=== PATIENT | male | born 1950 | race Caucasian/White ===

== ENCOUNTER 2023-06-14 19:53 | Inpatient (IN) | payer MEDICARE, OTHER, SELFPAY ==
[2023-06-14] VITALS (14 sets, daily range): BP systolic 62–119; BP diastolic 35–72; BMI 46.0; BMI 44.9
[2023-06-14 18:20] LABS: % Basophils 0.3 % (0-2); % Eosinophils 0.4 % (0-6); % Immature Granulocytes 0.7 % (0-0.5); % Lymphocytes 2.2 % (20.5-51.1); % Monocytes 5.5 % (1.7-9.3); % Neutrophils 90.9 % (42.2-75.2); Absolute Basophils 0.1 10^3/uL (0-0.2); Absolute Eosinophils 0.1 10^3/uL (0-0.7); Absolute Immature Granulocytes 0.1 10^3/uL (0-0.05); Absolute Lymphocytes 0.4 10^3/uL (1.2-3.4); Absolute Monocytes 0.9 10^3/uL (0.1-0.6); Absolute Neutrophils 14.6 10^3/uL (1.4-6.5); Hematocrit 31.9 % (39.0-52.0); Hemoglobin 10.3 g/dL (13.0-18.0); Mean Corp Hgb Conc. 32.3 g/dL (33.0-37.0); Mean Corpuscular Hgb 27.3 pg (27.0-31.0); Mean Corpuscular Volume 84.6 fL (80.0-94.0); Mean Platelet Volume 9.4 fL (7.4-10.4); Nucleated Red Blood Cells % 0 % (-); Platelet Count 265 10^3/uL (130-400); Red Blood Cell Count 3.77 10^6/uL (4.70-6.10); Red Cell Dist. Width 13.7 % (11.5-14.5); White Blood Cell Count 16.1 10^3/uL (4.8-10.8)
[2023-06-14 18:22] LABS: Urine Albumin Negative (Neg - Trace); Urine Bilirubin Negative (Negative); Urine Character Clear (Clear); Urine Color Yellow; Urine Glucose Negative (Negative); Urine Ketone Negative (Negative); Urine Leukocyte Negative (Negative); Urine Nitrite Negative (Negative); Urine Occult Blood Negative (Negative); Urine Specific Gravity 1.015 (<1.030); Urine Urobilinogen Negative (Neg - 1+)
[2023-06-14] MEDS: TYLENOL 1000 MG PO (18:26)
[2023-06-14 18:27] LABS: Lactic Acid 1.2 mmol/L (0.7-2.0)
[2023-06-14 18:29] LABS: ALT (SGPT) 19 U/L (0-50); AST (SGOT) 22 U/L (17-59); Albumin 3.8 g/dl (3.5-5.0); Alkaline Phosphatase 65 U/L (38-126); Blood Urea Nitrogen 46 mg/dl (9-20); Carbon Dioxide 22 mmol/L (22-30); Chloride 105 mmol/L (98-107); Estimated Creatinine Clearance > 125 ml/min; Glucose 117 mg/dl (70-99); Potassium 5.2 mmol/L (3.5-5.1); Sodium 134 mmol/L (135-145); Total Bilirubin 0.4 mg/dl (0.2-1.3); Total Protein 6.9 g/dl (6.3-8.2); eGFR > 60.00
--- NOTE | 2023-06-14 18:37 | ED.GENMED ---
History of Present Illness
General
Chief Complaint: Skin Problem
Time Seen by Provider: 06/14/23 18:02
Travel History
Have you had any contact with someone who has COVID-19?: No
Do you have any symptoms of coronavirus? Fever > 100 degrees, chills, cough, shortness of breath, sore throat, loss of taste or smell, muscle aches, or headache?: No
History of Present Illness
History of Present Illness:
72-year-old male with history of venous stasis and chronic right lower extremity wounds presents to the emergency department for evaluation of fever and chills developing this morning. Per his son and his right lower extremity wounds have gotten
worse and the redness and swelling of the leg has demonstrably worsened in the past 24 hours. He follows with outpatient wound care and had a wound culture that resulted today, polymicrobial growth however notable for Pseudomonas, Klebsiella,
Serratia, and beta-hemolytic strep. These results are not available in this medical record system however the son has availability of the test results on his patient portal, there is no significant resistance pattern within the microbes it appears
that ceftazidime, levofloxacin, meropenem, tobramycin all have a sensitivity to the three chief species.
Past History
Past History
ED Past Medical History: GERD, HTN, Other (Obesity, PNA, Cellulitis, Sleep Apea) and Other (Peripheral vascular disease, venous stasis ulcer)
ED Past Surgical History: Appendectomy and Tonsilectomy
Social History
Tobacco: Non-smoker
Alcohol: None
Drug: None
Personal:
Living: with family
Employment: Employed
Family History
Family History: Other (Noncontributory)
Review of Systems
Review of Systems
Allergies reviewed?: Yes
All Other Systems: ROS reviewed and negative except as documented in HPI and ROS
Phy Exam
Physical Exam
Physical Exam:
GEN: Well appearing, NAD, WDWN
Eyes: PERRLA, EOMs intact, no scleral icterus
HENT: NCAT, oral mucosa moist, no JVD, no cervical adenopathy.
Lungs: CTAB, no wheezes, rales, rhonchi, normal chest wall excursion
Cardiac: Tachycardic, regular
Abdomen: S, NT, ND, NABS, no masses or hepatosplenomegaly
Neuro: AO x 3
MSK: No gross deformity or ecchymosis. No edema. No digital clubbing
Skin: Severe edema in the right lower extremity right lower extremity lateral venous stasis ulcer, copious serosanguineous discharge. Small wounds to the medial aspect of the right lower extremity with mild bleeding
Psych: Calm, cooperative, proper hygiene
Course
Orders/Labs/Results
Orders:
Orders
06/14/23 18:01
Electrocardiogram (*1) Urgent
Reason for Study: Other
Other Reason for Exam: Possible Sepsis
EKG- Treatment ONCE
IV Insert/Care/Rem.- Treatment PRN
Straight cath- Treatment ONCE
O2 Therapy [RESP] Urgent
Titrate/Wean O2 to maintain O2 sat greater than (%): 93
Special Instructions: TO MAINTAIN CONTINUOUS O2 SATS > OR = 93%
Pulse Ox/cont/shift [RESP] Urgent
Quantity: 1
Special Instructions: CONTINUOUS
06/14/23 18:06
Complete Blood Count/With Diff Urgent
Comprehensive Metabolic Panel Urgent
Lactic Acid Q4H
Comment: ON ICE, CANCEL 2ND ORDER IF FIRST LACTIC ACID LEVEL <2
Urinalysis Reflex To Culture Urgent
Date Specimen was Collected: 06/14/23
Time Specimen was Collected: 18:01
Blood Culture Q30M
JOSUÉ Source: Blood/Venous
Specimen Description:
Comment: FROM 2 SEPARATE SITES
Blood Culture Q30M
JOSUÉ Source: Blood/Venous
Specimen Description:
Comment: FROM 2 SEPARATE SITES
06/14/23 18:23
Acetaminophen [Tylenol] 1,000 mg .ROUTE .STK-MED ONE
06/14/23 18:25
Acetaminophen [Tylenol] 1,000 mg PO NOW STA
06/14/23 18:37
LevoFLOXacin 750 MG/150 ML [Levaquin] 750 mg in 150 ml IV NOW
06/14/23 19:05
0.9% Sodium Chloride 1000 ml [Nss] 1,000 ml IV BOLUS
06/14/23 19:42
Admit/Transfer Patient As Directed
Co-Sign Provider:
Level of Care: Inpatient admission
Assign to:: IMU- Intermediate Care
Physician / Group: barbra
Diagnosis: infected venous stasis ulcer
Reason for Hospitalization: infected venous stasis ulcer
Expected length of stay greater than two midnights?: Yes
ELOS- Estimated Length of Stay in days: 2
I certify the patient meets the requirements for IP care: Yes
Code Status As Directed
Resuscitation Status: Full Code
06/14/23 19:43
Venous Doppler Lwr Ext Rt [US Periph Venous LOWER Ext RT] Urgent
Comment:
Reason For Exam: swelling, redness and pain
Abnormal Lab Results
06/14/23
18:06
WBC 16.1 H 10^3/uL
(4.8-10.8)
RBC 3.77 L 10^6/uL
(4.70-6.10)
Hgb 10.3 L g/dL
(13.0-18.0)
Hct 31.9 L %
(39.0-52.0)
MCHC 32.3 L g/dL
(33.0-37.0)
Abs Immat Gran (auto) 0.1 H 10^3/uL
(0-0.05)
Absolute Neuts (auto) 14.6 H 10^3/uL
(1.4-6.5)
Absolute Lymphs (auto) 0.4 L 10^3/uL
(1.2-3.4)
Absolute Monos (auto) 0.9 H 10^3/uL
(0.1-0.6)
Immature Gran % 0.7 H %
(0-0.5)
Neutrophils % 90.9 H %
(42.2-75.2)
Lymphocytes % 2.2 L %
(20.5-51.1)
Sodium 134 L mmol/L
(135-145)
Potassium 5.2 H mmol/L
(3.5-5.1)
BUN 46 H mg/dl
(9-20)
Glucose 117 H mg/dl
(70-99)
06/14/23 18:06
06/14/23 18:06
Vital Signs
Initial and Last Documented VS:
Initial Vital Signs
Temp Pulse Resp Pulse Ox
102.9 F H 110 28 96
06/14/23 18:01 06/14/23 18:01 06/14/23 18:01 06/14/23 18:01
Last Documented Vital Signs
Temp Pulse Resp BP Pulse Ox
100.7 F H 83 26 94/49 98
06/14/23 20:16 06/14/23 21:00 06/14/23 21:00 06/14/23 21:00 06/14/23 20:35
MDM/Problems Addressed
MDM/Problems Addressed:
Patient is septic with leukocytosis and fever most likely due to cellulitis of acute on chronic right lower extremity wound. IV Levaquin administered based on outpatient culture results. Will admit to the hospitalist service for IV antibiotics and
further management
*Critical Care Note
Total Time (30-74mins, 75-104mins- exclusive of procedures): Not Applicable
ED Attending Note
-
Portions of this chart may have been created with voice recognition software.� Occasional wrong word or��sound alike� substitutions may have occurred due to the inherent limitations of voice recognition software.
Discharge Plan
Departure
Patient Disposition: Admit
Date of Disposition: 06/14/23
Time of Disposition: 19:14
Admit to: IMU
Presentation/result/management discussed w/ accepting MD/DO: Hospitalist
Discharge Problem:
Sepsis, Cellulitis of leg, right
Interventions
Interventions:
*Risk Screen - Suicide Last Done: 06/14/23 18:01
*General Assessment Last Done: 06/14/23 18:01
*Neglect/Abuse Screening Last Done: 06/14/23 18:01
*ED COVID-19 Vaccine History Last Done: 06/14/23 18:01
[2023-06-14] MEDS: LEVAQUIN 150 IV (18:47)
[2023-06-14] MEDS: NSS 1000 IV ×3 (19:08→21:44)
--- NOTE | 2023-06-14 19:45 | HPS.HSE ---
Addendum entered and electronically signed by Bran Rice MD 06/14/23 19:50:
Patient recently had right knee surgery in January after which he subsequently developed new right lower extremity venous ulcer wound.
Original Note:
Family Physician
-
Family Physician: * NONE
Chief Complaint
-
infected wound
History of Present Illness
72-year-old male past medical history of venous stasis, chronic right lower extremity wounds, HFpEF, hypertension, GERD, obesity, sleep apnea, presenting to the emergency room for evaluation of fever and chills since this morning. As per son his
right lower extremity was gotten worse with redness and swelling of the leg in the past 2 to 3 days. He follows with outpatient wound care and had a wound culture today which showed polymicrobial growth notable for Pseudomonas, Klebsiella, Serratia
and beta-hemolytic strep. Results are available on patient portal and do not show any significant resistance pattern with 3 organisms sensitive to ceftazidime, levofloxacin, meropenem and tobramycin.
Patient originally had a right lower extremity venous stasis ulcer wound for which she was hospitalized at [facility] last year.
Patient denies smoking or alcohol.
Medical History
Past Medical History
Past Medical History: Reports Other (venous stasis, chronic right lower extremity wounds, HFpEF, hypertension, GERD, obesity, sleep apnea, )
Past Surgical History: Reports None
Social History
Tobacco: Non-smoker
Alcohol: None
Drug: None
Family History
Family History: Not pertinent
Allergies / Home Medications
Allergies reflects when Allergies were last updated in [employer].
Home Medications with original date entered in [employer]
Allergy/Medication List:
Allergies
Allergy/AdvReac Type Severity Reaction Status Date / Time
No Known Allergies Allergy Verified 02/27/18 17:28
Home Medications
ascorbic acid (vitamin C) 500 mg tablet (Vitamin C) 500 mg PO BID Supplement 02/21/18
ferrous sulfate 325 mg (65 mg iron) tablet (FeroSul) 325 mg PO BID Supplement 02/21/18
furosemide 20 mg tablet 20 mg PO BID Fluid retention/Swelling 02/21/18
tamsulosin 0.4 mg capsule 0.4 mg PO QPM Urinary issue 02/21/18
aspirin 81 mg chewable tablet 81 mg PO DAILY Blood clot prevention/tx 12/07/21
cholecalciferol (vitamin D3) 25 mcg (1,000 unit) tablet 25 mcg PO DAILY Supplement 12/07/21
glucosamine sulfate 500 mg tablet (Glucosamine) 500 mg PO HS Supplement 12/07/21
lisinopril 40 mg tablet 40 mg PO DAILY Blood pressure 12/07/21
tadalafil 5 mg tablet 5 mg PO DAILY PRN ED 06/14/23
Review of Systems
-
History Source: Patient
A 12 point ROS was completed and negative except as noted: Yes
Constitutional: Reports No Symptoms
EENT: Reports No Symptoms
Respiratory: Reports No Symptoms
Cardiac: Reports No Symptoms
Abdomen/GI: Reports No Symptoms
: Reports No Symptoms
Musculoskeletal: Reports No Symptoms
Skin: Reports See HPI
Neurological: Reports No Symptoms
Endocrine: Reports No Symptoms
Hematologic/Lymphatic: Reports No Symptoms
Psych: Reports No Symptoms
Physical Exam
Vital Signs
Vital Signs
Temp Pulse Resp BP Pulse Ox
102.9 F H 99 28 103/35 93
06/14/23 18:01 06/14/23 19:15 06/14/23 19:15 06/14/23 19:05 06/14/23 19:15
Physical Exam
General: Well Developed, Well Nourished and No Apparent Distress
HEENT: NormoCephalic, Moist mucous membranes and Atraumatic
Respiratory: Clear
Cardiac: S1/S2 and Regular Rhythm; No Murmur or Rub
GI: Soft, Non Tender, Non Distended and Normal Bowel Sounds; No Organomegaly
Rectal: Deferred by Provider
Musculoskeletal: No Clubbing, No Cyanosis and No Edema
Skin: Other (right lower extremity wounds, erythema and swelling ); No Rash
Neuro: Nonfocal/grossly intact
Laboratory Results
-
06/14/23 18:06
06/14/23 18:06
Laboratory Results
Lactic Acid Cancelled 06/14/23 22:15
Total Bilirubin 0.4 mg/dl (0.2-1.3) 06/14/23 18:06
AST 22 U/L (17-59) 06/14/23 18:06
ALT 19 U/L (0-50) 06/14/23 18:06
Alkaline Phosphatase 65 U/L (38-126) 06/14/23 18:06
Data Reviewed
-
Lab Data: Labs Reviewed by me
Old Records: Reviewed
Impression/Plan
-
IMPRESSION:
PLAN:
# Sepsis (fever, leukocytosis, tachycardia, hypotension) secondary to infected right lower extremity venous stasis ulcer/wound
-Wound culture today showed polymicrobial growth notable for Pseudomonas, Klebsiella, Serratia and beta-hemolytic strep
-Check blood cultures
-IV fluids
-Hold Lasix
-Cefepime
-Check venous ultrasound to rule out DVT
-Wound care consulted
#Chronic venous stasis dermatitis
#History of varicose veins status post vein stripping of right lower extremity
-Hold Lasix
-Patient had venous and arterial imaging in June 2022
-Continue aspirin
-Outpatient follow-up with vascular
Chronic HFpEF
-Hold Lasix
Essential hypertension
-Hold lisinopril due to hypotension
GERD
Obesity
Obstructive sleep apnea
BPH
-Continue tamsulosin
Chronic anemia
-Hemoglobin stable
-Continue ferrous sulfate
Full code
DVT prophylaxis�heparin
cardiac diet
[2023-06-14] MEDS: MAXIPIME 2000 MG IV (21:43)
[2023-06-14] MEDS: VITAMIN C 500 MG PO (21:44)
[2023-06-14] MEDS: FEOSOL 325 MG PO (21:44)
[2023-06-14] MEDS: STERILE WATER FOR INJECTION 10 ML IV (21:44)
[2023-06-14] MEDS: HEPARIN 5000 UNITS SC (21:44)
--- NOTE | 2023-06-14 22:24 | PTCARENOTE ---
Received pt from ED via stretcher. Pt AAOx3 but forgetful at times. Pt offers no complaints at this time. RLE wound is wrapped; C/D/I. (+) PP. Some moisture damage under abdominal folds; desenex ordered and applied. Pt using own urinal from
home to help minimize spilling per his son, Layton, who is at bedside. Layton - Pt's POA - also discussed that he has in the past used a CPAP but does not use it regularly. Pt has been getting increasingly more forgetful the last few months; Son has
discussed this with pt's PCP. Pt resting in bed with call perez in reach.
[2023-06-14] MEDS: TYLENOL 650 MG PO (23:30)
[2023-06-15] VITALS (24 sets, daily range): BP systolic 83–169; BP diastolic 56–110; BMI 45.2
[2023-06-15 04:42] LABS: % Basophils 0.2 % (0-2); % Immature Granulocytes 0.8 % (0-0.5); % Lymphocytes 2.2 % (20.5-51.1); % Monocytes 3.7 % (1.7-9.3); % Neutrophils 93.1 % (42.2-75.2); Absolute Immature Granulocytes 0.2 10^3/uL (0-0.05); Absolute Lymphocytes 0.4 10^3/uL (1.2-3.4); Absolute Monocytes 0.8 10^3/uL (0.1-0.6); Absolute Neutrophils 18.9 10^3/uL (1.4-6.5); Hematocrit 30.7 % (39.0-52.0); Hemoglobin 9.7 g/dL (13.0-18.0); Mean Corp Hgb Conc. 31.6 g/dL (33.0-37.0); Mean Corpuscular Hgb 27.6 pg (27.0-31.0); Mean Corpuscular Volume 87.2 fL (80.0-94.0); Mean Platelet Volume 9.9 fL (7.4-10.4); Nucleated Red Blood Cells % 0 % (-); Platelet Count 228 10^3/uL (130-400); Red Blood Cell Count 3.52 10^6/uL (4.70-6.10); Red Cell Dist. Width 14.1 % (11.5-14.5); White Blood Cell Count 20.3 10^3/uL (4.8-10.8)
[2023-06-15 05:10] LABS: ALT (SGPT) 18 U/L (0-50); AST (SGOT) 22 U/L (17-59); Albumin 3.3 g/dl (3.5-5.0); Alkaline Phosphatase 69 U/L (38-126); Blood Urea Nitrogen 43 mg/dl (9-20); Calcium 8.6 mg/dl (8.4-10.2); Carbon Dioxide 22 mmol/L (22-30); Chloride 106 mmol/L (98-107); Estimated Creatinine Clearance 119 ml/min; Glucose 105 mg/dl (70-99); Potassium 5.1 mmol/L (3.5-5.1); Sodium 136 mmol/L (135-145); Total Bilirubin 0.5 mg/dl (0.2-1.3); Total Protein 6.2 g/dl (6.3-8.2); eGFR > 60.00
[2023-06-15] MEDS: MAXIPIME 2000 MG IV ×3 (05:36→21:37)
[2023-06-15] MEDS: STERILE WATER FOR INJECTION 10 ML IV ×3 (05:36→21:38)
--- NOTE | 2023-06-15 06:01 | PTCARENOTE ---
Pt having difficulty voiding. Bladder scanned for 493; straight cath for 475. Pt has sensation to void but is unable. Notified BOOTMAKER.
--- NOTE | 2023-06-15 07:10 | W.PN.HOSP.TC ---
Today's Communication/Plan
-
Will continue on cautious IV fluids for now
Continue to hold furosemide think we can restart lisinopril at this point
Would insert Reeder catheter as suspect obstructive uropathy from prostate
Try for a void trial in 2 or 3 days
Wound care still to see
Continue cefepime based on outpatient culture results/await blood cultures
Assessment / Plan
Assessment / Plan
72-year-old male past medical history of venous stasis, chronic right lower extremity wounds, HFpEF, hypertension, GERD, obesity, sleep apnea, presenting to the emergency room for evaluation of fever and chills since this morning. As per son his
right lower extremity was gotten worse with redness and swelling of the leg in the past 2 to 3 days. He follows with outpatient wound care and had a wound culture today which showed polymicrobial growth notable for Pseudomonas, Klebsiella, Serratia
and beta-hemolytic strep. Results are available on patient portal and do not show any significant resistance pattern with 3 organisms sensitive to ceftazidime, levofloxacin, meropenem and tobramycin.
Patient originally had a right lower extremity venous stasis ulcer wound for which she was hospitalized at [facility] last year. He also had recent right total knee replacement in January
Patient denies smoking or alcohol. He denies a history of prostatic hypertrophy but is on tamsulosin and was having urinary retention of postvoid residuals of over 450 on multiple more than 1 occasion overnight.
# Sepsis (fever, leukocytosis, tachycardia, hypotension) secondary to infected right lower extremity venous stasis ulcer/wound
-No longer tachycardic and BP is stabilized
-Wound culture today showed polymicrobial growth notable for Pseudomonas, Klebsiella, Serratia and beta-hemolytic strep
-Check blood cultures
-IV fluids
-Hold Lasix
-Cefepime
-Check of on admission venous ultrasound ruled out DVT
-Wound care consulted
#Chronic venous stasis dermatitis
#History of varicose veins status post vein stripping of right lower extremity
-Hold Lasix
-Patient had venous and arterial imaging in June 2022
-Continue aspirin
-Outpatient follow-up with vascular
Chronic HFpEF
-Hold Lasix
Essential hypertension
-Hold lisinopril due to hypotension
GERD
Obesity
Obstructive sleep apnea
BPH
-Continue tamsulosin
Chronic anemia
-Hemoglobin stable
-Continue ferrous sulfate
Full code
DVT prophylaxis�heparin
cardiac diet
Anticipated Discharge: Within 24 hours
Subjective/Interval History
-
Date of Service: June 15, 2023
Issues overnight included recurrent urinary retention that required straight catheterization with some difficulty due to his body habitus and possible resistance from prostate although he denies prostate history. Patient has been on Flomax
Objective Data
-
Labs:
Laboratory Results
06/15/23
04:06
WBC 20.3 H
Hgb 9.7 L
Hct 30.7 L
Plt Count 228
Sodium 136
Potassium 5.1
Chloride 106
Carbon Dioxide 22
BUN 43 H
Creatinine 0.9
Glucose 105 H
Calcium 8.6
Total Bilirubin 0.5
AST 22
ALT 18
Alkaline Phosphatase 69
Vital Signs:
Vital Signs
Temp Pulse Resp BP Pulse Ox
99.4 F 84 24 120/62 96
06/15/23 04:11 06/15/23 06:00 06/15/23 06:00 06/15/23 06:00 06/15/23 06:00
I&O
06/14/23 06/15/23 06/16/23
06:59 06:59 06:59
Intake Total 1380 / 1380
Output Total 475 / 475
Balance 905 / 905
Physical Exam
-
General: Morbidly Obese
HEENT: Normocephalic
Respiratory: Clear to Auscultation
Cardiac: Regular Rhythm
GI: Soft
Musculoskeletal: Edema, Right Lower Extrem, Edema, Left Lower Extrem and Other (Stasis dermatitis noted throughout both lower extremities/ulcerations of right pretibial and posterior calf of right lower extremity with drainage)
Skin: Ulcers and Lesions
Neuro: Awake, Alert and Oriented
Psych: Calm
Data Reviewed
-
Total Time Spent with Patient (in minutes): 56
Labs: Labs Reviewed by me (Leukocytosis of 20,000 with left shift hemoglobin 9.7/BUN of 43/urinalysis was benign)
--- NOTE | 2023-06-15 07:37 | PTCARENOTE ---
Pt sitting on side of bed urinating in his urinal from home.
--- NOTE | 2023-06-15 07:52 | PTCARENOTE ---
Pt voided 150 louis placed with 600 out
[2023-06-15] MEDS: TYLENOL 650 MG PO ×2 (08:10→17:31)
[2023-06-15] MEDS: LOW STRENGTH ASPIRIN 81 MG PO (08:10)
[2023-06-15] MEDS: HEPARIN 5000 UNITS SC ×2 (08:11→21:37)
[2023-06-15] MEDS: ZESTRIL 40 MG PO (08:11)
[2023-06-15] MEDS: VITAMIN D3 (cholecalciferol) 25 MCG PO (08:12)
[2023-06-15] MEDS: FEOSOL 325 MG PO ×2 (08:12→19:32)
[2023-06-15] MEDS: VITAMIN C 500 MG PO ×2 (08:12→19:33)
[2023-06-15] MEDS: NSS 1000 IV (08:20)
--- NOTE | 2023-06-15 09:42 | PTCARENOTE ---
Pt desat to 82% on RA now on 2 l O2
--- NOTE | 2023-06-15 10:14 | WOUNDNOTE ---
BUTTOCKS AND POSTERIOR THIGHS
--- NOTE | 2023-06-15 10:15 | WOUNDNOTE ---
LEGS WITH RESIDUAL ZINC OXIDE TO PERIWOUND.
--- NOTE | 2023-06-15 10:15 | WOUNDNOTE ---
R POSTERIOR LEG WITH ZINC OXIDE ON PERIWOUND
--- NOTE | 2023-06-15 10:16 | WOUNDNOTE ---
R MEDIAL LOWER LEG
--- NOTE | 2023-06-15 10:17 | WOUNDNOTE ---
WON RN note: Patient admitted with RLE cellulitis and sepsis.
See H&P for complete history.
PMH: R knee surgery, morbid obesity, HTN, chronic R leg venous stasis ulcer for several years, RLE vein stripping, appendectomy, lymphedema.
Wound Location and type/assessment: Patient admitted with R lower leg venous stasis ulcers. Large open cluster posterior lower leg and small weeping area medial lower leg. Vascular ultrasound negative for DVT. Both legs with lymphedema and are dry,
L leg without any ulcers, heels intact. Patient known to service and last seen 12/09/21. This time leg not as red and swollen, patient states he gets daily dressing changes by VN. Patient's son at bedside updated on current dressings and compression
being used. Been to wound center in past but has difficulty travelling to [facility] now. Patient states he was told not to use Lymphedema pumps after knee surgery this past January. With assist of 3 staff members patient ambulated from bedside commode
to bed. Gluteal cleft with slit opening, suspect from MASD. Patient now has a Reeder in for retention, was incontinent of some stool on Ultrasorb pad. Sacrum is intact, posterior thighs with chronic discoloration. Patient confirmed he sits in
recliner chair allot, not able to properly elevate legs.
Appetite: good.
Pressure redistribution devices in place: Centrella Max air. Needs assist with ADL's.
Plan: RLE dressing changed using Xeroform and dry dressing with martha wrap knee high. Miconazole powder already on order for skin folds. Applied silicone foam to gluteal cleft, next change can add fungal powder and soft gauze if foam not working.
Applied A&D ointment to dry skin on legs, ordered mineral oil to start tomorrow.
Will confirm orders with hospitalist and updated JOHN Rand. Care plan to be updated and will follow as needed.
Note to case management requested for discharge: Continue VN if home.
Patient to follow up at wound care center if able upon discharge.
--- NOTE | 2023-06-15 14:32 | CM ---
CM met with pt bedside
Pt recently
His son and family now live in the main house
he moved into an attached inlaw suite, no setps to enter
Pt notes independence with his ADLs with use of a WW
He has a handicap accessible bathroom
He has a cpap provided by [facility] and is not not on oxygen at baseline
Pt notes he is currently working with [facility]
He also currently attends outpatient WOC
PCP- Paty Mills
Rx-[facility] [address] [facility]
Per nursing, pt is a 2-3 person assist
PT eval pending
Anticipate SNF recommendation- PAC provided
Pt will have qualifying stay on 06/16
WOC following with recommendations for VN or outpt WOC follow up
Discharge Disposition- anticipate SNF
[2023-06-15] MEDS: FLOMAX 0.400000000000000022 MG PO (17:31)
--- NOTE | 2023-06-15 22:20 | PTCARENOTE ---
This RN discussed POC with pt and pt's son at bedside. Pt's son remains very involved in pt care and inquires about case management involvement and plan going forward. This RN discussed wound care and maintenance, hygiene care, and ADLs with pt and
son at bedside. Pt was able to use BSC with rolling walker and assist x3. Pt requires a lot of assistance standing up, but is able to take small steps with less assistance using the rolling walker. Son brought in home CPAP and pt is agreeable to
wear HS. Call perez within reach.
[2023-06-16] VITALS (11 sets, daily range): BP systolic 95–167; BP diastolic 50–93; PULSE 88; O2SAT 98–99; BMI 44.3
[2023-06-16] MEDS: MAALOX 30 ML PO ×2 (02:32→08:44)
--- NOTE | 2023-06-16 02:34 | PTCARENOTE ---
Pt c/o cramping stomachache which is causing increasing discomfort with nausea. Pt states he would normally take maalox when he feels this way. Maalox 30ml ordered by SHAYLA and given per APR.
[2023-06-16] MEDS: STERILE WATER FOR INJECTION 10 ML IV ×3 (05:23→21:20)
[2023-06-16] MEDS: MAXIPIME 2000 MG IV ×3 (05:23→21:20)
[2023-06-16 06:22] LABS: Hematocrit 29.6 % (39.0-52.0); Hemoglobin 9.3 g/dL (13.0-18.0); Mean Corp Hgb Conc. 31.4 g/dL (33.0-37.0); Mean Corpuscular Hgb 27.4 pg (27.0-31.0); Mean Corpuscular Volume 87.3 fL (80.0-94.0); Mean Platelet Volume 9.7 fL (7.4-10.4); Platelet Count 184 10^3/uL (130-400); Red Blood Cell Count 3.39 10^6/uL (4.70-6.10); Red Cell Dist. Width 14.2 % (11.5-14.5); White Blood Cell Count 8.4 10^3/uL (4.8-10.8)
[2023-06-16 06:50] LABS: Blood Urea Nitrogen 25 mg/dl (9-20); Calcium 8.7 mg/dl (8.4-10.2); Carbon Dioxide 23 mmol/L (22-30); Chloride 107 mmol/L (98-107); Estimated Creatinine Clearance > 125 ml/min; Glucose 119 mg/dl (70-99); Potassium 4.6 mmol/L (3.5-5.1); Sodium 133 mmol/L (135-145); eGFR > 60.00
--- NOTE | 2023-06-16 07:06 | W.PN.HOSP.TC ---
Today's Communication/Plan
-
Seems to be responding is no longer tachycardic no longer hypotensive and leukocytosis resolved and no longer febrile
Has developed na
usea since here and may be in relation to cefepime will consult ID for possible alternative to treat his polymicrobial infection of his wound
Increase activity
Resuming antihypertensives
Continue to monitor CBC and BMP
Assessment / Plan
Assessment / Plan
72-year-old male past medical history of venous stasis, chronic right lower extremity wounds, HFpEF, hypertension, GERD, obesity, sleep apnea, presenting to the emergency room for evaluation of fever and chills since this morning. As per son his
right lower extremity was gotten worse with redness and swelling of the leg in the past 2 to 3 days. He follows with outpatient wound care and had a wound culture today which showed polymicrobial growth notable for Pseudomonas, Klebsiella, Serratia
and beta-hemolytic strep. Results are available on patient portal and do not show any significant resistance pattern with 3 organisms sensitive to ceftazidime, levofloxacin, meropenem and tobramycin.
Patient originally had a right lower extremity venous stasis ulcer wound for which she was hospitalized at [place] last year. He also had recent right total knee replacement in January
Patient denies smoking or alcohol. He denies a history of prostatic hypertrophy but is on tamsulosin and was having urinary retention of postvoid residuals of over 450 on multiple more than 1 occasion overnight.
# Sepsis (fever, leukocytosis, tachycardia, hypotension) secondary to infected right lower extremity venous stasis ulcer/wound
-No longer tachycardic and BP is stabilized
-Leukocytosis now resolved from 20,000
-Wound culture today showed polymicrobial growth notable for Pseudomonas, Klebsiella, Serratia and beta-hemolytic strep
-Check blood cultures no growth to date
-IV fluids have been discontinued
-Hold Lasix
-Cefepime may be offering some side effects with nausea
-Check of on admission venous ultrasound ruled out DVT
-Wound care consulted
-Consult ID with input on possible alternative to cefepime that is causing nausea I believe
#Chronic venous stasis dermatitis
#History of varicose veins status post vein stripping of right lower extremity
-Hold Lasix
-Patient had venous and arterial imaging in June 2022
-Continue aspirin
-Outpatient follow-up with vascular
Chronic HFpEF
-Hold Lasix
Essential hypertension
-Hold lisinopril due to hypotension
-Lisinopril resumed/SBP improved
GERD
Obesity
Obstructive sleep apnea
BPH
-Continue tamsulosin
Chronic anemia
-Hemoglobin stable
-Continue ferrous sulfate
Full code
DVT prophylaxis�heparin
cardiac diet
Anticipated Discharge: 24 - 48 hours
Subjective/Interval History
-
Date of Service: June 16, 2023
Complaining of nausea anytime he attempts to eat he has only noticed this once he was hospitalized. He had relief with Maalox last night. He did develop some loose stooling but has since developed some more formed to loose stools overnight.
Objective Data
-
Labs:
Laboratory Results
06/16/23
06:00
WBC 8.4
Hgb 9.3 L
Hct 29.6 L
Plt Count 184
Sodium 133 L
Potassium 4.6
Chloride 107
Carbon Dioxide 23
BUN 25 H
Creatinine 0.6 L
Glucose 119 H
Calcium 8.7
Vital Signs:
Vital Signs
Temp Pulse Resp BP Pulse Ox
98.9 F 80 26 113/68 96
06/16/23 03:30 06/16/23 06:00 06/16/23 06:00 06/16/23 06:00 06/16/23 06:00
I&O
06/15/23 06/16/23 06/17/23
06:59 06:59 06:59
Intake Total 1380 / 1380 840 / 840
Output Total 475 / 475 1800 / 1800
Balance 905 / 905 -960 / -960
Review of Systems
-
History Source: Patient and Family
Constitutional: Reports Fever (No fever last 24 hours)
Respiratory: Reports No Symptoms
Cardiac: Reports No Symptoms
Abdomen/GI: Reports No Symptoms and Diarrhea (Some form now)
Physical Exam
-
General: Obese
HEENT: Normocephalic
Respiratory: Clear to Auscultation
Cardiac: Regular Rhythm
GI: Soft, Nontender and Nondistended
Musculoskeletal: Edema, Right Lower Extrem (Med wrap around the area of ulceration and pretibial with surrounding stasis changes to both legs)
Skin: Ulcers and Lesions
Neuro: Awake
Data Reviewed
-
Total Time Spent with Patient (in minutes): 56
Labs: Labs Reviewed by me (Leukocytosis now resolved from 20,000-8.4 this morning./BUN down to 25 from 45 creatinine to 0.6)
[2023-06-16] MEDS: FEOSOL 325 MG PO ×2 (07:25→19:49)
[2023-06-16] MEDS: VITAMIN C 500 MG PO ×2 (07:25→19:49)
[2023-06-16] MEDS: HEPARIN 5000 UNITS SC (07:25)
[2023-06-16] MEDS: LOW STRENGTH ASPIRIN 81 MG PO (07:25)
[2023-06-16] MEDS: VITAMIN D3 (cholecalciferol) 25 MCG PO (07:25)
[2023-06-16] MEDS: ZESTRIL 40 MG PO (07:26)
[2023-06-16] MEDS: HYDROPHOR 1 APPLIC TOPICAL (07:26)
[2023-06-16] MEDS: DESENEX/MITRAZOL/ZEASORB 1 APPLIC TOPICAL (09:24)
--- NOTE | 2023-06-16 11:21 | PN.CDI ---
CDI
- -
CDI:
Physician Documentation Request
Admit Date: 06/14/23 19:53
Dear Doctor Terri,
Please review the following and provide your response in the progress notes.
Clinical Indicators:
Pt admitted with sepsis 2/2 Venous stasis dermatitis infected ulcer
Sodium labs are as below/ Did get IVFs
Laboratory Tests
06/14/23 06/16/23
18:06 06:00
Sodium 134 L 133 L
Based on the above, could you clarify in the progress notes, the appropriate diagnosis, if significant, that supports the above abnormalities and additional evaluation, monitoring and/or treatment rendered:
Hyponatremia
Abnormal lab value only
Other
Use of terms such as suspected, likely, concern for, or probable (associated with a specific diagnosis that is being evaluated, monitored, or treated as if it exists) are acceptable and can be coded in the inpatient setting, when documented at the
time of discharge.
Thank you,
Janet Jensen RN
CDI Specialist
[facility]
Please use your independent medical judgment in providing your response.
--- NOTE | 2023-06-16 12:42 | CON.ID ---
Consultation
-
Date/Time Consultation Requested: 06/16/2023 07:16
Date/Time Consultation Performed: 06/16/2023 1200
Requesting Provider: Dr. Murray
Performing Provider: Dr. Bonilla
Reason for Consultation: Fever, right lower extremity cellulitis
Chief Complaint / Past History
History of Present Illness
Jarret Jack is a 72-year-old man being evaluated at the request of Dr. Murray in regards to right lower extremity cellulitis. History is obtained from chart review, along with patient interview.
The patient has a significant past medical history of lower extremity venous stasis with ulcerations, along with chronic right lower extremity lymphedema. He reports that he has been caring for his right leg with compression wraps, but
approximately 2 days ago, he developed worsening of his chronic right lower extremity edema and developed fevers, chills and rigors. He reports he has been followed by wound care, and recent cultures revealed growth for Pseudomonas, Klebsiella,
Serratia and strep. spp. He reports that the day before presenting to the hospital he was started on outpatient antibiotics, but does not recall which particular antibiotic it was.
Upon presentation to the hospital he was found to be febrile to 102.9 degrees, and he was also found to have a leukocytosis. He was placed on empiric antibiotics, and Infectious Diseases is asked to comment upon further antimicrobial management.
At present, he denies any current fevers. He denies any significant pain in the right lower extremity or the groin. He notes no lymphadenopathy. He has reported some abdominal discomfort.
Past History
Additional Past Medical History:
GERD
Hypertension
Obesity (current BMI = 44)
Sleep apnea
Peripheral vascular disease
Venous stasis bilateral lower extremities
Chronic right lower extremity lymphedema
Additional Past Surgical History:
Appendectomy
Vein surgery
T&A
Allergy History:
No Known Allergies Allergy (Verified 02/27/18 17:28)
Medications Reviewed: Yes
Current Antibiotics:
Cefepime 2 g IV every 8 hours
Social History
Tobacco: Non-Smoker
Alcohol: None
Drug: None
Personal:
Living: With Family
Employment: Not Employed
Family History
Family History: Not Pertinent
Review of Systems
Vital Signs
Temp Pulse Resp BP Pulse Ox
98.5 F 77 26 124/65 99
06/16/23 11:20 06/16/23 07:26 06/16/23 07:25 06/16/23 07:26 06/16/23 11:00
Physical Exam
Physical Exam
Constitutional: No Acute Distress, Comfortable and Non-toxic
Eyes: No Conjunctival Hemorrhage and Sclera Anicteric
Cardiovascular: Regular Rate and S1/S2; Negative S3/S4
Pulmonary: Clear and Non Labored; Negative Wheezes, Rales or Rhonchi
Gastrointestinal: Soft, Non Tender, Non Distended, Normal Bowel Sounds and No Rebound
Extremities: Edema (4+), Erythema and Venous Insufficiency (B/L LE's); Negative Cyanosis
Musculoskeletal: Negative Joint Swelling
Skin: Warm and Dry
Wound: Other (RLE; superficial and related to venous insufficiency)
Neurological: Awake and Alert
Psychological: Calm
Lab / Diagnostic Study Results
06/16/23 06:00
06/16/23 06:00
Abs Immat Gran (auto) 0.2 10^3/uL (0-0.05) H 06/15/23 04:06
Absolute Neuts (auto) 18.9 10^3/uL (1.4-6.5) H 06/15/23 04:06
Absolute Lymphs (auto) 0.4 10^3/uL (1.2-3.4) L 06/15/23 04:06
Absolute Monos (auto) 0.8 10^3/uL (0.1-0.6) H 06/15/23 04:06
Absolute Basos (auto) 0.0 10^3/uL (0-0.2) 06/15/23 04:06
Immature Gran % 0.8 % (0-0.5) H 06/15/23 04:06
Neutrophils % 93.1 % (42.2-75.2) H 06/15/23 04:06
Lymphocytes % 2.2 % (20.5-51.1) L 06/15/23 04:06
Monocytes % 3.7 % (1.7-9.3) 06/15/23 04:06
Eosinophils % 0.0 % (0-6) 06/15/23 04:06
Basophils % 0.2 % (0-2) 06/15/23 04:06
Lactic Acid Cancelled 06/14/23 22:15
Microbiology Results
Micro:
06/14/23 22:08 MRSA Screen - Final
Nose No Methicillin Resistant Staphylococcus aureus isolated.
06/14/23 18:06 Blood Culture - Preliminary
Blood/Venous No Growth in 24 hours- Final report to follow
06/14/23 18:06 Blood Culture - Preliminary
Blood/Venous No Growth in 24 hours- Final report to follow
Imaging:
06/14/2023 lower extremity duplex ultrasound: Overall study is limited by body habitus. No evidence of femoral-popliteal deep venous thrombosis noted.
Assessment / Plan
Right lower extremity cellulitis
Fever
Leukocytosis
Chronic right lower extremity lymphedema
Obesity (current BMI = 44)
GERD
Hypertension
Sleep apnea
Peripheral vascular disease
Venous stasis bilateral lower extremities
Recommendations:
Continue with empiric cefepime for the present. Would continue with higher dose given morbid obesity.
Monitor blood cultures. These may ultimately be negative, though, given that the patient reports antibiotic therapy prior to admission.
Continue with local care to the right lower extremity wound.
Continue with lower extremity compressive modalities. Given overall body habitus, Med wrap's would be most beneficial.
Follow white count temperature curve
--- NOTE | 2023-06-16 14:45 | CM ---
CM following re:discharge planning.
Reviewed pt's chart, met with pt, pt's sister in law at bedside and spoke to pt's son Layton 3 times today.
PT and OT evaluations requested this morning and after their evaluations SNF level of care recommended. CM discussed it with pt, pt's sister in law and pt's son Layton who stated he has POA. A list of SNFs provided. Pt's son stated that pt was at [facility] in January 2023 and went to [facility], had At home rehab. Both pt and his family preferred [facility] as number one pice and [facility] as a back up plan. A referral to above SNFs made. Awaiting for determination.
D/C plan: preferred SNF. Number one choice - [facility]
CM will follow to assist pt with discharge to a preferred SNF.
--- NOTE | 2023-06-16 15:51 | PTCARENOTE ---
Verbal report called to Isha Orellana on .
[2023-06-16] MEDS: FLOMAX 0.400000000000000022 MG PO (17:25)
--- NOTE | 2023-06-16 18:13 | PTCARENOTE ---
Patient transferred from the ICU into room 401-01. Vital signs stable. Patient oriented to room and use of call perez and verbalizes understanding. Denies complaints at this time.
[2023-06-16] MEDS: LOVENOX 40 MG SC (18:41)
[2023-06-16 18:55] LABS: Hepatitis C Antibody Negative (Negative)
[2023-06-17 02:24] VITALS: BP 112/58
[2023-06-17] MEDS: STERILE WATER FOR INJECTION 10 ML IV ×3 (05:28→22:36)
[2023-06-17] MEDS: MAXIPIME 2000 MG IV ×3 (05:28→22:37)
[2023-06-17] MEDS: VITAMIN C 500 MG PO ×2 (07:15→19:50)
[2023-06-17] MEDS: LOW STRENGTH ASPIRIN 81 MG PO (07:15)
[2023-06-17] MEDS: FEOSOL 325 MG PO ×2 (07:15→19:50)
[2023-06-17] MEDS: VITAMIN D3 (cholecalciferol) 25 MCG PO (07:15)
[2023-06-17 07:25] VITALS: BP 107/57
[2023-06-17 07:53] LABS: Mean Corpuscular Hgb 27.3 pg (27.0-31.0); Mean Corpuscular Volume 87.9 fL (80.0-94.0); Mean Platelet Volume 9.5 fL (7.4-10.4); Platelet Count 189 10^3/uL (130-400); Red Cell Dist. Width 14.2 % (11.5-14.5); White Blood Cell Count 7.2 10^3/uL (4.8-10.8)
[2023-06-17 08:35] LABS: Blood Urea Nitrogen 19 mg/dl (9-20); Calcium 8.8 mg/dl (8.4-10.2); Carbon Dioxide 24 mmol/L (22-30); Chloride 102 mmol/L (98-107); Estimated Creatinine Clearance > 125 ml/min; Glucose 123 mg/dl (70-99); Potassium 4.3 mmol/L (3.5-5.1); Sodium 132 mmol/L (135-145); eGFR > 60.00
[2023-06-17] MEDS: ZESTRIL 40 MG PO (08:37)
[2023-06-17] MEDS: HYDROPHOR 1 APPLIC TOPICAL (08:41)
--- NOTE | 2023-06-17 08:58 | W.PN.ID1 ---
Date of Service
Date of Service: June 17, 2023
Today's Communication
Continue antibiotics per
Assessment / Plan
Right lower extremity cellulitis
Fever
- improved
Leukocytosis
- resolved
Chronic right lower extremity lymphedema
Obesity (current BMI = 44)
GERD
Hypertension
Sleep apnea
Peripheral vascular disease
Severe venous stasis bilateral lower extremities
Recommendations:
Continue with empiric cefepime for the present. Would continue with higher dose given morbid obesity.
Monitor blood cultures. These may ultimately be negative, though, given that the patient reports antibiotic therapy prior to admission.
Continue with local care to the right lower extremity wound.
Continue with lower extremity compressive modalities. Given overall body habitus, Med wrap's would be most beneficial. I have offered to MED wrap the LLE but patient had declined at present.
Follow white count temperature curve
If overall stable/improved in the next 24 to 48 hours, can likely transition to oral levofloxacin 750 mg every 24 hours for an additional 5 days.
Patient counseled on lymphedema and venous insufficiency/stasis treatment modalities.
Chief Complaint
-: Cellulitis (RLE)
Subjective / Review of Systems
Review of Systems: No Fever and No Chills
Vital Signs / Physical Exam
Vital Signs
Vital Signs
Temp Pulse Resp BP Pulse Ox
97.7 F 86 18 107/57 96
06/17/23 07:25 06/17/23 08:37 06/17/23 07:25 06/17/23 08:37 06/17/23 07:25
Physical Exam
Constitutional: No Acute Distress, Comfortable, Non-toxic and Obese
Eyes: No Conjunctival Hemorrhage; Negative Sclera Anicteric
Cardiovascular: S1/S2; Negative S3/S4
Pulmonary: Non Labored
Gastrointestinal: Soft, Non Tender and Non Distended
Extremities: Edema (4+ RLE edema) and Venous Insufficiency (severe; LLE)
Skin: Warm and Dry
Neurological: Awake and Alert
Psychological: Calm
Objective Data
Lab Data
Lab Results
06/17/23 07:39
06/17/23 07:39
Estimated Creat Clear > 125 ml/min 06/17/23 07:39
Lactic Acid Cancelled 06/14/23 22:15
Total Bilirubin 0.5 mg/dl (0.2-1.3) 06/15/23 04:06
AST 22 U/L (17-59) 06/15/23 04:06
ALT 18 U/L (0-50) 06/15/23 04:06
Alkaline Phosphatase 69 U/L (38-126) 06/15/23 04:06
Most recent labs reviewed.
Micro Results:
06/14/23 18:06 Blood Culture - Preliminary
Blood/Venous No Growth in 48 hours- Final report to follow
06/14/23 18:06 Blood Culture - Preliminary
Blood/Venous No Growth in 48 hours- Final report to follow
06/14/23 22:08 MRSA Screen - Final
Nose No Methicillin Resistant Staphylococcus aureus isolated.
Imaging:
06/14/2023 lower extremity duplex ultrasound: Overall study is limited by body habitus. No evidence of femoral-popliteal deep venous thrombosis noted.
--- NOTE | 2023-06-17 09:24 | W.PN.HOSP.TC ---
Today's Communication/Plan
-
Continue present course of cefepime/ID following will give us a outpatient treatment course
She obese stable for discharge to a rehab facility in the next 24 hours
Resume Lasix
Assessment / Plan
Assessment / Plan
72-year-old male past medical history of venous stasis, chronic right lower extremity wounds, HFpEF, hypertension, GERD, obesity, sleep apnea, presenting to the emergency room for evaluation of fever and chills since this morning. As per son his
right lower extremity was gotten worse with redness and swelling of the leg in the past 2 to 3 days. He follows with outpatient wound care and had a wound culture today which showed polymicrobial growth notable for Pseudomonas, Klebsiella, Serratia
and beta-hemolytic strep. Results are available on patient portal and do not show any significant resistance pattern with 3 organisms sensitive to ceftazidime, levofloxacin, meropenem and tobramycin.
Patient originally had a right lower extremity venous stasis ulcer wound for which she was hospitalized at [place] last year. He also had recent right total knee replacement in January
Patient denies smoking or alcohol. He denies a history of prostatic hypertrophy but is on tamsulosin and was having urinary retention of postvoid residuals of over 450 on multiple more than 1 occasion overnight.
# Sepsis (fever, leukocytosis, tachycardia, hypotension) secondary to infected right lower extremity venous stasis ulcer/wound
-No longer tachycardic and BP is stabilized
-Leukocytosis now resolved from 20,000
-Wound culture today showed polymicrobial growth notable for Pseudomonas, Klebsiella, Serratia and beta-hemolytic strep
-Check blood cultures no growth to date
-IV fluids have been discontinued
-Hold Lasix
-Cefepime may be offering some side effects with nausea
-Check of on admission venous ultrasound ruled out DVT
-Wound care consulted
-Consult ID with input on possible alternative to cefepime believe should continue on cefepime
#Chronic venous stasis dermatitis
#History of varicose veins status post vein stripping of right lower extremity
-Hold Lasix
-Patient had venous and arterial imaging in June 2022
-Continue aspirin
-Outpatient follow-up with vascular
Chronic HFpEF
-Hold Lasix
-Can be resumed
Essential hypertension
-Hold lisinopril due to hypotension
-Lisinopril resumed/SBP improved
GERD
Obesity
Obstructive sleep apnea
BPH
-Continue tamsulosin
Chronic anemia
-Hemoglobin stable
-Continue ferrous sulfate
Full code
DVT prophylaxis�heparin
cardiac diet
Anticipated Discharge: Within 24 hours
Subjective/Interval History
-
Date of Service: June 17, 2023
Improved for first day he has an appetite and feels that his nausea is also going away
Objective Data
-
Labs:
Laboratory Results
06/17/23
07:39
WBC 7.2
Hgb 9.0 L
Hct 29.0 L
Plt Count 189
Sodium 132 L
Potassium 4.3
Chloride 102
Carbon Dioxide 24
BUN 19
Creatinine 0.6 L
Glucose 123 H
Calcium 8.8
Vital Signs:
Vital Signs
Temp Pulse Resp BP Pulse Ox
97.7 F 86 18 107/57 96
06/17/23 07:25 06/17/23 08:37 06/17/23 07:25 06/17/23 08:37 06/17/23 07:25
I&O
06/16/23 06/17/23 06/18/23
06:59 06:59 06:59
Intake Total 840 / 840 970 / 970
Output Total 1800 / 1800 1924 / 1924
Balance -960 / -960 -955 / -955
Review of Systems
-
Unable to obtain full review of systems at this time due to: Dementia
History Source: Patient
Constitutional: Reports No Symptoms
Respiratory: Reports No Symptoms
Cardiac: Reports No Symptoms
Abdomen/GI: Reports No Symptoms
Skin: Reports Sores (rle)
Physical Exam
-
General: Morbidly Obese
HEENT: Normocephalic
Cardiac: Regular Rhythm
GI: Soft and Nontender
Genito-urinary: No Costovertebral Tender
Skin: Warm and Ulcers (rle pretib ulcerations over stasis changes)
Neuro: Awake
Psych: Calm
Data Reviewed
-
Total Time Spent with Patient (in minutes): 678
Labs: Labs Reviewed by me (No leukocytosis hemoglobin stable 9.0 chemistries sodium 132)
[2023-06-17] MEDS: LASIX 20 MG PO ×2 (09:52→19:49)
--- NOTE | 2023-06-17 13:24 | W.DS.TRANS ---
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
-
Discharge Instructions:
Discharge Diagnosis/Procedures Right lower extremity cellulitis
Leukocytosis resolved
morbid obesity with BMI of 44
Sleep apnea
Severe venous stasis bilateral lower extremity
Diet As tolerated
Activity As tolerated
Driving Restrictions As prior to admission
Instructions:
Stand-Alone Forms:
Changes to Home Medications: Yes
Discharge Medications:
DC Medications w/original date entered in [employer]
ascorbic acid (vitamin C) 500 mg tablet (Vitamin C) 500 mg PO BID Supplement 02/21/18
ferrous sulfate 325 mg (65 mg iron) tablet (FeroSul) 325 mg PO BID Supplement 02/21/18
furosemide 20 mg tablet 20 mg PO BID Fluid retention/Swelling 02/21/18
tamsulosin 0.4 mg capsule 0.4 mg PO QPM Urinary issue 02/21/18
aspirin 81 mg chewable tablet 81 mg PO DAILY Blood clot prevention/tx 12/07/21
cholecalciferol (vitamin D3) 25 mcg (1,000 unit) tablet 25 mcg PO DAILY Supplement 12/07/21
glucosamine sulfate 500 mg tablet (Glucosamine) 500 mg PO HS Supplement 12/07/21
lisinopril 40 mg tablet 40 mg PO DAILY Blood pressure 12/07/21
tadalafil 5 mg tablet 5 mg PO DAILY PRN ED 06/14/23
levofloxacin 750 mg tablet 750 mg PO DAILY #5 tabs 06/17/23
Home Medication Changes
levofloxacin 750 mg tablet 750 mg PO DAILY #5 tabs 06/17/23
Pending Results: No
Total time spent discharging patient (in min): 38
--- NOTE | 2023-06-17 13:26 | W.DCSUMMARY ---
Addendum entered and electronically signed by Tucker Murray MD 06/19/23 09:09:
Patient decided to wait an extra day to be reevaluated to see if he can have home care instead of an acute rehab facility and now is ready for discharge after being seen and evaluated by myself and evaluated by PT will arrange for [facility] for wound care
follow-up I have also advised him to continue compression dressings to his right lower extremity but probably both would be prudent I have advised that lymphedema follow-up but he was reticent to pursue that at this time. Will call in a
prescription for Levaquin 750 mg p.o. daily to his local pharmacy to complete a 5-day course going forward.
New discharge date now will be 19 Jun 2023
Original Note:
Discharge Summary
Discharge Data
Date of Admission: 06/14/23
Date of Discharge: 06/17/23
-
Pending Results: No
Hospital Course
72-year-old male past medical history of venous stasis, chronic right lower extremity wounds, HFpEF, hypertension, GERD, obesity, sleep apnea, presenting to the emergency room for evaluation of fever and chills since morning of admission as per son
his right lower extremity was gotten worse with redness and swelling of the leg in the past 2 to 3 days. Prior to admission. He follows with outpatient wound care and had a wound culture today which showed polymicrobial growth notable for
Pseudomonas, Klebsiella, Serratia and beta-hemolytic strep. Sensitivities reported to ceftazidime, levofloxacin, meropenem and tobramycin.
With his presentation of sepsis including fever leukocytosis tachycardia hypotension patient was admitted to the intermediate care unit. Presumptive diagnosis at time of presentation is right lower extremity cellulitis in the setting of severe
bilateral stasis dermatitis.
Initial leukocytosis of 20,000 improved after course of IV fluids and IV antibiotics with cefepime based on his weight at 2 g daily at time of presentation his furosemide dosing was withheld. An admission venous ultrasound did not show any signs of
DVT.
Wound care consultation sought along with infectious disease consultation after the patient developed some nausea believed to be possibly in relation to his cefepime/this later resolved and ID input recommended continuation of cefepime at present
dosing
He has had complete resolution of leukocytosis and return to baseline renal function. At this point in time his appetite is returning better. Recommendations from the infectious disease service is for continuation of a course of levofloxacin 750
mg for next 5 days blood cultures to date have remained negative and should be kept in mind the patient has been on empiric antibiotic coverage prior to presentation. Recommendation for ongoing wound care are enclosed in the transcribed discharge
[facility]
Discharge Plan
-
Patient Disposition: Group Home/SNF
Discharge Diagnosis/Procedures: Right lower extremity cellulitis
Leukocytosis resolved
morbid obesity with BMI of 44
Sleep apnea
Severe venous stasis bilateral lower extremity
Condition: Fair
Diet: As tolerated
Activity: As tolerated
Driving Restrictions: As prior to admission
Activity Restrictions/Additional Instructions:
Wound Care Instructions
R leg: Clean with saline, Xeroform, abd pads and divya daily and prn drainage. *Can add alginate over Xeroform for increased drainage.
Mineral oil to both legs and feet daily
Med wraps or resume previous compression daily
leg elevation when sitting
Fungal powder to skin folds and gluteal cleft after bathing daily and prn soilage.
Follow up at wound care center if able, call for an appointment.
Referrals:
Paty Mills CRNP [Family Provider] - in one to two weeks
Prescriptions:
New
levofloxacin 750 mg tablet
750 mg PO DAILY Qty: 5 0RF
Continued
ascorbic acid (vitamin C) [Vitamin C] 500 MG tablet
500 mg PO BID
ferrous sulfate [FeroSul] 325 MG tablet
325 mg PO BID
furosemide 20 MG tablet
20 mg PO BID
tamsulosin 0.4 MG capsule
0.4 mg PO QPM
glucosamine sulfate [Glucosamine] 500 mg Tablet
500 mg PO HS
aspirin 81 mg Tablet,Chewable
81 mg PO DAILY
lisinopril 40 mg Tablet
40 mg PO DAILY
cholecalciferol (vitamin D3) 25 mcg (1,000 unit) Tablet
25 mcg PO DAILY
tadalafil 5 mg tablet
5 mg PO DAILY PRN (Reason: ED)
Discharge Orders:
Discharge Patient (As Directed); Ordered 06/17/23
Ordered By: Tucker Murray
Discharge Date and Time
Print Language: SAMMARINESE
--- NOTE | 2023-06-17 14:05 | PTCARENOTE ---
Discharge order in for patient. Awaiting word on rehab placement. Ambulance will be arranged for picker tender helper.
[2023-06-17 15:18] VITALS: BP 114/59
--- NOTE | 2023-06-17 16:15 | CM ---
Jose from [email or web address] [phone] called to say he had a bed for pt.
As per MD patient ready for discharge.
Spoke with patient who said he felt he was not ready for dc and he wanted [facility].
Called Maddi at [facility] she said she had no male beds.
Informed patient he said he did not want to go to [facility] because he heard bad things about care.
Pt asked to call Son Layton [phone].. Called Layton son as requested. Layton said he could not help he was at work. He said he was not aware that dc was today.
Spoke with pt in room. He said he was not ready for dc.
IMM given explained.Signed IMM copy.Pt called Ave.
MD spoke with patient. cancelled discharge
Pt notified dc cancelled. Pt csaid he would call [facility] to Cancell appeal.
PLAN Probable dc to SNF when located
--- NOTE | 2023-06-17 17:21 | CM ---
Return call from Maddi at [facility] , per Maddi she anticipates they will have a male bed on Tuesday. She requests CM touches base with her on Tuesday morning. She also questioning if patient has own C-Pap that he will bring
with him or if one will need to be ordered for him. Update to CM.
[2023-06-17] MEDS: LOVENOX 40 MG SC (17:28)
[2023-06-17] MEDS: FLOMAX 0.400000000000000022 MG PO (17:28)
[2023-06-17 23:19] VITALS: BP 110/75
[2023-06-18 04:18] VITALS: BMI 44.2
[2023-06-18] MEDS: MAXIPIME 2000 MG IV (05:54)
[2023-06-18] MEDS: STERILE WATER FOR INJECTION 10 ML IV (05:55)
[2023-06-18 06:11] LABS: Blood Urea Nitrogen 22 mg/dl (9-20); Calcium 8.8 mg/dl (8.4-10.2); Carbon Dioxide 23 mmol/L (22-30); Chloride 102 mmol/L (98-107); Estimated Creatinine Clearance > 125 ml/min; Glucose 101 mg/dl (70-99); Potassium 4.3 mmol/L (3.5-5.1); Sodium 133 mmol/L (135-145); eGFR > 60.00
[2023-06-18 07:25] VITALS: BP 111/70
--- NOTE | 2023-06-18 09:27 | W.PN.HOSP.TC ---
Addendum entered and electronically signed by Tucker Murray MD 06/18/23 13:48:
Abnormal lab value sodium of clinical insignificant
Original Note:
Today's Communication/Plan
-
Continue wound care
PT/OT
Transition to Levaquin 750 mg p.o. daily x 5 days
Hopeful for discharge to home now since he does not want to go to rehab
Assessment / Plan
Assessment / Plan
72-year-old male past medical history of venous stasis, chronic right lower extremity wounds, HFpEF, hypertension, GERD, obesity, sleep apnea, presenting to the emergency room for evaluation of fever and chills since this morning. As per son his
right lower extremity was gotten worse with redness and swelling of the leg in the past 2 to 3 days. He follows with outpatient wound care and had a wound culture today which showed polymicrobial growth notable for Pseudomonas, Klebsiella, Serratia
and beta-hemolytic strep. Results are available on patient portal and do not show any significant resistance pattern with 3 organisms sensitive to ceftazidime, levofloxacin, meropenem and tobramycin.
Patient originally had a right lower extremity venous stasis ulcer wound for which she was hospitalized at [facility] last year. He also had recent right total knee replacement in January
Patient denies smoking or alcohol. He denies a history of prostatic hypertrophy but is on tamsulosin and was having urinary retention of postvoid residuals of over 450 on multiple more than 1 occasion overnight.
# Sepsis (fever, leukocytosis, tachycardia, hypotension) secondary to infected right lower extremity venous stasis ulcer/wound
-No longer tachycardic and BP is stabilized
-Leukocytosis now resolved from 20,000
-Wound culture today showed polymicrobial growth notable for Pseudomonas, Klebsiella, Serratia and beta-hemolytic strep
-Check blood cultures no growth to date
-IV fluids have been discontinued
-Hold Lasix
-Cefepime may be offering some side effects with nausea
-Check of on admission venous ultrasound ruled out DVT
-Wound care consulted
-Consult ID recommendations for high-dose cefepime to continue through June 17 and then transition to Levaquin for 5 days 750 mg daily
#Chronic venous stasis dermatitis
#History of varicose veins status post vein stripping of right lower extremity
-Hold Lasix
-Patient had venous and arterial imaging in June 2022
-Continue aspirin
-Outpatient follow-up with vascular
Chronic HFpEF
-Hold Lasix
-Can be resumed
Essential hypertension
-Hold lisinopril due to hypotension
-Lisinopril resumed/SBP improved
GERD
Obesity
Obstructive sleep apnea
BPH
-Continue tamsulosin
Chronic anemia
-Hemoglobin stable
-Continue ferrous sulfate
Full code
DVT prophylaxis�heparin
cardiac diet
Anticipated Discharge: 24 - 48 hours
Subjective/Interval History
-
Date of Service: June 18, 2023
Be discharged yesterday as he feels he will not get enough wound healing or wound care at facilities related to stay.
Objective Data
-
Labs:
Laboratory Results
06/18/23
04:34
Sodium 133 L
Potassium 4.3
Chloride 102
Carbon Dioxide 23
BUN 22 H
Creatinine 0.6 L
Glucose 101 H
Calcium 8.8
Vital Signs:
Vital Signs
Temp Pulse Resp BP Pulse Ox
98.0 F 79 20 111/70 97
06/18/23 07:25 06/18/23 07:25 06/18/23 07:25 06/18/23 07:25 06/18/23 07:25
I&O
06/17/23 06/18/23 06/19/23
06:59 06:59 06:59
Intake Total 970 / 970
Output Total 1925 / 1925 1250 / 1250
Balance -955 / -955 -1250 / -1250
Review of Systems
-
All other systems: Not reviewed unless documented
Physical Exam
-
General: Morbidly Obese
HEENT: Normocephalic
Cardiac: Regular Rhythm
GI: Soft
Skin: Rash and Ulcers
Psych: Calm
Data Reviewed
-
Total Time Spent with Patient (in minutes): 45
Labs: Labs Reviewed by me
[2023-06-18] MEDS: LASIX 20 MG PO (09:31)
[2023-06-18] MEDS: FEOSOL 325 MG PO ×2 (09:31→21:15)
[2023-06-18] MEDS: VITAMIN C 500 MG PO ×2 (09:32→21:15)
[2023-06-18] MEDS: LOW STRENGTH ASPIRIN 81 MG PO (09:32)
[2023-06-18] MEDS: VITAMIN D3 (cholecalciferol) 25 MCG PO (09:32)
[2023-06-18] MEDS: ZESTRIL 40 MG PO (09:32)
[2023-06-18] MEDS: HYDROPHOR 1 APPLIC TOPICAL (09:33)
[2023-06-18 15:12] VITALS: BP 106/55
[2023-06-18] MEDS: STERILE WATER FOR INJECTION IV ×3 (15:26→21:35)
[2023-06-18] MEDS: LOVENOX 40 MG SC (17:09)
[2023-06-18] MEDS: FLOMAX 0.400000000000000022 MG PO (17:09)
[2023-06-18] MEDS: LASIX PO (21:12)
[2023-06-18 23:32] VITALS: BP 117/64
[2023-06-19 06:01] VITALS: BMI 44.1
[2023-06-19 07:30] VITALS: BP 116/64
[2023-06-19] MEDS: FEOSOL 325 MG PO (09:04)
[2023-06-19] MEDS: VITAMIN C 500 MG PO (09:04)
[2023-06-19] MEDS: LASIX 20 MG PO (09:04)
[2023-06-19] MEDS: LEVAQUIN 750 MG PO (09:04)
[2023-06-19] MEDS: VITAMIN D3 (cholecalciferol) 25 MCG PO (09:05)
[2023-06-19] MEDS: LOW STRENGTH ASPIRIN 81 MG PO (09:05)
[2023-06-19] MEDS: ZESTRIL 40 MG PO (09:07)
--- NOTE | 2023-06-19 09:07 | W.DS.TRANS ---
DC Summary - Child Protective Services Specialist
-
Discharge Instructions:
Discharge Diagnosis/Procedures Right lower extremity cellulitis
Leukocytosis resolved
morbid obesity with BMI of 44
Sleep apnea
Severe venous stasis bilateral lower extremity
Diet As tolerated
Activity As tolerated
Driving Restrictions As prior to admission
Instructions:
Stand-Alone Forms:
Changes to Home Medications: Yes
Discharge Medications:
DC Medications w/original date entered in [facility]
ascorbic acid (vitamin C) 500 mg tablet (Vitamin C) 500 mg PO BID Supplement 02/21/18
ferrous sulfate 325 mg (65 mg iron) tablet (FeroSul) 325 mg PO BID Supplement 02/21/18
furosemide 20 mg tablet 20 mg PO BID Fluid retention/Swelling 02/21/18
tamsulosin 0.4 mg capsule 0.4 mg PO QPM Urinary issue 02/21/18
aspirin 81 mg chewable tablet 81 mg PO DAILY Blood clot prevention/tx 12/07/21
cholecalciferol (vitamin D3) 25 mcg (1,000 unit) tablet 25 mcg PO DAILY Supplement 12/07/21
glucosamine sulfate 500 mg tablet (Glucosamine) 500 mg PO HS Supplement 12/07/21
lisinopril 40 mg tablet 40 mg PO DAILY Blood pressure 12/07/21
tadalafil 5 mg tablet 5 mg PO DAILY PRN ED 06/14/23
levofloxacin 750 mg tablet 750 mg PO DAILY #5 tabs 06/17/23
Home Medication Changes
levofloxacin 750 mg tablet 750 mg PO DAILY #5 tabs 06/17/23
Pending Results: No
[2023-06-19 11:30] VITALS: BP 99/54
[2023-06-19] MEDS: HYDROPHOR 1 APPLIC TOPICAL (12:15)
--- NOTE | 2023-06-19 16:47 | CM ---
Patient with Dx sepsis. Room air. PT & OT 06/15 recommend skilled rehab.
Met with patient who decided he wanted to go home today. He requests resumption of [facility] for SN/PT/OT. IMM completed. His son will provide transport home today.
Spoke with [facility], [facility] (fax [phone]); referral placed in [facility] and they will resume service.
Plan home today with res[facility] of [facility].
== END 2023-06-19 15:29 | disposition home health service (06) | DRG 872 ==
LOC: 4 EAST ACU 19:53
PROVIDERS: ADMITTING PHYSICIAN Hospitalist; ATTENDING PHYSICIAN Internal Medicine; EMERGENCY PHYSICIAN Emergency Medicine; FAMILY PHYSICIAN Nurse Practitioner Adult Health; OTHER PHYSICIAN Internal Medicine Infectious Disease
PROC: 5A09357 Assistance with Respiratory Ventilation, Less than 24 Consecutive Hours, Continuous Positive Airway Pressure (ICD-10-PCS; 2023-06-15)
DX: A41.9 Sepsis, unspecified organism (principal); I50.32 Chronic diastolic (congestive) heart failure; Z68.41 Body mass index [BMI] 40.0-44.9, adult; L03.115 Cellulitis of right lower limb; I11.0 Hypertensive heart disease with heart failure; I73.9 Peripheral vascular disease, unspecified; K21.9 Gastro-esophageal reflux disease without esophagitis; E66.01 Morbid (severe) obesity due to excess calories; G47.33 Obstructive sleep apnea (adult) (pediatric); B96.5 Pseudomonas (aeruginosa) (mallei) (pseudomallei) as the cause of diseases classified elsewhere; B96.1 Klebsiella pneumoniae [K. pneumoniae] as the cause of diseases classified elsewhere; I87.2 Venous insufficiency (chronic) (peripheral); N40.0 Benign prostatic hyperplasia without lower urinary tract symptoms; D64.9 Anemia, unspecified; I89.0 Lymphedema, not elsewhere classified; I87.8 Other specified disorders of veins; I83.012 Varicose veins of right lower extremity with ulcer of calf
CPT/HCPCS: 80048; 80053; 81003; 83605; 85025; 85027; 86803; 87040; 87070; 93005; 93971; 96361; 96365; 97163; 97167; 97530; 99285

== ENCOUNTER 2023-12-28 20:57 | Inpatient (IN) | payer MEDICARE, OTHER, SELFPAY ==
[2023-12-28 17:49] VITALS: BP 128/94
[2023-12-28 19:10] VITALS: BMI 44.9
--- NOTE | 2023-12-28 19:24 | ED.SKININJ ---
HPI-Injury
General
Chief Complaint: Skin Problem
Source: patient and family
Exam Limitations: none
Time Seen by Provider: 12/28/23 17:57
Nursing documentation reviewed up to this point in time: agreed with
History of Present Illness-Injury
Is this injury a work related problem?: No
Is pt an associate of [facility]?: No
Initial Injury comments:
Patient to ED for eval of nonhealing wounds RLE. He had a 10 yr history of wound care to RLE wound, reports resolution 02/05. He had a knee replacement 02/06 and reports wound appeared again shortly after. Wound care ASSISTANT BASKETBALL COACH evaluates his wounds
weekly at home. SHe reports that he completed 2 courses of levequin followed by a course of cipro without improvment. He completed a course of doxycycline on 12/04. A wound culture was repeated on 12/20 after 2 weeks off antibiotics and according
to ASSISTANT BASKETBALL COACH the bacterial growth worsened. She consulted with ID and it was advised that patient come to ED for IV antibiotics. He denies fever/chills. reports increase in wound drainage. Brouoght to ED by family for eval.
Past History
Past History
ED Past Medical History: GERD, HTN, Other (Obesity, PNA, Cellulitis, Sleep Apea) and Other (Peripheral vascular disease, venous stasis ulcer)
ED Past Surgical History: Appendectomy and Tonsilectomy
Social History
Tobacco: Non-smoker
Alcohol: None
Drug: None
Personal:
Living: with family
Employment: Employed
Family History
Family History: Other (Noncontributory)
Review of Systems
Review of Systems
Allergies reviewed?: Yes
All Other Systems: ROS reviewed and negative except as documented in HPI and ROS
Constitutional: Reports no symptoms
Respiratory: Reports no symptoms
Cardiac: Reports no symptoms
ABD/GI: Reports no symptoms
Musculoskeletal: Reports no symptoms
Skin: Reports other (Nonhealing stasis ulcers RLE with surrunding erythema, increased drainage.)
Neurological: Reports no symptoms
Psychiatric: Reports no symptoms
Phy Exam
General Physical Exam
General Presentation: well appearing and no apparent distress
General age: appears stated age
General Skin: warm and dry
General Habitus: obese
General Mental: alert
Musculoskeletal Exam
Musculoskeletal Exam: full ROM
Skin Exam
Skin Exam: warm/dry and other (Nonhealing stasis ulcers to RLE with surrounding erythema, increased drainage.)
Psychiatric Exam
Psychiatric Exam: normal mood/affect
Course
Orders/Labs/Results
Orders:
Orders
12/28/23 Breakfast
Cholesterol Lowering
At Your Request: Full Participation
Cholesterol Lowering: Sodium, 2 Gram
12/28/23 18:32
Tib/Fib, Right 2 View [CR Leg Tibia/fibula Right 2 Vw] Urgent
Comment:
Reason For Exam: cellulitis, wounds
12/28/23 19:23
Cefepime HCl [Maxipime] 2,000 mg IV NOW STA
12/28/23 20:26
Admit/Transfer Patient As Directed
Co-Sign Provider:
Level of Care: Inpatient admission
Assign to:: Medical/Surgical
Physician / Group: [email or web address]
Diagnosis: Rt Sergey cellulitis failed OP ABx
Reason for Hospitalization: Rt Sergey cellulitis failed OP ABx
Expected length of stay greater than two midnights?: Yes
ELOS- Estimated Length of Stay in days: 5
I certify the patient meets the requirements for IP care: Yes
12/28/23 20:29
Code Status As Directed
Resuscitation Status: Full Code
12/28/23 21:01
Complete Blood Count/With Diff Urgent
Comprehensive Metabolic Panel Urgent
Blood Culture Urgent
JOSUÉ Source: Blood/Venous
Specimen Description:
Wound Culture [Wound/Abscess/Other Culture] Urgent
JOSUÉ Source: Leg
Specimen Description: Right
Date Specimen was Collected: 12/28/23
Time Specimen was Collected: 18:36
12/28/23 21:31
Acetaminophen [Tylenol] 650 mg PO Q4HPRN PRN
Bisacodyl [Dulcolax] 10 mg RECTAL Q45TEEH PRN
Docusate W/Senna [Senokot-S] 1 tablet PO BIDPRN PRN
Polyethylene Glycol Powder [Miralax] 17 grams PO DAILYPRN PRN
tadalafil 5 mg PO DAILYPRN PRN
12/28/23 21:31
Activity As Directed
Activity Level: With Assistance
Intake/ Output As Directed
Frequency: Per unit guidelines
Vital Signs As Directed
Frequency: Per unit guidelines
Weight As Directed
Frequency: Daily
DX Deep Vein Thrombosis Video Routine
12/28/23 22:00
Docusate Sodium [Colace] 100 mg PO HS
Tamsulosin [Flomax] 0.4 mg PO HS
12/29/23 06:00
Cefepime HCl [Maxipime] 2,000 mg IV Q8H
12/29/23 06:31
Basic Metabolic Panel IN AM
Complete Blood Count/No Diff IN AM
12/29/23 08:00
Ascorbic Acid [Vitamin C] 500 mg PO BID
Aspirin Chewable [Low Strength Aspirin] 81 mg PO DAILY
Cholecalciferol (Vitamin D3) [VITAMIN D3 (cholecalciferol)] 25 mcg PO DAILY
Cyanocobalamin [Vitamin B-12] 1,000 mcg PO DAILY
Ferrous Sulfate [Feosol] 325 mg PO BID
Furosemide [Lasix] 20 mg PO BID AT 0800,1600
Heparin 5,000 units SC Q12
Lisinopril [Zestril] 20 mg PO DAILY
Vital Signs
Initial and Last Documented VS:
Initial Vital Signs
Temp Pulse Resp BP Pulse Ox
98.4 F 94 18 128/94 98
12/28/23 17:49 12/28/23 17:49 12/28/23 17:49 12/28/23 17:49 12/28/23 17:49
Last Documented Vital Signs
Temp Pulse Resp BP Pulse Ox
97.8 F 78 16 134/69 96
12/30/23 15:50 12/30/23 15:50 12/30/23 15:50 12/30/23 15:50 12/30/23 15:50
MDM/Problems Addressed
Differential Diagnosis Includes:
Patient to ED for eval of nonhealing stasis ulcers RLE. INcreasing erythema and drainage. He has been treated at home by wound care ASSISTANT BASKETBALL COACH without improvement. Wound culture 12/20 reveals pseudomonas, staph, enterococcus faecalis. COpy of ASSISTANT BASKETBALL COACH note
and wound culture scanned into chart. Culture repeated tonight in ED WIll place on Cefipime IV and admit to hospitalist.
*Radiology
Radiology exam reviewed: radiology read reviewed
*Pulse Oximetry
Patient hypoxic: no
*Critical Care Note
Total Time (30-74mins, 75-104mins- exclusive of procedures): Not Applicable
ED Attending Note
-
Portions of this chart may have been created with voice recognition software.� Occasional wrong word or��sound alike� substitutions may have occurred due to the inherent limitations of voice recognition software.
Discharge Plan
Departure
Patient Disposition: Admit
Date of Disposition: 12/28/23
Time of Disposition: 19:34
Presentation/result/management discussed w/ accepting MD/DO: Hospitalist
Patient with high blood pressure during this ER visit?: No
Condition: Fair
Covid-19: Not Applicable
Discharge Problem:
Cellulitis of leg, right
Interventions
Interventions:
*Risk Screen - Suicide Last Done: 12/28/23 17:49
*General Assessment Last Done: 12/28/23 19:10
*Neglect/Abuse Screening Last Done: 12/28/23 17:49
ED- Fall Risk Assessment Last Done: 12/28/23 19:10
*ED COVID-19 Vaccine History Last Done: 12/28/23 22:13
*Nursing Disposition Last Done: 12/28/23 21:56
ED-Skin Assessment Last Done: 12/28/23 19:11
Discharge Date and Time
Discharge Date/Time: 12/28/23 21:57
--- NOTE | 2023-12-28 20:20 | HPS.HSE ---
Family Physician
-
Family Physician: Paty Mills
Chief Complaint
-
failed OP ABx for Rt Sergey cellultis
History of Present Illness
HPI
73M Morbidly obese/BMI 44 , HX Rt Sergey cellulitis , HX nonhealing wounds RLE for 10 yr then eports resolution 02/05. - following knee replacement 02/06 and reports wound appeared again shortly after.
- f/u by Wound care CHRISTIAN SCIENCE NURSE weekly at home.
- reports that he completed 2 courses of levequin followed by a course of cipro without improvment.
- completed a course of doxycycline on 12/04.
A wound culture was repeated on 12/20 after 2 weeks off antibiotics and according to CHRISTIAN SCIENCE NURSE the bacterial growth worsened. She consulted with ID and it was advised that patient come to ED for IV antibiotics.
ROS:
denies fever/chills. reports increase in wound drainage. Brouoght to ED by family for eval.
Medical History
Past Medical History
Past Medical History: Reports Other (venous stasis, chronic right lower extremity wounds, HFpEF, hypertension, GERD, obesity, sleep apnea, )
Past Surgical History: Reports None
Social History
Tobacco: Non-smoker
Alcohol: None
Drug: None
Family History
Family History: Not pertinent
Allergies / Home Medications
Allergies reflects when Allergies were last updated in [facility].
Home Medications with original date entered in [facility]
Allergy/Medication List:
Allergies
Allergy/AdvReac Type Severity Reaction Status Date / Time
No Known Allergies Allergy Verified 02/27/18 17:28
Home Medications
ascorbic acid (vitamin C) 500 mg tablet (Vitamin C) 500 mg PO BID Supplement 02/21/18
ferrous sulfate 325 mg (65 mg iron) tablet (FeroSul) 325 mg PO BID Supplement 02/21/18
furosemide 20 mg tablet 20 mg PO BID Fluid retention/Swelling 02/21/18
tamsulosin 0.4 mg capsule 0.4 mg PO QPM Urinary issue 02/21/18
aspirin 81 mg chewable tablet 81 mg PO DAILY Blood clot prevention/tx 12/07/21
cholecalciferol (vitamin D3) 25 mcg (1,000 unit) tablet 25 mcg PO DAILY Supplement 12/07/21
glucosamine sulfate 500 mg tablet (Glucosamine) 500 mg PO HS Supplement 12/07/21
lisinopril 40 mg tablet 40 mg PO DAILY Blood pressure 12/07/21
tadalafil 5 mg tablet 5 mg PO DAILY PRN ED 06/14/23
Review of Systems
-
History Source: Patient
A 12 point ROS was completed and negative except as noted: Yes
Constitutional: Reports No Symptoms
EENT: Reports No Symptoms
Respiratory: Reports No Symptoms
Cardiac: Reports No Symptoms
Abdomen/GI: Reports No Symptoms
: Reports No Symptoms
Musculoskeletal: Reports No Symptoms
Skin: Reports See HPI
Neurological: Reports No Symptoms
Endocrine: Reports No Symptoms
Hematologic/Lymphatic: Reports No Symptoms
Psych: Reports No Symptoms
Physical Exam
Vital Signs
Vital Signs
Temp Pulse Resp BP Pulse Ox
98.4 F 94 18 128/94 98
12/28/23 17:49 12/28/23 17:49 12/28/23 17:49 12/28/23 17:49 12/28/23 17:49
Physical Exam
General: Well Developed, Well Nourished and No Apparent Distress
HEENT: NormoCephalic, Moist mucous membranes and Atraumatic
Respiratory: Clear
Cardiac: S1/S2 and Regular Rhythm; No Murmur or Rub
GI: Soft, Non Tender, Non Distended and Normal Bowel Sounds; No Organomegaly
Rectal: Deferred by Provider
Musculoskeletal: No Clubbing, No Cyanosis and No Edema
Skin: Other (right lower extremity wounds, erythema and swelling ); No Rash
Neuro: Nonfocal/grossly intact
Data Reviewed
-
Diagnostic Radiology: Report Reviewed by me
Lab Data: Labs Reviewed by me
Old Records: Reviewed
Impression/Plan
-
Vital Signs
Temp Pulse Resp BP Pulse Ox
98.4 F 94 18 128/94 98
12/28/23 17:49 12/28/23 17:49 12/28/23 17:49 12/28/23 17:49 12/28/23 17:49
Data: pending
Prior WD Cx: Polymicrobic ( Pseudomonas, MSSA, Gr B strep, GNR )
Tibia/fibula Right 2 Vw
1. Severe diffuse soft tissue swelling and subcutaneous edema throughout the right lower leg consistent with SEVERE CELLULITIS.
2. No radiographic evidence for acute osteomyelitis or soft tissue emphysema.
3. Multiple small soft tissue calcifications.
4. Right total knee arthroplasty in place without evidence for hardware loosening.
5. Large calcaneal enthesophytes.
6. 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
Last hospitalist admission:
Date of Admission: 06/14/23 - Date of Discharge: 06/17/23
PDXS:
Right lower extremity cellulitis
Leukocytosis resolved
morbid obesity with BMI of 44
Sleep apnea
Severe venous stasis bilateral lower extremity
ASSESSMENT & PLAN
Pending Rx reconciliation
Rt Sergey recurrent cellulitis : failed OP ABx ( Doxycycline, then 2 courses of LVQ , then Cipro , followed by Doxy)
07/15/22 Prior WD Cx POS Polymicrobic ( Pseudomonas, MSSA, Gr B strep, GNR )
HX Chronic venous stasis dermatitis
HX varicose veins status post vein stripping of right lower extremity
- Empiric IV CFP hi dose due to BMI 44
- ID consult
Chronic HFpEF: clinically stable
- c/w YOUTH SPECIALIST Lasix
Essential hypertension
- on lisinopril
BPH
-Continue tamsulosin
Chronic anemia
-Hemoglobin stable
-Continue ferrous sulfate
GERD
Morbid Obesity BMI 44
MEG
DVT Px: SQH
Full code
IP MS
[2023-12-28 21:04] VITALS: BP 131/82
[2023-12-28 21:14] LABS: % Basophils 0.6 % (0-2); % Eosinophils 6.1 % (0-6); % Immature Granulocytes 0.1 % (0-0.5); % Lymphocytes 20.1 % (20.5-51.1); % Monocytes 8.4 % (1.7-9.3); % Neutrophils 64.7 % (42.2-75.2); Absolute Eosinophils 0.4 10^3/uL (0-0.7); Absolute Lymphocytes 1.3 10^3/uL (1.2-3.4); Absolute Monocytes 0.6 10^3/uL (0.1-0.6); Absolute Neutrophils 4.3 10^3/uL (1.4-6.5); Hematocrit 39.1 % (39.0-52.0); Hemoglobin 12.2 g/dL (13.0-18.0); Mean Corp Hgb Conc. 31.2 g/dL (33.0-37.0); Mean Corpuscular Hgb 26.6 pg (27.0-31.0); Mean Corpuscular Volume 85.4 fL (80.0-94.0); Mean Platelet Volume 9.5 fL (7.4-10.4); Nucleated Red Blood Cells % 0 % (-); Platelet Count 173 10^3/uL (130-400); Red Blood Cell Count 4.58 10^6/uL (4.70-6.10); Red Cell Dist. Width 14.9 % (11.5-14.5); White Blood Cell Count 6.7 10^3/uL (4.8-10.8)
[2023-12-28] MEDS: MAXIPIME 2000 MG IV (21:15)
[2023-12-28 21:26] LABS: ALT (SGPT) 15 U/L (0-50); AST (SGOT) 17 U/L (17-59); Albumin 4.1 g/dl (3.5-5.0); Alkaline Phosphatase 67 U/L (38-126); Blood Urea Nitrogen 31 mg/dl (9-20); Calcium 9.2 mg/dl (8.4-10.2); Carbon Dioxide 30 mmol/L (22-30); Chloride 103 mmol/L (98-107); Estimated Creatinine Clearance > 125 ml/min; Glucose 102 mg/dl (70-99); Potassium 4.7 mmol/L (3.5-5.1); Sodium 142 mmol/L (135-145); Total Bilirubin 0.3 mg/dl (0.2-1.3); Total Protein 6.7 g/dl (6.3-8.2); eGFR > 60.00
[2023-12-28 22:10] VITALS: BP 146/90; BMI 44.6
[2023-12-28] MEDS: TYLENOL 650 MG PO (23:04)
[2023-12-28] MEDS: FLOMAX 0.4 MG PO (23:04)
[2023-12-28] MEDS: COLACE PO (23:05)
--- NOTE | 2023-12-28 23:30 | PTCARENOTE ---
Pt arrived to [facility] and ambulated to bed with walker. Pt oriented to unit. Assessment and admission complete. Wound care done. Pt states no further needs at this time.
[2023-12-29] MEDS: STERILE WATER FOR INJECTION 10 ML IV ×3 (05:36→21:48)
[2023-12-29] MEDS: MAXIPIME 2000 MG IV ×3 (05:36→21:48)
[2023-12-29 06:00] VITALS: BMI 43.7
[2023-12-29 07:19] LABS: Hematocrit 37.1 % (39.0-52.0); Hemoglobin 11.6 g/dL (13.0-18.0); Mean Corp Hgb Conc. 31.3 g/dL (33.0-37.0); Mean Corpuscular Hgb 27.3 pg (27.0-31.0); Mean Corpuscular Volume 87.3 fL (80.0-94.0); Mean Platelet Volume 10.1 fL (7.4-10.4); Platelet Count 158 10^3/uL (130-400); Red Blood Cell Count 4.25 10^6/uL (4.70-6.10); Red Cell Dist. Width 14.9 % (11.5-14.5); White Blood Cell Count 5.1 10^3/uL (4.8-10.8)
[2023-12-29 07:25] LABS: Blood Urea Nitrogen 25 mg/dl (9-20); Carbon Dioxide 28 mmol/L (22-30); Chloride 105 mmol/L (98-107); Estimated Creatinine Clearance > 125 ml/min; Glucose 108 mg/dl (70-99); Potassium 4.3 mmol/L (3.5-5.1); Sodium 143 mmol/L (135-145); eGFR > 60.00
[2023-12-29 07:34] VITALS: BP 150/82
[2023-12-29] MEDS: LOW STRENGTH ASPIRIN 81 MG PO (08:42)
[2023-12-29] MEDS: FEOSOL 325 MG PO ×2 (08:42→21:49)
[2023-12-29] MEDS: VITAMIN B-12 1000 MCG PO (08:42)
[2023-12-29] MEDS: VITAMIN C 500 MG PO ×2 (08:42→21:49)
[2023-12-29] MEDS: VITAMIN D3 (cholecalciferol) 25 MCG PO (08:42)
[2023-12-29] MEDS: LASIX 20 MG PO ×2 (08:43→16:46)
[2023-12-29] MEDS: HEPARIN 5000 UNITS SC ×2 (08:43→21:48)
[2023-12-29] MEDS: ZESTRIL 20 MG PO (08:43)
--- NOTE | 2023-12-29 10:28 | WOUNDNOTE ---
WON RN note: Patient admitted with RLE cellulitis.
See H&P for complete history. Lives at home with Son and family.
PMH: Obesity- 100lb weight loss for knee surgery, HTN, chronic R lower leg venous stasis ulcer, RLE vein stripping, appendectomy, lymphedema. R knee replacement 2022.
Wound Location and type/assessment: Patient known to service, last seen 12/09/21 for same R leg venous stasis ulcer. Compared to last seen R leg wounds now a larger cluster but still with clean base, less edema and redness of leg. Patient reports
wounds have healed in past but re opened after surgery. Surgeon didn't want him to use compression post surgery, so knee wouldn't swell. + B/L pedal pulse palpable, heels intact. Very dry skin surrounding wound on lower leg. Patient states he has
Visiting PACKER OPERATOR AUTOMATIC come to home and does Coban double layer wrap to R leg knee high, 2- 3 times a week. Moisturizes legs with Eucerin. Has recliner chair that elevates legs above level of heart and uses a lymphedema pump for 1 hr in evening. Ambulates self
using walker in home. States he lost 100lbs last year so that he can have his R knee surgery and is attempting to loose 80 more lbs. His last January but lives at in-law suite of Son's home. Family can help patient as needed.
Patient ambulated from BR, Sacrum is intact. Patient denies any more issues with MASD in skin folds.
Appetite: good. Dietary on consult.
Pressure redistribution devices in place: Accumax, turns self in bed. ADL with walker.
Plan: RLE dressing changed using adaptic, abd pad and kerlix, martha wrap knee high. Applied A&D ointment to both legs and feet, will order mineral oil to start tomorrow. Dr. Bonilla made aware of the above, plans on seeing patient with resident later
today. Will confirm orders with hospitalist and updated JOHN Jensen.
Care plan to be updated and will follow as needed.
Note to case management requested for discharge: VN to continue for wound care.
Patient to follow up at wound care center upon discharge if not healing.
--- NOTE | 2023-12-29 10:34 | CON.ID ---
Consultation
-
Date/Time Consultation Requested: December 29, 2023 0636
Date/Time Consultation Performed: December 29, 2023 1035
Requesting Provider: Dr. Marilou Banegas
Performing Provider: Dr. Kiki Swanson
Reason for Consultation: Cellulitis
Chief Complaint / Past History
Chief Complaint
Right leg wounds with bacteria
History of Present Illness
Jarret Jack is a 73-year-old man past medical history of lower extremity venous stasis with ulcerations, chronic right lower extremity lymphedema, right lower extremity venous stasis wounds which eventually healed with compression. In January
2022, he underwent right total knee replacement. However he was instructed not to use compression post surgery; the venous stasis wounds recurred since March 2023. He has home wound nurse who manages his leg. He is compliant with
compression pumps. In September wound culture grew Pseudomonas and Enterococcus faecalis, treated with levofloxacin. November 07 repeat wound culture grew Pseudomonas and MSSA, again treated with levofloxacin. November 22 again wound sent for
culture positive for Pseudomonas, MSSA, strep, treated with Cipro, doxycycline. Repeat wound culture December 20 showed Pseudomonas Staph aureus and Enterococcus faecalis. Patient therefore recommended to come to the ER due to these persistent
organisms. Patient reports though leg wounds are getting better. However he cannot have left knee replacement until infection is cleared. No fevers or chills.
Past History
Additional Past Medical History:
GERD
Hypertension
HFpEF
Obesity (current BMI = 45)
Sleep apnea
Peripheral vascular disease
Venous stasis bilateral lower extremities
Chronic right lower extremity lymphedema
BPH
R TKR
Appendectomy
Vein surgery
T&A
Allergy History:
No Known Allergies Allergy (Verified 12/28/23 17:49)
Medications Reviewed: Yes
Current Antibiotics:
cefepime 2g IV q8 (d1)
Social History
Tobacco: Non-Smoker
Alcohol: None
Drug: None
Personal:
Living: With Family
Employment: Not Employed
Family History
Family History: Not Pertinent
Review of Systems
Review of Systems
General: Negative Fever, Chills or Change in Appetite
Cardiovascular: Negative Chest Pain or Edema
Respiratory: Negative Dyspnea or Cough
Gasteroenterology: Negative Nausea, Vomiting or Diarrhea
Genital / Urological: Negative Dysuria or Flank Pain
Endocrine: Negative Weakness
Neurological: Negative Dizziness
All systems: All other systems were reviewed and were negative
Vital Signs
Temp Pulse Resp BP Pulse Ox
98.1 F 76 16 150/82 97
12/29/23 07:34 12/29/23 08:43 12/29/23 07:34 12/29/23 08:43 12/29/23 07:34
Physical Exam
Physical Exam
Constitutional: No Acute Distress, Comfortable and Obese
Eyes: No Conjunctival Hemorrhage and Sclera Anicteric
Cardiovascular: Regular Rate and S1/S2
Pulmonary: Clear
Gastrointestinal: Soft, Non Tender, Non Distended and Normal Bowel Sounds
Extremities: Edema (lymphedema RLE>LLE) and Venous Insufficiency
Wound: Other (Reviewed today's wound photos: RLE along lateral leg to calf, with venous stasis ulcers with red granulating base, there is epitheliazation over wounds, no drainage.)
Neurological: AO x 3
Lab / Diagnostic Study Results
12/29/23 06:31
12/29/23 06:31
Abs Immat Gran (auto) 0.0 10^3/uL (0-0.05) 12/28/23 21:01
Absolute Neuts (auto) 4.3 10^3/uL (1.4-6.5) 12/28/23 21:01
Absolute Lymphs (auto) 1.3 10^3/uL (1.2-3.4) 12/28/23 21:01
Absolute Monos (auto) 0.6 10^3/uL (0.1-0.6) 12/28/23 21:01
Absolute Basos (auto) 0.0 10^3/uL (0-0.2) 12/28/23 21:01
Immature Gran % 0.1 % (0-0.5) 12/28/23 21:01
Neutrophils % 64.7 % (42.2-75.2) 12/28/23 21:
Lymphocytes % 20.1 % (20.5-51.1) L 12/28/23 21:01
Monocytes % 8.4 % (1.7-9.3) 12/28/23 21:
Eosinophils % 6.1 % (0-6) H 12/28/23 21:
Basophils % 0.6 % (0-2) 12/28/23 21:01
Microbiology Results
Micro:
12/28/23 21: Wound Culture - Pending
Leg - Right Gram Stain - Preliminary
12/28/23 21: Blood Culture - Pending
Blood/Venous
12/28/23 Tib/fib XRAY: Severe diffuse soft tissue swelling and subcutaneous edema throughout the right lower leg consistent with SEVERE CELLULITIS. No radiographic evidence for acute osteomyelitis or soft tissue emphysema. Multiple small soft
tissue calcifications. Right total knee arthroplasty in place without evidence for hardware loosening.
Assessment / Plan
# Chronic venous stasis ulcers RLE
# RLE lymphedema
- Venous stasis wounds without signs of infection.
In fact, patient states wounds are improving.
- Pt received several courses of antibiotics outpatient based on wound cultures.
-PLEASE DO NOT KEEP SWABBING WOUNDS FOR CULTURES - CANNOT USE TEST OF CURE.
WOUNDS WILL ALWAYS BE COLONIZED WITH POLYMICROBIAL ORGANISMS.
TREAT ONLY IF SIGNS AND SYMPTOMS OF INFECTION (AND NOT BY CULTURE DATA ALONE).
- Continue compression and wound care.
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
GERD
Hypertension
HFpEF
Obesity (current BMI = 45)
Sleep apnea
Peripheral vascular disease
Venous stasis bilateral lower extremities
Chronic right lower extremity lymphedema
BPH
R TKR
Appendectomy
Vein surgery
T&A
--- NOTE | 2023-12-29 11:22 | W.PN.HOSP.TC ---
Today's Communication/Plan
-
f/w ID recommendations
Wound care
Monitor temp curve
Assessment / Plan
Assessment / Plan
Physical Exam
General: Well Developed, Well Nourished and No Apparent Distress
HEENT: NormoCephalic, Moist mucous membranes and Atraumatic
Respiratory: Clear
Cardiac: S1/S2 and Regular Rhythm; No Murmur or Rub
GI: Soft, Non Tender, Non Distended and Normal Bowel Sounds; No Organomegaly
Rectal: Deferred by Provider
Musculoskeletal: No Clubbing, No Cyanosis and No Edema
Skin: Other (right lower extremity wounds, erythema and swelling ); No Rash
Neuro: Nonfocal/grossly intact
Rt Sergey non healing venous ulcers
Pt reported he was treated for cellulitis but failed OP ABx ( Doxycycline, then 2 courses of LVQ , then Cipro , followed by Doxy)
HX Chronic venous stasis dermatitis
HX varicose veins status post vein stripping of right lower extremity
- Given empiric IV ABx.
- ID consult appreciated
c/w wound care
No Leukocytosis, no fevers.
#Chronic HFpEF: clinically stable
- c/w CAKE KNOCKER Lasix
#Essential hypertension
- on lisinopril
#BPH
-Continue tamsulosin
# Obstructive sleep apnea/Chronic pulmonary hypertension
#Chronic anemia
-Hemoglobin stable
-Continue ferrous sulfate
#GERD
#Morbid Obesity BMI 44
MEG
Total time spent to see the patient, examine the patient, review data and lab results, discuss treatment plan with patient, nursing staff around 55 minutes
Anticipated Discharge: Within 24 hours
Subjective/Interval History
-
Date of Service: December 29, 2023
No pain in leg
No fever
No chest pain
No sob
Objective Data
-
Labs:
Laboratory Results
12/29/23
06:31
WBC 5.1
Hgb 11.6 L
Hct 37.1 L
Plt Count 158
Sodium 143
Potassium 4.3
Chloride 105
Carbon Dioxide 28
BUN 25 H
Creatinine 0.5 L
Glucose 108 H
Calcium 9.0
Vital Signs:
Vital Signs
Temp Pulse Resp BP Pulse Ox
98.1 F 76 16 150/82 97
12/29/23 07:34 12/29/23 08:43 12/29/23 07:34 12/29/23 08:43 12/29/23 07:34
I&O
12/28/23 12/29/23 12/30/23
06:59 06:59 06:59
Intake Total 480 / 480
Output Total 600 / 600
Balance -120 / -120
--- NOTE | 2023-12-29 12:45 | CM ---
Addendum entered by Cara Darden 12/29/23 13:01:
Home Health Referral sent via [facility] to:
[facility], [facility]; [address]; [place] [address]; ;
Original Note:
Met with patient at bedside; initial assessment completed
Pharmacy verified: [facility] @ [address], [place]
Patient reported he lives in a one floor in-law suite ([facility]); ramp to enter; bathroom has walk-in shower with grab bars/seat; raised toilet
PLOF: patient reported he is independent with ADLs; ambulates with rolling walker; drives
DME: Let compression Pump; CPAP but does not use it; Lift Recliner
Home Wound Care with [facility]; will resume services when discharged
Plans to transport self home via his car
Plan: anticipate discharge to home when medically stable; CM will monitor for additional needs/services
[2023-12-29 15:00] VITALS: BP 112/62; PULSE 86
[2023-12-29 15:03] VITALS: BP 112/62; PULSE 86
[2023-12-29 15:54] VITALS: BP 114/74
[2023-12-29] MEDS: COLACE PO (21:49)
[2023-12-29] MEDS: FLOMAX 0.4 MG PO (21:49)
[2023-12-29 23:15] VITALS: BP 147/76
[2023-12-29] MEDS: TYLENOL 650 MG PO (23:41)
[2023-12-30 06:00] VITALS: BMI 43.6
[2023-12-30] MEDS: STERILE WATER FOR INJECTION 10 ML IV ×3 (06:07→22:44)
[2023-12-30] MEDS: MAXIPIME 2000 MG IV ×3 (06:08→22:45)
[2023-12-30 07:44] VITALS: BP 128/69
[2023-12-30] MEDS: VITAMIN C 500 MG PO ×2 (08:31→22:43)
[2023-12-30] MEDS: LASIX 20 MG PO ×2 (08:31→15:39)
[2023-12-30] MEDS: LOW STRENGTH ASPIRIN 81 MG PO (08:31)
[2023-12-30] MEDS: VITAMIN D3 (cholecalciferol) 25 MCG PO (08:31)
[2023-12-30] MEDS: HEPARIN 5000 UNITS SC ×2 (08:31→22:43)
[2023-12-30] MEDS: VITAMIN B-12 1000 MCG PO (08:33)
[2023-12-30] MEDS: ZESTRIL 20 MG PO (08:33)
[2023-12-30] MEDS: HYDROPHOR 1 APPLIC TOPICAL (08:33)
[2023-12-30] MEDS: FEOSOL 325 MG PO ×2 (08:33→22:46)
--- NOTE | 2023-12-30 09:11 | W.PN.HOSP.TC ---
Today's Communication/Plan
-
# Low grade temperature
Monitor for now
if fever, do urine test, blood culture
Assessment / Plan
Assessment / Plan
Physical Exam
General: Well Developed, Well Nourished and No Apparent Distress
HEENT: NormoCephalic, Moist mucous membranes and Atraumatic
Respiratory: Clear
Cardiac: S1/S2 and Regular Rhythm; No Murmur or Rub
GI: Soft, Non Tender, Non Distended and Normal Bowel Sounds; No Organomegaly
Rectal: No bleeding
Musculoskeletal: No Clubbing, No Cyanosis and No Edema
Skin: Other (right lower extremity wounds, erythema and swelling ); No Rash
Neuro: Nonfocal/grossly intact
Psych: calm, no agitation
Rt Sergey non healing venous ulcers
Pt reported he was treated for cellulitis but failed OP ABx ( Doxycycline, then 2 courses of LVQ , then Cipro , followed by Doxy)
HX Chronic venous stasis dermatitis
HX varicose veins status post vein stripping of right lower extremity
- Given empiric IV ABx. He was evaluated by ID, no active infection, c/w wound care
- ID consult appreciated
c/w wound care
No Leukocytosis, no fevers.
# Low grade temperature
Monitor for now
if fever, do urine test, blood culture
#Chronic HFpEF: clinically stable
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
#Essential hypertension
- on lisinopril
#BPH
-Continue tamsulosin
# Obstructive sleep apnea/Chronic pulmonary hypertension
#Chronic anemia
-Hemoglobin stable
-Continue ferrous sulfate
#GERD
#Morbid Obesity BMI 44
# MEG
Total time spent to see the patient, examine the patient, review data and lab results, discuss treatment plan with patient, nursing staff around 55 minutes
Anticipated Discharge: Within 24 hours
Subjective/Interval History
-
Date of Service: December 30, 2023
No chest pain
No sob
Objective Data
-
Vital Signs:
Vital Signs
Temp Pulse Resp BP Pulse Ox
99.6 F 86 16 128/69 96
12/30/23 07:44 12/30/23 07:44 12/30/23 07:44 12/30/23 07:44 12/30/23 07:44
I&O
12/29/23 12/30/23 12/31/23
06:59 06:59 06:59
Intake Total 2340 / 2340
Output Total 1700 / 1700
Balance 640 / 640
[2023-12-30] MEDS: ULTRAM 50 MG PO ×2 (12:43→23:34)
[2023-12-30 15:50] VITALS: BP 134/69
[2023-12-30] MEDS: FLOMAX 0.4 MG PO (22:43)
[2023-12-30] MEDS: COLACE 100 MG PO (22:43)
[2023-12-30 23:30] VITALS: BP 133/73
[2023-12-31] MEDS: ULTRAM 50 MG PO (05:34)
[2023-12-31] MEDS: MAXIPIME 2000 MG IV (06:31)
[2023-12-31] MEDS: STERILE WATER FOR INJECTION 10 ML IV (06:32)
[2023-12-31 07:58] VITALS: BP 106/67
[2023-12-31] MEDS: VITAMIN B-12 1000 MCG PO (08:12)
[2023-12-31] MEDS: HEPARIN 5000 UNITS SC (08:12)
[2023-12-31] MEDS: VITAMIN C 500 MG PO (08:12)
[2023-12-31] MEDS: FEOSOL 325 MG PO (08:12)
[2023-12-31] MEDS: ZESTRIL 20 MG PO (08:12)
[2023-12-31] MEDS: LASIX 20 MG PO (08:12)
[2023-12-31] MEDS: LOW STRENGTH ASPIRIN 81 MG PO (08:12)
[2023-12-31] MEDS: VITAMIN D3 (cholecalciferol) 25 MCG PO (08:12)
[2023-12-31] MEDS: HYDROPHOR 1 APPLIC TOPICAL (08:13)
--- NOTE | 2023-12-31 10:55 | W.PN.HOSP.TC ---
Today's Communication/Plan
-
dc
Assessment / Plan
Assessment / Plan
Physical Exam
General: Well Developed, Well Nourished and No Apparent Distress
HEENT: NormoCephalic, Moist mucous membranes and Atraumatic
Respiratory: Clear
Cardiac: S1/S2 and Regular Rhythm; No Murmur or Rub
GI: Soft, Non Tender, Non Distended and Normal Bowel Sounds; No Organomegaly
Rectal: No bleeding
Musculoskeletal: No Clubbing, No Cyanosis and No Edema
Skin: Other (right lower extremity wounds, erythema and swelling ); No Rash
Neuro: Nonfocal/grossly intact
Psych: calm, no agitation
Rt Sergey non healing venous ulcers
Pt reported he was treated for cellulitis but failed OP ABx ( Doxycycline, then 2 courses of LVQ , then Cipro , followed by Doxy)
HX Chronic venous stasis dermatitis
HX varicose veins status post vein stripping of right lower extremity
- Given empiric IV ABx. He was evaluated by ID, no active infection, c/w wound care
- ID consult appreciated
c/w wound care
No Leukocytosis, no fevers.
# Low grade temperature
no recurrence, Temp nnormal in last 24 hours.
#Chronic HFpEF: clinically stable
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
#Essential hypertension
- on lisinopril
#BPH
-Continue tamsulosin
# Obstructive sleep apnea/Chronic pulmonary hypertension
#Chronic anemia
-Hemoglobin stable
-Continue ferrous sulfate
#GERD
#Morbid Obesity BMI 44
# MEG
Total discharge time spent to see the patient, examine the patient, review data and lab results, discuss discharge plan with patient, nursing staff around 65 minutes
Anticipated Discharge: Today
Subjective/Interval History
-
Date of Service: December 31, 2023
He feels better, wants to go home
Objective Data
-
Vital Signs:
Vital Signs
Temp Pulse Resp BP Pulse Ox
98.3 F 89 16 106/67 94
12/31/23 07:58 12/31/23 07:58 12/31/23 07:58 12/31/23 07:58 12/31/23 07:58
I&O
12/30/23 12/31/23 01/01/24
06:59 06:59 06:59
Intake Total 2340 / 2340 1740 / 1740
Output Total 1700 / 1700 1800 / 1800
Balance 640 / 640 -60 / -60
[2023-12-31 14:55] VITALS: BP 128/75
--- NOTE | 2023-12-31 16:40 | CM ---
Patient who was seen by wound care nurse - wound care order noted right leg. Room air. PT recommends Home PT vs No needs. OT recommends HH.
Spoke with [facility] (fax [phone]); they are able to resume service for SN/PT/OT.
Met with patient who was preparing for discharge.
The patient says he feels ready for discharge home today. IMM completed.
He is aware that [facility] will resume service.
The patient plans on driving himself home.
Plan home today with resumption [facility].
--- NOTE | 2024-01-01 06:27 | W.DCSUMMARY ---
Discharge Summary
Discharge Data
Date of Admission: 12/28/23
Date of Discharge: 12/31/23
-
Pending Results: No
Hospital Course
73 years old male presented to the hospital for evaluation of right leg wound. Patient was taking oral antibiotics for positive culture of Pseudomonas, MSSA, Streptococcus. He was treated with oral antibiotics but wounds continue to show positive
culture. Patient did not have fever or chills. No leukocytosis. Patient was evaluated by infectious disease doctor. Patient was found to have a chronic venous stasis ulcers with lymphedema. He did not have signs of infection. ID doctor
recommended to continue wound care with compression dressing to decrease swelling. Also recommended not to culture swab these wounds because of colonization with polymicrobial organisms. Patient remained hemodynamically stable. Patient was
discharged home in a stable condition.
Discharge Plan
-
Patient Disposition: Home (Routine Discharge)
Discharge Diagnosis/Procedures: Chronic venous stasis ulcers RLE
Diet: As tolerated
Activity Restrictions/Additional Instructions:
Wound Care Instructions
R leg: clean with saline, adaptic, abd pad and kerlix change daily and prn drainage. mineral oil to legs and feet daily.
until Visiting nurse can re apply Coban double layer wrap.
leg elevation when sitting
Continue weight loss program
Follow up at wound care center if not healing, call for an appointment.
Referrals:
Paty Mills CRNP [Family Provider] -
Prescriptions:
Continued
ascorbic acid (vitamin C) [Vitamin C] 500 MG tablet
500 mg PO BID
ferrous sulfate [FeroSul] 325 MG tablet
325 mg PO BID
furosemide 20 MG tablet
20 mg PO BID
tamsulosin 0.4 MG capsule
0.4 mg PO HS
glucosamine sulfate [Glucosamine] 500 mg Tablet
500 mg PO HS
aspirin 81 mg Tablet,Chewable
81 mg PO DAILY
cholecalciferol (vitamin D3) 25 mcg (1,000 unit) Tablet
25 mcg PO DAILY
tadalafil 5 mg tablet
5 mg PO DAILYPRN PRN (Reason: ED)
lisinopril 20 mg Tablet
20 mg PO DAILY
cyanocobalamin (vitamin B-12) 1,000 mcg Tablet
1,000 mcg PO DAILY
docusate sodium [Stool Softener] 100 mg Capsule
100 mg PO HS
Discharge Orders:
Discharge Patient (As Directed); Ordered 12/31/23
Ordered By: Jana Banegas
Discharge Date and Time
Discharge Date/Time: 12/31/23 15:22
Print Language: HEBREW
== END 2023-12-31 15:22 | disposition home or self-care (01) | DRG 300 ==
LOC: 3 WEST ACU 20:57
PROVIDERS: Nurse Practitioner; ADMITTING PHYSICIAN Internal Medicine; ATTENDING PHYSICIAN Internal Medicine; CONSULT PHYSICIAN Internal Medicine Infectious Disease; EMERGENCY PHYSICIAN Emergency Medicine; FAMILY PHYSICIAN Nurse Practitioner Adult Health
DX: I83.019 Varicose veins of right lower extremity with ulcer of unspecified site (principal); I50.32 Chronic diastolic (congestive) heart failure; L03.115 Cellulitis of right lower limb; Z68.41 Body mass index [BMI] 40.0-44.9, adult; I89.0 Lymphedema, not elsewhere classified; B96.5 Pseudomonas (aeruginosa) (mallei) (pseudomallei) as the cause of diseases classified elsewhere; B95.61 Methicillin susceptible Staphylococcus aureus infection as the cause of diseases classified elsewhere; E66.01 Morbid (severe) obesity due to excess calories; I11.0 Hypertensive heart disease with heart failure; G47.33 Obstructive sleep apnea (adult) (pediatric); Z79.82 Long term (current) use of aspirin
CPT/HCPCS: 73590; 80048; 80053; 85025; 85027; 87040; 87070; 87077; 87147; 87186; 87205; 96374; 97162; 97166; 99284

== ENCOUNTER 2024-04-11 12:02 | Inpatient (IN) | payer MEDICARE, OTHER, SELFPAY ==
[2024-04-07 19:50] VITALS: BP 145/62; BMI 42.2
--- NOTE | 2024-04-07 20:22 | ED.GENMED ---
History of Present Illness
General
Chief Complaint: Weakness
Source: patient and family
Exam Limitations: none
Time Seen by Provider: 04/07/24 19:48
Nursing documentation reviewed up to this point in time: agreed with
History of Present Illness
History of Present Illness:
Recent history of knee surgery to the left knee 1 month ago otherwise was doing well at home over the past few days has noticed increasing generalized weakness fatigue. This also describes him falling to the ground without any specific trauma due
to generalized weakness. Has been seemingly short of breath also some mild upper respiratory symptoms. The family had the flu recently as well. He denies any specific chest pain.
Past History
Past History
ED Past Medical History: GERD, HTN, Other (Obesity, PNA, Cellulitis, Sleep Apea) and Other (Peripheral vascular disease, venous stasis ulcer)
ED Past Surgical History: Appendectomy and Tonsilectomy
Social History
Tobacco: Non-smoker
Alcohol: None
Drug: None
Personal:
Living: with family
Employment: Employed
Family History
Family History: Other (Noncontributory)
Review of Systems
Review of Systems
Allergies reviewed?: Yes
All Other Systems: ROS reviewed and negative except as documented in HPI and ROS
Phy Exam
Physical Exam
Physical Exam:
GENERAL: Alert , in no apparent distress
EYE: pupils equal and reactive
NECK: Supple, no significant adenopathy.
ENT: o/p clr, mmm.
CARDIAC: Regular rate and rhythm .
LUNGS: Diffuse inspiratory and expiratory wheezing.
ABDOMEN: Soft, without focal tenderness, no r/g, no cvat
NEUROLOGICAL: Alert and oriented, no focal neuro deficits
SKIN: Warm and dry, skin intact.
MUSCULOSKELETAL: Lower extremities bilaterally are wrapped with Med bandages significant edema from the mid thighs distally , well perfused.
PSYCH: Normal and appropriate interaction.
Course
Orders/Labs/Results
Orders:
Orders
04/07/24 20:12
Albuterol [ProAIR HFA INHALER] 2 puff INH R NOW STA
Dexamethasone Sod Phosphate [Decadron] 10 mg IV NOW STA
Chest [CR Chest - 2 Views ] Urgent
Comment:
Reason For Exam: cough sob fever
04/07/24 20:14
EKG [Electrocardiogram (*1)] Urgent
Reason for Study: Shortness of Breath
EKG- Treatment ONCE
04/07/24 21:22
CBC/With Diff [Complete Blood Count/With Diff] Urgent
CMP [Comprehensive Metabolic Panel] Urgent
COVID-19 Antigen Urgent
Source: Nasal Swab
Creatine Phosphokinase Urgent
Lactic Acid Urgent
Troponin I Urgent
Influenza A+B Rapid Molecular Urgent
JOSUÉ Source: Nasal Swab
Specimen Description:
04/07/24 22:34
Urinalysis Reflex To Culture Urgent
Date Specimen was Collected: 04/07/24
Time Specimen was Collected: 22:33
Urine Microscopic Reflex Cult Urgent
Urine Culture Urgent
JOSUÉ Source: U
Specimen Description:
Date Specimen was Collected: 04/07/24
Time Specimen was Collected: 22:33
04/07/24 22:48
Oseltamivir Phosphate [Tamiflu] 75 mg PO NOW STA
Abnormal Lab Results
04/07/24 04/07/24
21:22 22:34
RBC 3.73 L 10^6/uL
(4.70-6.10)
Hgb 10.2 L g/dL
(13.0-18.0)
Hct 33.1 L %
(39.0-52.0)
MCHC 30.8 L g/dL
(33.0-37.0)
Absolute Lymphs (auto) 0.6 L 10^3/uL
(1.2-3.4)
Neutrophils % 76.1 H %
(42.2-75.2)
Lymphocytes % 9.9 L %
(20.5-51.1)
Monocytes % 11.0 H %
(1.7-9.3)
Carbon Dioxide 32 H mmol/L
(22-30)
Creatinine 0.5 L mg/dL
(0.7-1.3)
Glucose 110 H mg/dl
(70-99)
Calcium 8.3 L mg/dl
(8.4-10.2)
Creatine Kinase 240 H U/L
(55-170)
Total Protein 6.2 L g/dl
(6.3-8.2)
Ur Occult Blood Reflex 2+ A
(Negative)
Urine Bacteria (Reflex) Moderate A
(Negative)
Urine Albumin (Reflex) 1+ A
(Neg - Trace)
04/07/24 21:22
04/07/24 21:22
Vital Signs
Initial and Last Documented VS:
Initial Vital Signs
Temp Pulse Resp BP Pulse Ox
99.9 F 81 20 145/62 94
04/07/24 19:50 04/07/24 19:50 04/07/24 19:50 04/07/24 19:50 04/07/24 19:50
Last Documented Vital Signs
Temp Pulse Resp BP Pulse Ox
99.9 F 83 22 145/62 92
04/07/24 19:50 04/07/24 21:27 04/07/24 21:27 04/07/24 19:50 04/07/24 21:27
MDM/Problems Addressed
MDM/Problems Addressed:
73-year-old male presenting to the emergency department today with concerns of generalized weakness worsening over the past 3 days. On arrival patient with low-grade temperature pulse ox in the low 90s when sitting and resting dropping to the 80s
with sitting movement in the bed. Patient has significant diffuse wheezing. This may be secondary to viral syndrome concerning he describes flulike illness as well. He was given dose of steroid as well as inhaler. He does not use oxygen at home.
Patient with slight improvement after receiving albuterol as well as dexamethasone but still having diffuse wheezing pulse ox dropping to the 80s with him just sitting up in the bed. Patient was positive for the flu started on Tamiflu here.
Concerning patient's significant deconditioned trouble with ambulation at home secondary to likely acute illness due to flu plan for admission for further treatment and monitoring.
*Critical Care Note
Total Time (30-74mins, 75-104mins- exclusive of procedures): Not Applicable
ED Attending Note
-
Portions of this chart may have been created with voice recognition software.� Occasional wrong word or��sound alike� substitutions may have occurred due to the inherent limitations of voice recognition software.
Discharge Plan
Departure
Patient Disposition: Admit
Date of Disposition: 04/07/24
Time of Disposition: 22:53
Admit to: Med/Surg
Admit to doctor: Eladio
Presentation/result/management discussed w/ accepting MD/DO: Hospitalist
Patient with high blood pressure during this ER visit?: No
Condition: Fair
Covid-19: Not Applicable
Discharge Problem:
Flu, Wheeze, Generalized weakness
Prescriptions:
No Action
ascorbic acid (vitamin C) [Vitamin C] 500 MG tablet
500 mg PO BID
ferrous sulfate [FeroSul] 325 MG tablet
325 mg PO BID
furosemide 20 MG tablet
20 mg PO BID
tamsulosin 0.4 MG capsule
0.4 mg PO HS
glucosamine sulfate [Glucosamine] 500 mg Tablet
500 mg PO HS
aspirin 81 mg Tablet,Chewable
81 mg PO DAILY
cholecalciferol (vitamin D3) 25 mcg (1,000 unit) Tablet
25 mcg PO DAILY
tadalafil 5 mg tablet
5 mg PO DAILYPRN PRN (Reason: ED)
lisinopril 20 mg Tablet
20 mg PO DAILY
cyanocobalamin (vitamin B-12) 1,000 mcg Tablet
1,000 mcg PO DAILY
docusate sodium [Stool Softener] 100 mg Capsule
100 mg PO HS
Interventions
Interventions:
*Risk Screen - Suicide Last Done: 04/07/24 19:50
*General Assessment Last Done: 04/07/24 21:54
*Neglect/Abuse Screening Last Done: 04/07/24 19:50
ED- Fall Risk Assessment Last Done: 04/07/24 19:50
*ED COVID-19 Vaccine History Last Done: 04/07/24 21:04
ED- Cardiac Assessment Last Done: 04/07/24 19:50
ED- Neurological Assessment Last Done: 04/07/24 19:50
ED- Pulmonary Assessment Last Done: 04/07/24 19:50
Discharge Date and Time
Print Language: [id number]
[2024-04-07] MEDS: ProAIR HFA INHALER 2 PUFF INH (21:23)
[2024-04-07] MEDS: DECADRON 10 MG IV (21:29)
[2024-04-07 21:30] LABS: % Basophils 0.5 % (0-2); % Eosinophils 2.1 % (0-6); % Immature Granulocytes 0.4 % (0-0.5); % Lymphocytes 9.9 % (20.5-51.1); % Neutrophils 76.1 % (42.2-75.2); Absolute Eosinophils 0.1 10^3/uL (0-0.7); Absolute Lymphocytes 0.6 10^3/uL (1.2-3.4); Absolute Monocytes 0.6 10^3/uL (0.1-0.6); Absolute Neutrophils 4.3 10^3/uL (1.4-6.5); Hematocrit 33.1 % (39.0-52.0); Hemoglobin 10.2 g/dL (13.0-18.0); Mean Corp Hgb Conc. 30.8 g/dL (33.0-37.0); Mean Corpuscular Hgb 27.3 pg (27.0-31.0); Mean Corpuscular Volume 88.7 fL (80.0-94.0); Mean Platelet Volume 9.5 fL (7.4-10.4); Nucleated Red Blood Cells % 0 % (-); Platelet Count 180 10^3/uL (130-400); Red Blood Cell Count 3.73 10^6/uL (4.70-6.10); Red Cell Dist. Width 13.5 % (11.5-14.5); White Blood Cell Count 5.6 10^3/uL (4.8-10.8)
[2024-04-07 21:41] LABS: Lactic Acid 0.9 mmol/L (0.7-2.0)
[2024-04-07 21:42] LABS: ALT (SGPT) 12 U/L (0-50); AST (SGOT) 17 U/L (17-59); Albumin 3.5 g/dl (3.5-5.0); Alkaline Phosphatase 86 U/L (38-126); Blood Urea Nitrogen 18 mg/dl (9-20); Calcium 8.3 mg/dl (8.4-10.2); Carbon Dioxide 32 mmol/L (22-30); Chloride 99 mmol/L (98-107); Creatine Phosphokinase 240 U/L (55-170); Estimated Creatinine Clearance > 125 ml/min; Glucose 110 mg/dl (70-99); Potassium 3.7 mmol/L (3.5-5.1); Sodium 137 mmol/L (135-145); Total Bilirubin 0.6 mg/dl (0.2-1.3); Total Protein 6.2 g/dl (6.3-8.2); eGFR > 60.00
[2024-04-07 21:53] LABS: Troponin I < 0.012 ng/ml
[2024-04-07 21:59] LABS: COVID-19 Antigen Negative (Negative)
[2024-04-07 22:42] LABS: Urine Albumin 1+ (Neg - Trace); Urine Bilirubin Negative (Negative); Urine Character Clear (Clear); Urine Color Yellow; Urine Glucose Negative (Negative); Urine Ketone Negative (Negative); Urine Leukocyte Negative (Negative); Urine Nitrite Negative (Negative); Urine Occult Blood 2+ (Negative); Urine Urobilinogen Negative (Neg - 1+)
[2024-04-07 22:47] LABS: Urine Squamous Cell >30 /LPF (Few)
[2024-04-07 22:48] LABS: Urine Bacteria Moderate (Negative); Urine Red Blood Cell 0-2 /HPF (0-2); Urine White Cell 0-2 /HPF (0-5)
[2024-04-07] MEDS: TAMIFLU 75 MG PO (23:15)
--- NOTE | 2024-04-07 23:52 | HPS.HSE ---
Family Physician
-
Family Physician: Paty Mills
Chief Complaint
-
Weakness, Cough
History of Present Illness
Patient is a 73y M with PMH significant for chronic lymphedema / chronic LE wounds and morbid obesity who presents to ED complaining of weakness, cough and fall at home. Patient states that he has had cough, chest congestion and malaise for the
past 2 days. Myalgias, chills, poor appetite and generalized weakness. Today patient had a fall at home when his legs 'gave out'. He fell to the R. He denies striking his head, LOC, etc. He states that he felt dizzy prior to the fall. No chest
pain.
911 was called to help the patient up. He declined hospital evaluation at that time. About an hour later, so was helping him ambulate from his wheelchair to his recliner and his legs gave out again. Son was able to assist him to his seat;
however, EMS was called again and this time patient was brought to the ED.
Family members were ill with flu symptoms about one week ago.
Medical History
Past Medical History
Past Medical History: Reports Other
Additional Past Medical History:
Chronic Venous Stasis / Venous Insufficiency
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
Morbid Obesity
Hypertension
MEG not Currently on CPAP
Past Surgical History: Reports Other
Additional Past Surgical History:
Left TKA (2 weeks ago)
RLE Vein Stripping
Appendectomy
Social History
Tobacco: Non-smoker
Alcohol: None
Drug: None
Family History
Family History: Other (Mother: Breast Cancer)
Allergies / Home Medications
Allergies reflects when Allergies were last updated in [employer].
Home Medications with original date entered in [employer]
Allergy/Medication List:
Allergies
Allergy/AdvReac Type Severity Reaction Status Date / Time
No Known Allergies Allergy Verified 12/28/23 17:49
Home Medications
ascorbic acid (vitamin C) 500 mg tablet (Vitamin C) 500 mg PO BID Supplement 02/21/18
ferrous sulfate 325 mg (65 mg iron) tablet (FeroSul) 325 mg PO BID Supplement 02/21/18
furosemide 20 mg tablet 20 mg PO BID Fluid retention/Swelling 02/21/18
tamsulosin 0.4 mg capsule 0.4 mg PO HS Urinary issue 02/21/18
aspirin 81 mg chewable tablet 81 mg PO DAILY Blood clot prevention/tx 12/07/21
cholecalciferol (vitamin D3) 25 mcg (1,000 unit) tablet 20 mcg PO DAILY Supplement 12/07/21
glucosamine sulfate 500 mg tablet (Glucosamine) 500 mg PO HS Supplement 12/07/21
tadalafil 5 mg tablet 5 mg PO DAILYPRN PRN ED 06/14/23
cyanocobalamin (vitamin B-12) 1,000 mcg tablet 1,000 mcg PO DAILY Supplement 12/28/23
docusate sodium 100 mg capsule (Stool Softener) 100 mg PO PRN PRN Constipation 12/28/23
lisinopril 20 mg tablet 20 mg PO DAILY Blood Pressure 12/28/23
Review of Systems
-
History Source: Patient and Family
A 12 point ROS was completed and negative except as noted: Yes
Constitutional: Reports Fatigue; Denies Fever or Chills
EENT: Denies Sore Throat
Respiratory: Reports Cough and Trouble Breathing
Cardiac: Denies Chest Pain or Palpitations
Abdomen/GI: Denies Abdominal Pain, Nausea, Vomiting or Diarrhea
: Denies Dysuria or Frequency
Musculoskeletal: Reports Edema
Skin: Reports Other (LE wounds)
Neurological: Denies Dizzy or Headache
Psych: Denies Depression or Anxiety
Physical Exam
Vital Signs
Vital Signs
Temp Pulse Resp BP Pulse Ox
99.9 F 83 22 145/62 92
04/07/24 19:50 04/07/24 21:27 04/07/24 21:27 04/07/24 19:50 04/07/24 21:27
Physical Exam
General: Other (73y M ill-appearing.)
HEENT: Other (Thick neck.)
Respiratory: Other (Few scattered rales.)
Cardiac: S1/S2 and Regular Rhythm; No Murmur
GI: Other (Obese, not tender. pos BS.)
Musculoskeletal: No Clubbing, No Cyanosis and Other (Chronic brawny edema b/l LEs. Dressings in place over chronic b/l LE wounds - no strikethrough / bleeding.)
Neuro: AO x 3
Laboratory Results
-
04/07/24 21:22
04/07/24 21:
Laboratory Results
Lactic Acid 0.9 mmol/L (0.7-2.0) 04/07/24 21:
Total Bilirubin 0.6 mg/dl (0.2-1.3) 04/07/24 21:
AST 17 U/L (17-59) 04/07/24 21:
ALT 12 U/L (0-50) 04/07/24 21:
Alkaline Phosphatase 86 U/L (38-126) 04/07/24 21:22
Troponin I < 0.012 ng/ml 04/07/24 21:22
Impression/Plan
-
A/P: Patient is a 73y M with PMH significant for morbid obesity, MEG and non-healing / chronic LE wounds who presents to ED complaining of cough, weakness and fall at home.
Influenza A
- Observe overnight for further evaluation and treatment.
- Afebrile, no significant hypoxemia. Pos vaccinated host.
- Tamiflu BID.
- Supportive care with albuterol, O2, etc.
- Follow proper precautions.
- Follow for clinical improvement.
Generalized Weakness
Fall at Home
s/p L TKA
- Multifactorial weakness / gait dysfunction.
- Acute illness / weakness due to influenza
- s/p L TKA only 2 weeks ago.
- Chronic b/l LE lymphedema / deconditioning / chronic wounds.
- PT / OT evaluations.
- Follow for gait stability.
- ? SNF at discharge.
Normocytic Anemia
- Unclear etiology.
- Baseline appears to range between 9-12 - currently 10.2.
- Patient is on iron supplementation as an outpatient and will continue this.
Bilateral LE Wounds
- Chronic RLE wound and relatively new LLE wound.
- Wound Care evaluation for continued local care.
Benign Hypertension
- Stable. Continue outpatient medications with holding parameters.
Morbid Obesity due to excess calories
- Affects all aspects of care.
- Encourage healthy diet and increased activity with goal of weight reduction.
DVT Prophylaxis: Lovenox
Code Status: Full
[2024-04-08] VITALS (7 sets, daily range): BP systolic 110–160; BP diastolic 65–95; PULSE 73; O2SAT 97; BMI 45.6
--- NOTE | 2024-04-08 03:00 | PTCARENOTE ---
Pt. received from ED and admitted to room 2126. Pt. oriented to room. Upon initial admissions assessment pt. explained that he had chronic LE wounds and that he would prefer for the LE dressings not to be removed as his wound care nurse had
redressed them just a few hours prior to hospital admission. Dressings C/D/I; wound care consulted. Wounds present on admission charted in initial admissions assessment. Pt. is resting comfortably at this time; plan of care continues.
[2024-04-08 07:26] LABS: Hematocrit 31.9 % (39.0-52.0); Hemoglobin 9.7 g/dL (13.0-18.0); Mean Corp Hgb Conc. 30.4 g/dL (33.0-37.0); Mean Corpuscular Hgb 27.3 pg (27.0-31.0); Mean Corpuscular Volume 89.9 fL (80.0-94.0); Mean Platelet Volume 9.9 fL (7.4-10.4); Platelet Count 179 10^3/uL (130-400); Red Blood Cell Count 3.55 10^6/uL (4.70-6.10); Red Cell Dist. Width 13.3 % (11.5-14.5); White Blood Cell Count 4.6 10^3/uL (4.8-10.8)
[2024-04-08 07:50] LABS: Blood Urea Nitrogen 17 mg/dl (9-20); Calcium 8.4 mg/dl (8.4-10.2); Carbon Dioxide 31 mmol/L (22-30); Chloride 98 mmol/L (98-107); Estimated Creatinine Clearance > 125 ml/min; Glucose 157 mg/dl (70-99); Sodium 137 mmol/L (135-145); eGFR > 60.00
[2024-04-08] MEDS: VITAMIN C 500 MG PO ×2 (08:02→20:19)
[2024-04-08] MEDS: TAMIFLU 75 MG PO ×2 (08:02→20:19)
[2024-04-08] MEDS: FEOSOL 325 MG PO ×2 (08:02→20:18)
[2024-04-08] MEDS: LOW STRENGTH ASPIRIN 81 MG PO (08:02)
[2024-04-08] MEDS: ZESTRIL 20 MG PO (08:02)
[2024-04-08] MEDS: LASIX 20 MG PO ×2 (08:02→20:18)
[2024-04-08] MEDS: VITAMIN D3 (cholecalciferol) 25 MCG PO (08:02)
--- NOTE | 2024-04-08 09:17 | W.PN.HOSP.TC ---
Today's Communication/Plan
-
MRI lumbar
PT/OT
Eventual rehab
Assessment / Plan
Assessment / Plan
73yo M with PMHX of morbid obesity, HFpEF, HTN, MEG, BRIAN, GERD, b/l LE venous stasis, schiatica, Hx of L TKA 1 month ago sent from rehav with progressive b/l LE weakness. He was able to walk with a walker before day of admision, however developed
decreased ability advance legs forward when standing. Lower back pain now worse with worse ROM of RLE when walking. Also found Influenza A
A/P:
#B/L LE Weakness R>L LE
#Chronic schiatica
Reasonable to check lumbar MRI
PT/OT
Can also be 2/2 acute viral disease
#Influenza A
Tamiflue
Droplet precautions
#MEG
#Chronic HFpEF
#Mobid obesity
#BPH
#b/l LE venous insufficiecny with chronic b/l LE venous ulvcers and lymphedema
#GERD
#BRIAN
#Essential HTN
Wound care
C[facility]t home em[facility]
advise to decrease calorie intake
#Mild leukopenia
2/2 viral disease
follow as oputpatient with PCP
#Recent L TKA
Well healing scar, no redness or swelling
DVT ppx lovenox
Full code
I have spent at least 58min reviewing chart, test results and providing direct patient care
Anticipated Discharge: 24 - 48 hours
Subjective/Interval History
-
Date of Service: April 08, 2024
Objective Data
-
Labs:
Laboratory Results
04/07/24 04/08/24
21:22 06:32
WBC 5.6 4.6 L
Hgb 10.2 L 9.7 L
Hct 33.1 L 31.9 L
Plt Count 180 179
Sodium 137 137
Potassium 3.7 4.0
Chloride 99 98
Carbon Dioxide 32 H 31 H
BUN 18 17
Creatinine 0.5 L 0.5 L
Glucose 110 H 157 H
Calcium 8.3 L 8.4
Total Bilirubin 0.6
AST 17
ALT 12
Alkaline Phosphatase 86
Vital Signs:
Vital Signs
Temp Pulse Resp BP Pulse Ox
99.0 F 71 16 137/79 96
04/08/24 07:56 04/08/24 08:02 04/08/24 07:56 04/08/24 08:02 04/08/24 08:46
I&O
04/07/24 04/08/24 04/09/24
06:59 06:59 06:59
Intake Total 120 / 120
Balance 120 / 120
Review of Systems
-
History Source: Patient
All other systems: Reviewed and negative
Constitutional: Reports Fatigue
Physical Exam
-
General: No Apparent Distress
HEENT: Normocephalic
Cardiac: Regular Rhythm
GI: Soft, Nontender and Nondistended
Genito-urinary: No Costovertebral Tender
Musculoskeletal: No Clubbing, No Cyanosis, Edema, Right Lower Extrem and Edema, Left Lower Extrem
Skin: Warm
Neuro: Awake, Alert, Oriented, AO x 3 and No Motor Deficits
Psych: Calm
--- NOTE | 2024-04-08 11:21 | CM ---
Reviewed the chart notes and spoke with the patient at the bedside. The patient is admitted under observational status. The AREVALO letter was presented and explained. The patient had no questions with regards to the letter.
The patient resides in an in-law suite attached to his son's home with a ramp to enter. The patient has a rolling walker, wheelchair, leg compression pump, shower chair, shower rails, raised toilet, and a lift recliner. The patient is current with
[facility] and has been to [facility] in the past. CM continues to be available to patient/family and is monitoring medical plan for needs at discharge.
Plan: Discharge plans will depend on the patient's progress. Hopefully home with resumption of [facility] services.
[2024-04-08] MEDS: DESENEX/MITRAZOL/ZEASORB 1 APPLIC TOPICAL ×2 (12:57→20:19)
[2024-04-08] MEDS: ULTRAM 25 MG PO ×2 (13:28→20:29)
--- NOTE | 2024-04-08 13:38 | PTCARENOTE ---
Addendum entered by Jocy Wheatley RN 04/08/24 13:48:
plan of care ongoing. No c/o at this time.
Original Note:
patient AAOx3, noted with b/l LE wounds. As per pt dressings were changed prior to arrival to ed 04/07/24.Patient declines nursing intervention for dressing change at this time, stating preference to wait for wound nurse tomorrow.Upon assessment,
current dressings C/D/I. made aware. No c/o at times
[2024-04-08] MEDS: LOVENOX 40 MG SC (17:08)
--- NOTE | 2024-04-08 20:18 | PTCARENOTE ---
Patient declined this RN to change B/L med wrap and wound dressings. Med wraps compressed from base of toes to below knee, no signs of drainage. Weak palpable pedals pulses. WOC consult ordered.
[2024-04-08] MEDS: FLOMAX 0.4 MG PO (21:09)
[2024-04-09 03:30] VITALS: BMI 45.1
[2024-04-09 06:44] LABS: % Basophils 0.8 % (0-2); % Eosinophils 6.3 % (0-6); % Immature Granulocytes 0.3 % (0-0.5); % Lymphocytes 27.4 % (20.5-51.1); % Monocytes 17.4 % (1.7-9.3); % Neutrophils 47.8 % (42.2-75.2); Absolute Eosinophils 0.2 10^3/uL (0-0.7); Absolute Monocytes 0.6 10^3/uL (0.1-0.6); Absolute Neutrophils 1.8 10^3/uL (1.4-6.5); Hematocrit 30.1 % (39.0-52.0); Hemoglobin 9.4 g/dL (13.0-18.0); Mean Corp Hgb Conc. 31.2 g/dL (33.0-37.0); Mean Corpuscular Hgb 27.4 pg (27.0-31.0); Mean Corpuscular Volume 87.8 fL (80.0-94.0); Nucleated Red Blood Cells % 0 % (-); Platelet Count 162 10^3/uL (130-400); Red Blood Cell Count 3.43 10^6/uL (4.70-6.10); Red Cell Dist. Width 13.5 % (11.5-14.5); White Blood Cell Count 3.7 10^3/uL (4.8-10.8)
[2024-04-09 07:20] VITALS: BP 121/68
[2024-04-09] MEDS: TAMIFLU 75 MG PO ×2 (08:25→20:16)
[2024-04-09] MEDS: LOW STRENGTH ASPIRIN 81 MG PO (08:25)
[2024-04-09] MEDS: ZESTRIL 20 MG PO (08:25)
[2024-04-09] MEDS: LASIX 20 MG PO ×2 (08:25→20:16)
[2024-04-09] MEDS: VITAMIN D3 (cholecalciferol) 25 MCG PO (08:25)
[2024-04-09] MEDS: FEOSOL 325 MG PO ×2 (08:25→20:16)
[2024-04-09] MEDS: VITAMIN C 500 MG PO ×2 (08:25→20:16)
[2024-04-09] MEDS: DESENEX/MITRAZOL/ZEASORB 1 APPLIC TOPICAL ×2 (08:27→20:17)
--- NOTE | 2024-04-09 10:52 | CM ---
Met with patient
Await MRI today
PT rec SNF
Patient declines SNF
Current [facility] (RN,PT,OT) - referral in [facility] - spoke with Kesha
Left message with martha Traylor [phone]
PLAN: Discharge when medically stable
Declines SNF, wants to return to home with [facility] Fax #: [phone]
--- NOTE | 2024-04-09 11:10 | WOUNDNOTE ---
R LATERAL/POSTERIOR LOWER LEG
--- NOTE | 2024-04-09 11:11 | WOUNDNOTE ---
R LATERAL LOWER LEG
--- NOTE | 2024-04-09 11:11 | WOUNDNOTE ---
L POSTERIOR LOWER LEG
--- NOTE | 2024-04-09 11:15 | WOUNDNOTE ---
WON RN note: Patient admitted with Flu, wheezing and generalized weakness.
See H&P for complete history. Lives at home with Son and family.
PMH: Obesity, HTN, chronic R lower leg venous stasis ulcer, RLE vein stripping, appendectomy, B/L lymphedema of legs, R knee replacement 2022 and L knee replacement February 2024.
Wound Location and type/assessment: Patient known to service, last seen 12/29/23 for chronic R leg venous stasis ulcer. Now has another venous ulcer on posterior L leg, base pink with scant yellow. Compared to last seen R leg wounds improved,
smaller cluster, clean red base. Less edema of legs, + palpable pedal pulses, heels intact. L plantar foot with bleeding linear scab from compression cutting into skin. Legs and feet with dry flaky skin. Patient confirmed he still has Visiting wound
[employer] come to home weekly and VN. Uses foam dressings under [place] double layer wrap to R and L leg knee high, 2- 3 times a week. Moisturizes legs with Eucerin. Has recliner chair that elevates legs above level of heart and uses a lymphedema pump for 1
hr in evening. Increased difficulty ambulating at home after surgery, using walker in home. Patient turned to side with assist, barrier cream in use, Sacrum is intact. MASD in skin folds.
Appetite: good. Dietary on consult.
Pressure redistribution devices in place: Centrella air bed, turning schedule, pillow under calves.
Plan: Leg dressings changed using adaptic, abd pad and kerlix, martha wrap knee high. Applied Vaseline to both legs and feet, will order mineral oil to start tomorrow. Will confirm orders with hospitalist and updated JOHN Sandra.
Care plan to be updated and will follow as needed.
Note to case management requested for discharge: VN to continue for wound care.
Patient to follow up at wound care center upon discharge if not healing.
--- NOTE | 2024-04-09 12:19 | W.PN.HOSP.TC ---
Today's Communication/Plan
-
MRI lumbar spine
Begin planning for SNF
Assessment / Plan
Assessment / Plan
NAD
Scleral Anicteric
MMM
No JVD
CTABL
RRR, S1/S2
Obese, soft, NT, ND, BS+
Warm, Dry, chronic venous stasis change
AAOx3
Bilateral lower extremity weakness which is likely secondary to influenza A/viral disease and chronic sciatica
Lumbar spine MRI pending
PT OT recommends SNF
Influenza A
Tamiflu
Droplet precaution
#MEG
#Chronic HFpEF
#Mobid obesity
#BPH
#b/l LE venous insufficiecny with chronic b/l LE venous ulvcers and lymphedema
#GERD
#BRIAN
#Essential HTN
Wound care
C[facility]t home emds
advise to decrease calorie intake
#Mild leukopenia
2/2 viral disease
follow as oputpatient with PCP
#Recent L TKA
Well healing scar, no redness or swelling
DVT ppx lovenox
Full code
I have spent at least 58min reviewing chart, test results and providing direct patient care
Anticipated Discharge: 24 - 48 hours
Subjective/Interval History
-
Date of Service: April 09, 2024
Seen and examined. No new complaints. No acute overnight events. Was on the stretcher gone down from the lumbar spine.
Objective Data
-
Labs:
Laboratory Results
04/09/24
05:54
WBC 3.7 L
Hgb 9.4 L
Hct 30.1 L
Plt Count 162
Vital Signs:
Vital Signs
Temp Pulse Resp BP Pulse Ox
98.6 F 67 18 121/68 95
04/09/24 07:20 04/09/24 08:25 04/09/24 07:20 04/09/24 08:25 04/09/24 09:20
I&O
04/08/24 04/09/24 04/10/24
06:59 06:59 06:59
Intake Total 120 / 120 3080 / 3080
Output Total 2109 / 2109
Balance 120 / 120 970 / 970
[2024-04-09 15:15] VITALS: BP 138/68
[2024-04-09] MEDS: LOVENOX 40 MG SC (17:16)
[2024-04-09] MEDS: FLOMAX 0.4 MG PO (21:08)
[2024-04-09 23:02] VITALS: BP 135/68
[2024-04-10 06:00] VITALS: BMI 44.7
[2024-04-10 07:14] VITALS: BP 140/74
[2024-04-10] MEDS: VITAMIN C 500 MG PO ×2 (07:44→21:05)
[2024-04-10] MEDS: LASIX 20 MG PO ×2 (07:44→21:05)
[2024-04-10] MEDS: ZESTRIL 20 MG PO (07:44)
[2024-04-10] MEDS: TAMIFLU 75 MG PO ×2 (07:44→21:05)
[2024-04-10] MEDS: LOW STRENGTH ASPIRIN 81 MG PO (07:44)
[2024-04-10] MEDS: VITAMIN D3 (cholecalciferol) 25 MCG PO (07:44)
[2024-04-10] MEDS: FEOSOL 325 MG PO ×2 (07:44→21:05)
[2024-04-10] MEDS: DESENEX/MITRAZOL/ZEASORB 1 APPLIC TOPICAL ×2 (07:45→21:06)
[2024-04-10] MEDS: HYDROPHOR 1 APPLIC TOPICAL (07:45)
--- NOTE | 2024-04-10 11:21 | CM ---
Addendum entered by Dora Mena 04/10/24 11:55:
Spoke with Zandra from [facility], they will review for the second chance program.
Clinicals faxed to [phone]
Original Note:
Patient seen bedside.
Patient does not feel he can manage at home, too weak and says he needs rehab.
Patient stated he was able to ambulate house hold distances with a RW prior to admission.
Patient with recent inpatient acute rehab stay at [facility], call placed to admissions, await TCB.
Patient currently does not qualify for skilled rehab.
Plan: possible rehab vs home with services.
--- NOTE | 2024-04-10 14:55 | W.PN.HOSP.TC ---
Today's Communication/Plan
-
For SNF
Assessment / Plan
Assessment / Plan
NAD
Scleral Anicteric
MMM
No JVD
CTABL
RRR, S1/S2
Obese, soft, NT, ND, BS+
Warm, Dry, chronic venous stasis change
AAOx3
Bilateral lower extremity weakness which is likely secondary to influenza A/viral disease and chronic sciatica
Lumbar spine MRI mild to moderate multilevel degenerative changes with resultant multifocal spinal canal and neuroforaminal narrowing. Most pronounced at L4-L5 where there is resultant moderate canal stenosis and moderate bilateral neuroforaminal
narrowing
PT OT recommends SNF
Influenza A
Tamiflu x 5
Droplet precaution
#MEG
#Chronic HFpEF
#Mobid obesity
#BPH
#b/l LE venous insufficiecny with chronic b/l LE venous ulvcers and lymphedema
#GERD
#BRIAN
#Essential HTN
Wound care
COnt home emds
advise to decrease calorie intake
#Mild leukopenia
2/2 viral disease
follow as oputpatient with PCP
#Recent L TKA
Well healing scar, no redness or swelling
DVT ppx lovenox
Full code
Initially interested in home. However he does not feel strong enough as he is unable to ambulate previous household distances. Therefore we will require SNF
Anticipated Discharge: Within 24 hours
Subjective/Interval History
-
Date of Service: April 10, 2024
Seen and examined. No new complaints. No acute overnight events.
States that he still feels weak.
Objective Data
-
Vital Signs:
Vital Signs
Temp Pulse Resp BP Pulse Ox
97.9 F 77 18 140/74 95
04/10/24 07:14 04/10/24 07:44 04/10/24 07:14 04/10/24 07:44 04/10/24 10:25
I&O
04/09/24 04/10/24 04/11/24
06:59 06:59 06:59
Intake Total 3080 / 3080 1860 / 1860
Output Total 2109 / 2109 2149 / 2149
Balance 970 / 970 -290 / -290
[2024-04-10 15:26] VITALS: BP 105/65
[2024-04-10] MEDS: LOVENOX 40 MG SC (17:00)
[2024-04-10] MEDS: FLOMAX 0.4 MG PO (21:05)
[2024-04-10 23:30] VITALS: BP 150/84
[2024-04-11] MEDS: TYLENOL 650 MG PO (02:31)
[2024-04-11 06:00] VITALS: BMI 44.2
[2024-04-11 07:17] VITALS: BP 129/76
[2024-04-11] MEDS: TAMIFLU 75 MG PO ×2 (07:56→20:35)
[2024-04-11] MEDS: VITAMIN C 500 MG PO ×2 (07:56→20:34)
[2024-04-11] MEDS: VITAMIN D3 (cholecalciferol) 25 MCG PO (07:56)
[2024-04-11] MEDS: LOW STRENGTH ASPIRIN 81 MG PO (07:56)
[2024-04-11] MEDS: FEOSOL 325 MG PO ×2 (07:56→20:35)
[2024-04-11] MEDS: LASIX 20 MG PO ×2 (07:56→20:34)
[2024-04-11] MEDS: ZESTRIL 20 MG PO (08:06)
[2024-04-11] MEDS: DESENEX/MITRAZOL/ZEASORB 1 APPLIC TOPICAL ×2 (08:08→20:34)
[2024-04-11] MEDS: HYDROPHOR 1 APPLIC TOPICAL (08:09)
--- NOTE | 2024-04-11 08:47 | CM ---
Addendum entered by Varsha White 04/11/24 15:32:
Zandra from [facility] called CM - unable to accept patient.
tt today from that patient LOC change to inpatient
Addendum entered by Varsha White 04/11/24 13:52:
Spoke with Zandra at [facility] - she requested updated clinicals/labs to be sent to her.
Updated in [facility].
Await call back.
Original Note:
Spoke with Zandra [phone] admissions at [facility] - states the patient was discharged to home from their rehab on 03/25/24.
Referral in [facility] - Zandra states she will be reviewing the referral & will get back to CM
PLAN: possible acute rehab at [facility]
--- NOTE | 2024-04-11 12:08 | W.PN.HOSP.TC ---
Today's Communication/Plan
-
Rehab vs home with INFECTIOUS DISEASE PHYSICIAN
Would favor the former as he was recently discharged from rehab and was able to ambulate.
Assessment / Plan
Assessment / Plan
NAD
Scleral Anicteric
MMM
No JVD
CTABL
RRR, S1/S2
Obese, soft, NT, ND, BS+
Warm, Dry, chronic venous stasis change
AAOx3
Bilateral lower extremity weakness which is likely secondary to influenza A/viral disease and chronic sciatica
Lumbar spine MRI mild to moderate multilevel degenerative changes with resultant multifocal spinal canal and neuroforaminal narrowing. Most pronounced at L4-L5 where there is resultant moderate canal stenosis and moderate bilateral neuroforaminal
narrowing
PT OT recommends SNF
Influenza A
Tamiflu x 5
Droplet precaution
#MEG
#Chronic HFpEF
#Mobid obesity
#BPH
#b/l LE venous insufficiecny with chronic b/l LE venous ulvcers and lymphedema
#GERD
#BRIAN
#Essential HTN
Wound care
COnt home emds
advise to decrease calorie intake
#Mild leukopenia
2/2 viral disease
follow as oputpatient with PCP
#Recent L TKA
Well healing scar, no redness or swelling
DVT ppx lovenox
Full code
Initially interested in home. However he does not feel strong enough as he is unable to ambulate previous household distances. Therefore we will require rehab. CM working on this and awaiting to hear back.
Anticipated Discharge: Within 24 hours
Subjective/Interval History
-
Date of Service: April 11, 2024
seen and examined. no acute overnight events. sitting in bedside chairs
still having difficulty walking
Objective Data
-
Vital Signs:
Vital Signs
Temp Pulse Resp BP Pulse Ox
97.7 F 71 18 129/76 95
04/11/24 07:17 04/11/24 08:06 04/11/24 07:17 04/11/24 08:06 04/11/24 08:20
I&O
04/10/24 04/11/24 04/12/24
06:59 06:59 06:59
Intake Total 1860 / 1860 1380 / 1380
Output Total 2150 / 2150 1375 / 1375
Balance -290 / -290
[2024-04-11 12:54] VITALS: BP 142/82; PULSE 84; O2SAT 94
[2024-04-11 12:55] VITALS: BP 142/82; PULSE 83; O2SAT 94
[2024-04-11 15:48] VITALS: BP 108/64
[2024-04-11] MEDS: LOVENOX 40 MG SC (17:31)
[2024-04-11] MEDS: FLOMAX 0.4 MG PO (20:35)
[2024-04-11 23:05] VITALS: BP 115/67
[2024-04-12 06:00] VITALS: BMI 44.2
[2024-04-12] MEDS: LOW STRENGTH ASPIRIN 81 MG PO (08:04)
[2024-04-12] MEDS: TAMIFLU 75 MG PO ×2 (08:04→21:00)
[2024-04-12] MEDS: VITAMIN C 500 MG PO ×2 (08:04→21:00)
[2024-04-12] MEDS: FEOSOL 325 MG PO ×2 (08:04→21:00)
[2024-04-12] MEDS: VITAMIN D3 (cholecalciferol) 25 MCG PO (08:04)
[2024-04-12 08:05] VITALS: BP 147/75
[2024-04-12] MEDS: LASIX 20 MG PO ×2 (08:05→21:06)
[2024-04-12] MEDS: HYDROPHOR 1 APPLIC TOPICAL (08:05)
[2024-04-12] MEDS: ZESTRIL 20 MG PO (08:05)
[2024-04-12] MEDS: DESENEX/MITRAZOL/ZEASORB 1 APPLIC TOPICAL ×2 (08:06→21:05)
--- NOTE | 2024-04-12 10:23 | CM ---
Addendum entered by Varsha White 04/12/24 15:47:
Per Jina, no bed at [facility], Per Viri no bed available at [facility].
Additional referrals sent to participating facilities.
Addendum entered by Varsha White 04/12/24 13:26:
Faxed hospitalist progress note to [facility] - [phone]
notified Sheri
Original Note:
Spoke with Sheri today regarding waiver program for this patient
Patient LOC changed to inpatient yesterday
She states patient does qualify for waiver program. tt hospitalist. Explained to the patient qualified for waiver program.
Reviewed participating facilities with patient & gave him medicare.gov care compare site.
Referrals entered in [facility], [facility]
Called Jina trejo at [facility], and Hortencia at [facility]
PLAN: SNF, pending bed availability
--- NOTE | 2024-04-12 13:04 | W.PN.HOSP.TC ---
Today's Communication/Plan
-
dc snf
Assessment / Plan
Assessment / Plan
NAD
Scleral Anicteric
MMM
No JVD
CTABL
RRR, S1/S2
Obese, soft, NT, ND, BS+
Warm, Dry, chronic venous stasis change
AAOx3
Bilateral lower extremity weakness which is likely secondary to influenza A/viral disease and chronic sciatica
Lumbar spine MRI mild to moderate multilevel degenerative changes with resultant multifocal spinal canal and neuroforaminal narrowing. Most pronounced at L4-L5 where there is resultant moderate canal stenosis and moderate bilateral neuroforaminal
narrowing
PT OT recommends SNF
Influenza A
Tamiflu x 5
Droplet precaution
#MEG
#Chronic HFpEF
#Mobid obesity
#BPH
#b/l LE venous insufficiecny with chronic b/l LE venous ulvcers and lymphedema
#GERD
#BRIAN
#Essential HTN
Wound care
COnt home emds
advise to decrease calorie intake
#Mild leukopenia
2/2 viral disease
follow as oputpatient with PCP
#Recent L TKA
Well healing scar, no redness or swelling
DVT ppx lovenox
Full code
PT recommending shelter facility. I also would recommend this as he has barely able to ambulate/stand. He is physically deconditioned secondary to acute viral syndrome and flu. He is a fall risk and would strongly benefit from rehab
Anticipated Discharge: Today
Subjective/Interval History
-
Date of Service: April 12, 2024
Seen and examined. No new complaints. No acute overnight events.
Objective Data
-
Vital Signs:
Vital Signs
Temp Pulse Resp BP Pulse Ox
98.9 F 75 24 147/75 95
04/12/24 08:05 04/12/24 08:05 04/12/24 08:05 04/12/24 08:05 04/12/24 10:00
I&O
04/11/24 04/12/24 04/13/24
06:59 06:59 06:59
Intake Total 1380 / 1380 1245 / 1245
Output Total 1375 / 1375 1950 / 1950
Balance -705 / -705
[2024-04-12 15:31] VITALS: BP 118/67
[2024-04-12] MEDS: LOVENOX 40 MG SC (17:00)
[2024-04-12] MEDS: FLOMAX 0.4 MG PO (21:08)
[2024-04-12 23:19] VITALS: BP 149/79
[2024-04-13 06:00] VITALS: BMI 44.2
[2024-04-13 07:05] VITALS: BP 146/70
[2024-04-13] MEDS: LOW STRENGTH ASPIRIN 81 MG PO (08:12)
[2024-04-13] MEDS: FEOSOL 325 MG PO ×2 (08:12→21:13)
[2024-04-13] MEDS: VITAMIN D3 (cholecalciferol) 25 MCG PO (08:12)
[2024-04-13] MEDS: ZESTRIL 20 MG PO (08:12)
[2024-04-13] MEDS: VITAMIN C 500 MG PO ×2 (08:12→21:13)
[2024-04-13] MEDS: LASIX 20 MG PO ×2 (08:13→21:12)
[2024-04-13] MEDS: DESENEX/MITRAZOL/ZEASORB 1 APPLIC TOPICAL ×2 (08:16→21:16)
[2024-04-13] MEDS: HYDROPHOR 1 APPLIC TOPICAL (08:16)
[2024-04-13 09:04] VITALS: BP 146/70
--- NOTE | 2024-04-13 11:52 | CM ---
Search for SNF bed continues (under waiver)
CM left message with [facility]
PLAN: SNF, pending bed availability
--- NOTE | 2024-04-13 12:56 | CM ---
Addendum entered by Varsha White 04/13/24 13:09:
IMM explained & signed. In chart
Original Note:
Patient seen at bedside
PT now rec home PT vs. SNF
patient was current with [facility] (RN/PT/OT) - referral in [facility]
Unsuccessful at this point finding SNF under waiver program
Left message with [facility], other SNF's no beds or cannot accept
PLAN: [facility] vs. SNF
--- NOTE | 2024-04-13 13:21 | W.PN.HOSP.TC ---
Today's Communication/Plan
-
Looking for placement.
Assessment / Plan
Assessment / Plan
NAD
Scleral Anicteric
MMM
No JVD
CTABL
RRR, S1/S2
Obese, soft, NT, ND, BS+
Warm, Dry, chronic venous stasis change
AAOx3
Bilateral lower extremity weakness which is likely secondary to influenza A/viral disease and chronic sciatica
Lumbar spine MRI mild to moderate multilevel degenerative changes with resultant multifocal spinal canal and neuroforaminal narrowing. Most pronounced at L4-L5 where there is resultant moderate canal stenosis and moderate bilateral neuroforaminal
narrowing
PT OT recommends SNF
Influenza A
Tamiflu x 5
Droplet precaution
#MEG
#Chronic HFpEF
#Mobid obesity
#BPH
#b/l LE venous insufficiecny with chronic b/l LE venous ulvcers and lymphedema
#GERD
#BRIAN
#Essential HTN
Wound care
COnt home emds
advise to decrease calorie intake
#Mild leukopenia
2/2 viral disease
follow as oputpatient with PCP
#Recent L TKA
Well healing scar, no redness or swelling
DVT ppx lovenox
Full code
PT recommending retirement facility. I also would recommend this as he has barely able to ambulate/stand. He is physically deconditioned secondary to acute viral syndrome and flu. He is a fall risk and would strongly benefit from rehab
Anticipated Discharge: 24 - 48 hours
Subjective/Interval History
-
Date of Service: April 13, 2024
Seen and examined. No new complaints. No acute overnight events
Objective Data
-
Vital Signs:
Vital Signs
Temp Pulse Resp BP Pulse Ox
98.6 F 79 24 146/70 93
04/13/24 07:05 04/13/24 08:13 04/13/24 07:05 04/13/24 08:13 04/13/24 08:15
I&O
04/12/24 04/13/24 04/14/24
06:59 06:59 06:59
Intake Total 1245 / 1245 1050 / 1050
Output Total 1950 / 1950 1175 / 1175
Balance -705 / -705 -125 / -125
[2024-04-13 17:03] VITALS: BP 118/63
[2024-04-13] MEDS: LOVENOX 40 MG SC (18:00)
[2024-04-13] MEDS: FLOMAX 0.4 MG PO (21:14)
[2024-04-13 23:15] VITALS: BP 108/76
[2024-04-14 03:00] VITALS: BP 110/72
[2024-04-14 03:15] VITALS: BP 110/72
[2024-04-14 06:00] VITALS: BMI 44.4
[2024-04-14 07:10] VITALS: BP 152/83
[2024-04-14] MEDS: DESENEX/MITRAZOL/ZEASORB 1 APPLIC TOPICAL ×2 (08:11→21:13)
[2024-04-14] MEDS: ZESTRIL 20 MG PO (08:12)
[2024-04-14] MEDS: VITAMIN C 500 MG PO ×2 (08:12→21:12)
[2024-04-14] MEDS: LOW STRENGTH ASPIRIN 81 MG PO (08:12)
[2024-04-14] MEDS: FEOSOL 325 MG PO ×2 (08:12→21:12)
[2024-04-14] MEDS: VITAMIN D3 (cholecalciferol) 25 MCG PO (08:12)
[2024-04-14] MEDS: LASIX 20 MG PO ×2 (08:12→21:12)
[2024-04-14] MEDS: HYDROPHOR 1 APPLIC TOPICAL (08:12)
--- NOTE | 2024-04-14 11:31 | CM ---
Addendum entered by Minnie Lyons 04/14/24 15:29:
Sp[facility] with [facility] from [facility] - can accept
Fax - [phone]
Original Note:
Referral sent in [facility] for HH needs - RN/PT/OT
No response noted
Called [facility] [phone], LM on - new referral for HH needs - left call back number, requested return call
--- NOTE | 2024-04-14 12:20 | W.PN.HOSP.TC ---
Today's Communication/Plan
-
Case management to continue to look for SNF placement. Physical therapy continues to recommend SNF versus home PT
He states that if unable to get SNF placement by tomorrow then he would like to be discharged home tomorrow after receiving additional day of physical therapy as this has been helping him
Assessment / Plan
Assessment / Plan
NAD
Scleral Anicteric
MMM
No JVD
CTABL
RRR, S1/S2
Obese, soft, NT, ND, BS+
Warm, Dry, chronic venous stasis change
AAOx3
Bilateral lower extremity weakness which is likely secondary to influenza A/viral disease and chronic sciatica
Lumbar spine MRI mild to moderate multilevel degenerative changes with resultant multifocal spinal canal and neuroforaminal narrowing. Most pronounced at L4-L5 where there is resultant moderate canal stenosis and moderate bilateral neuroforaminal
narrowing
PT OT recommends SNF
Influenza A
Tamiflu x 5
Droplet precaution
#MEG
#Chronic HFpEF
#Mobid obesity
#BPH
#b/l LE venous insufficiecny with chronic b/l LE venous ulvcers and lymphedema
#GERD
#BRIAN
#Essential HTN
Wound care
COnt home emds
advise to decrease calorie intake
#Mild leukopenia
2/2 viral disease
follow as oputpatient with PCP
#Recent L TKA
Well healing scar, no redness or swelling
DVT ppx lovenox
Full code
PT recommending custodial facility. I also would recommend this as he has barely able to ambulate/stand. He is physically deconditioned secondary to acute viral syndrome and flu. He is a fall risk and would strongly benefit from rehab
Anticipated Discharge: Within 24 hours
Subjective/Interval History
-
Date of Service: April 14, 2024
Seen and examined. Awaiting SNF bed placement. States if he is not able to get a SNF bed by tomorrow then he would like to be discharged home with his regular home PT personnel and wound care personnel
Objective Data
-
Vital Signs:
Vital Signs
Temp Pulse Resp BP Pulse Ox
98.5 F 92 16 152/83 94
04/14/24 07:10 04/14/24 07:10 04/14/24 07:10 04/14/24 07:10 04/14/24 07:10
I&O
04/13/24 04/14/24 04/15/24
06:59 06:59 06:59
Intake Total 1050 / 1050 1480 / 1480
Output Total 1175 / 1175 1420 / 1420
Balance -125 / -125 60 / 60
[2024-04-14 15:15] VITALS: BP 110/72
[2024-04-14] MEDS: LOVENOX 40 MG SC (17:28)
[2024-04-14] MEDS: FLOMAX 0.4 MG PO (21:12)
[2024-04-14 23:49] VITALS: BP 145/82
[2024-04-15 05:56] VITALS: BMI 44.4
[2024-04-15 07:05] VITALS: BP 145/80
[2024-04-15] MEDS: LASIX 20 MG PO (08:05)
[2024-04-15] MEDS: VITAMIN D3 (cholecalciferol) 25 MCG PO (08:05)
[2024-04-15] MEDS: ZESTRIL 20 MG PO (08:05)
[2024-04-15] MEDS: FEOSOL 325 MG PO (08:05)
[2024-04-15] MEDS: VITAMIN C 500 MG PO (08:05)
[2024-04-15] MEDS: LOW STRENGTH ASPIRIN 81 MG PO (08:05)
[2024-04-15] MEDS: DESENEX/MITRAZOL/ZEASORB 1 APPLIC TOPICAL (08:12)
[2024-04-15] MEDS: HYDROPHOR 1 APPLIC TOPICAL (08:12)
--- NOTE | 2024-04-15 10:00 | PTCARENOTE ---
pt oob to the chair with heavy x1 assist. sits on commode above the toilet and uses urinal. pt dribbles at times with urination as well. pt complete bed bath in bathroom, wound care complete and legs re-wrapped with fresh martha wraps. pt asking for
stool softener but had moderate soft/loose bm this morning. will discuss with MD. good appetite. no complaints at this time.
--- NOTE | 2024-04-15 11:39 | W.DCSUMMARY ---
Addendum entered and electronically signed by Lenny Vasquez MD 04/15/24 11:43:
More than 30 minutes spent in discharge including
Final examination of the patient
Summarizing hospital stay
Instructions for continuing care to all relevant caregivers
Preparation of discharge records, prescriptions, and referral forms
Total time spent (in minutes): 33mins
Original Note:
Discharge Summary
Discharge Data
Date of Admission: 04/11/24
Date of Discharge: 04/15/24
-
Pending Results: No
Hospital Course
73y M with PMH significant for chronic lymphedema / chronic LE wounds and morbid obesity
Presented with ambulatory dysfunction, weakness, cough and fall at home. Found to be flu A+ and started on Tamiflu. Evaluated by physical therapy initially recommended SNF however made clinical improvement and eventually recommended home PT versus
SNF.
Additionally due to the bilateral lower extremity weakness lumbar spine was obtained that demonstrated mild to moderate multilevel degenerative changes with resultant multifocal spinal canal and neuroforaminal narrowing. Most pronounced at L4-L5
where there is resultant moderate canal stenosis and moderate bilateral neuroforaminal narrowing. Outpatient spine surgery follow-up
MRI _L-Spine
IMPRESSION:
There is grade 1 anterolisthesis of L4 on L5 with multilevel degenerative changes with resultant multifocal spinal canal and neuroforaminal narrowing. Findings most pronounced at L4-L5 where there is resultant moderate canal stenosis and moderate
bilateral neuroforaminal narrowing.
CXR
IMPRESSION:
1. Low lung volumes.
2. Grossly clear lungs.
Seen on the day of discharge
See that he was to go home today and early afternoon. Feeling much better. Ideally wants to be seen by physical therapy prior to discharge. He will make sure that home physical therapy has been set up.
NAD, sitting in bedside chair
Scleral Anicteric
CTABL
RRR, S1/S2
Obese, soft, NT, ND, BS+
Warm, Dry
AAOx3
Discharge Plan
-
Patient Disposition: Home with Home Care
Discharge Diagnosis/Procedures: Flu A
Lumbar stenosis - Moderate
Diet: As tolerated
Activity: As tolerated
Driving Restrictions: No driving
Activity Restrictions/Additional Instructions:
Presented with weakness cough and fall at home that was related to the right leg giving out. Found to have influenza A. Started on Tamiflu. Therefore, due to the fall and right leg giving out MRI lumbar spine was obtained which demonstrated L4-L5
multilevel degenerative changes and canal stenosis.Seen by PT rec for SNF. Will DC home with home care.
Will need to see pcp and spine surgery as an outpatient.
MRI L-Spine
IMPRESSION:
There is grade 1 anterolisthesis of L4 on L5 with multilevel degenerative changes with resultant multifocal spinal canal and neuroforaminal narrowing. Findings most pronounced at L4-L5 where there is resultant moderate canal stenosis and moderate
bilateral neuroforaminal narrowing.
Wound Care Instructions
Lower legs: wash legs with soap and water.
to open ulcers, adaptic, abd pad and divya daily and prn drainage or resume previous dressings
mineral oil or Eucerin to both legs and feet daily
Med wraps knee high daily until can resume Coban double layer wraps.
continue lymphedema pumps daily
leg elevation when sitting
Referrals:
Paty Mills CRNP [Family Provider] -
Prescriptions:
New
miconazole nitrate [Miconazorb AF] 2 % Powder
1 applic topical BID Qty: 85 0RF
white petrolatum [Hydrophor] 42 % Ointment
1 applic topical DAILY Qty: 100 0RF
Continued
ascorbic acid (vitamin C) [Vitamin C] 500 MG tablet
500 mg PO BID
ferrous sulfate [FeroSul] 325 MG tablet
325 mg PO BID
furosemide 20 MG tablet
20 mg PO BID
tamsulosin 0.4 MG capsule
0.4 mg PO HS
glucosamine sulfate [Glucosamine] 500 mg Tablet
500 mg PO HS
aspirin 81 mg Tablet,Chewable
81 mg PO DAILY
cholecalciferol (vitamin D3) 25 mcg (1,000 unit) Tablet
20 mcg PO DAILY
tadalafil 5 mg tablet
5 mg PO DAILYPRN PRN (Reason: ED)
lisinopril 20 mg Tablet
20 mg PO DAILY
cyanocobalamin (vitamin B-12) 1,000 mcg Tablet
1,000 mcg PO DAILY
docusate sodium [Stool Softener] 100 mg Capsule
100 mg PO PRN PRN (Reason: Constipation )
Discharge Orders:
Discharge Patient (As Directed); Ordered 04/15/24
Ordered By: Lenny Vasquez
Discharge Date and Time
Print Language: GRENADIAN
--- NOTE | 2024-04-15 11:44 | CM ---
Pt for discharge today
Pt prefers to go home. [facility] to follow. Family available to assist at home
Son to transport home
Given IMM
Plan - home with [facility]
Fax - [phone]
[2024-04-15 15:05] VITALS: BP 109/55
== END 2024-04-15 17:36 | disposition home health service (06) | DRG 194 ==
LOC: 2 NORTH 12:02
PROVIDERS: Internal Medicine; Physician Assistant; ADMITTING PHYSICIAN Hospitalist; ATTENDING PHYSICIAN Hospitalist; EMERGENCY PHYSICIAN Emergency Medicine; FAMILY PHYSICIAN Nurse Practitioner Adult Health
DX: J10.1 Influenza due to other identified influenza virus with other respiratory manifestations (principal); I50.32 Chronic diastolic (congestive) heart failure; L97.919 Non-pressure chronic ulcer of unspecified part of right lower leg with unspecified severity; Z68.41 Body mass index [BMI] 40.0-44.9, adult; E66.01 Morbid (severe) obesity due to excess calories; I89.0 Lymphedema, not elsewhere classified; W19.XXXA Unspecified fall, initial encounter; M43.16 Spondylolisthesis, lumbar region; M48.061 Spinal stenosis, lumbar region without neurogenic claudication; K59.00 Constipation, unspecified; I87.2 Venous insufficiency (chronic) (peripheral); G47.33 Obstructive sleep apnea (adult) (pediatric); Z96.652 Presence of left artificial knee joint; Z80.3 Family history of malignant neoplasm of breast; Z79.82 Long term (current) use of aspirin; D64.9 Anemia, unspecified; I11.0 Hypertensive heart disease with heart failure; K21.9 Gastro-esophageal reflux disease without esophagitis; N40.0 Benign prostatic hyperplasia without lower urinary tract symptoms; I87.8 Other specified disorders of veins; I73.9 Peripheral vascular disease, unspecified; Z11.52 Encounter for screening for COVID-19
CPT/HCPCS: 71046; 72158; 80048; 80053; 81003; 81015; 82550; 83605; 84484; 85025; 85027; 87070; 87086; 87502; 87811; 93005; 94640; 96374; 97116; 97161; 97167; 97530; 97535; 99285; A9585

== ENCOUNTER → 2024-05-16 13:09 | Outpatient (REF) | payer MEDICARE, OTHER, SELFPAY | LOC: RAD 13:09 | PROVIDERS: FAMILY PHYSICIAN Nurse Practitioner Adult Health | DX: L97.929 Non-pressure chronic ulcer of unspecified part of left lower leg with unspecified severity (principal); I80.03 Phlebitis and thrombophlebitis of superficial vessels of lower extremities, bilateral | CPT/HCPCS: 93970 ==

== ENCOUNTER → 2024-06-19 09:17 | Outpatient (REF) | payer MEDICARE, OTHER, SELFPAY ==
[2024-06-19 10:23] LABS: % Basophils 0.5 % (0-2); % Eosinophils 2.9 % (0-6); % Immature Granulocytes 0.4 % (0-0.5); % Lymphocytes 10.1 % (20.5-51.1); % Monocytes 5.8 % (1.7-9.3); % Neutrophils 80.3 % (42.2-75.2); Absolute Eosinophils 0.2 10^3/uL (0-0.7); Absolute Lymphocytes 0.8 10^3/uL (1.2-3.4); Absolute Monocytes 0.5 10^3/uL (0.1-0.6); Absolute Neutrophils 6.3 10^3/uL (1.4-6.5); Hematocrit 37.7 % (39.0-52.0); Hemoglobin 11.5 g/dL (13.0-18.0); Mean Corp Hgb Conc. 30.5 g/dL (33.0-37.0); Mean Corpuscular Hgb 25.4 pg (27.0-31.0); Mean Corpuscular Volume 83.2 fL (80.0-94.0); Mean Platelet Volume 9.4 fL (7.4-10.4); Nucleated Red Blood Cells % 0 % (-); Platelet Count 256 10^3/uL (130-400); Red Blood Cell Count 4.53 10^6/uL (4.70-6.10); Red Cell Dist. Width 14.7 % (11.5-14.5); White Blood Cell Count 7.8 10^3/uL (4.8-10.8)
[2024-06-19 10:52] LABS: ALT (SGPT) 11 U/L (0-50); AST (SGOT) 12 U/L (17-59); Albumin 4.4 g/dl (3.5-5.0); Alkaline Phosphatase 68 U/L (38-126); Blood Urea Nitrogen 38 mg/dl (9-20); Calcium 9.4 mg/dl (8.4-10.2); Carbon Dioxide 28 mmol/L (22-30); Glucose 119 mg/dl (70-99); Total Bilirubin 0.6 mg/dl (0.2-1.3); Total Protein 7.4 g/dl (6.3-8.2); eGFR > 60.00
[2024-06-19 10:58] LABS: Chloride 100 mmol/L (98-107); Potassium 4.7 mmol/L (3.5-5.1); Sodium 138 mmol/L (135-145)
[2024-06-19 11:02] LABS: Erythrocyte Sed Rate 50 mm/hour (0-20)
[2024-06-19 12:24] LABS: Hepatitis B Surface Antigen Negative (Negative)
[2024-06-19 12:42] LABS: Hepatitis B Core Ab, Total Negative (Negative); Hepatitis C Antibody Negative (Negative)
[2024-06-21 23:45] LABS: Quantiferon Mitogen minus NIL 9.96 IU/mL; Quantiferon NIL 0.04 IU/mL; Quantiferon TB Gold Plus Negative (Negative)
== END ==
LOC: REG 09:17
PROVIDERS: ATTENDING PHYSICIAN Student in an Organized Health Care Education/Training Program; FAMILY PHYSICIAN Nurse Practitioner Adult Health
DX: T14.8XXA Other injury of unspecified body region, initial encounter (principal); D84.9 Immunodeficiency, unspecified; L12.0 Bullous pemphigoid; Z11.1 Encounter for screening for respiratory tuberculosis; Z11.59 Encounter for screening for other viral diseases
CPT/HCPCS: 36415; 80053; 85025; 85652; 86140; 86480; 86704; 86803; 87040; 87340

== ENCOUNTER → 2024-07-13 08:06 | Outpatient (REF) | payer MEDICARE, OTHER, SELFPAY | LOC: WOUND 08:06 | PROVIDERS: ATTENDING PHYSICIAN Surgery; FAMILY PHYSICIAN Nurse Practitioner Adult Health | DX: I87.313 Chronic venous hypertension (idiopathic) with ulcer of bilateral lower extremity (principal); L97.212 Non-pressure chronic ulcer of right calf with fat layer exposed; L97.222 Non-pressure chronic ulcer of left calf with fat layer exposed; I73.9 Peripheral vascular disease, unspecified; I10 Essential (primary) hypertension | CPT/HCPCS: 29581; 99214 ==

== ENCOUNTER 2024-07-23 12:13 | Inpatient (IN) | payer MEDICARE, OTHER, SELFPAY ==
[2024-07-23 08:53] VITALS: BP 123/74
--- NOTE | 2024-07-23 09:05 | ED.GENMED ---
History of Present Illness
General
Chief Complaint: Skin Problem
Time Seen by Provider: 07/23/24 09:05
History of Present Illness
History of Present Illness:
TIME OF INITIAL ENCOUNTER: 9:10 AM
HPI:
The patient is a 74-year-old male who presented with a history of worsening pain in both legs, with the right leg being more severely affected. The patient has a known history of venous stasis changes in the legs, leading to painful and discolored
skin. The patient has not experienced an acute worsening but describes the pain as worsening, particularly upon dressing changes. There have been no recent changes in overall symptoms, other than the persistent pain and venous stasis discoloration.
The patients primary care physician referred him to the emergency department for further evaluation and possible intravenous antibiotic therapy due to suspected infection. The primary care office applied non-adherent dressings earlier today but did
not perform any cultures or apply special medications to the wounds. The patient denies additional symptoms such as fever, chest pain, headaches, or abdominal pain. No prior antibiotic treatment has been administered.
The patient reports significant discomfort during dressing changes and expressed a need for pain management, preferring stronger analgesics due to inadequate relief from previously used medications like Vicodin.
EXAM:
GENERAL: Well appearing in no distress
HEENT: Moist oral mucosa
CARDIOVASCULAR: No murmurs, borderline heart rate, regular rhythm, No chest wall tenderness
PULMONARY: No respiratory distress, breath sounds are clear and equal
ABDOMEN: Soft with no peritoneal signs, no tenderness
NEUROLOGIC: Excellent strength all extremities, no coordination deficits
PSYCHIATRIC: Appropriate mental status, normal insight and judgement
EXTREMITIES: Venous stasis both lower extremities, diffuse tenderness to palpation
SKIN: Some ulcerative lesions noted right lower extremity with tenderness
NUMBER AND COMPLEXITY OF PROBLEMS ADDRESSED AT THE ENCOUNTER
� Chronic conditions affecting care: Venous stasis
� Acute Exacerbation and/or Progression of Chronic Illness: This is an acute worsening of chronic problem
� Differential Diagnosis includes:
1. Cellulitis
2. Venous ulcer with secondary infection
3. Deep vein thrombosis
4. Arterial insufficiency
5. Chronic venous insufficiency
6. Peripheral neuropathy
7. Lymphedema
8. Erysipelas
9. Contact dermatitis
10. Autoimmune vasculitis
AMOUNT AND/OR COMPLEXITY OF DATA TO BE REVIEWED AND ANALYZED
� I performed an independent evaluation of and my interpretation is:
EKG:
CT:
X-rays:
Laboratory Studies: White blood cell count normal, lactic normal
Other:
� Review of other/old records: The patient was admitted with worsening chronic lower extremity edema and was also found to be positive for the flu
� Clinical information was obtained by an independent historian:
� Prescriptions/Medications Considered but not given:
� Further testing considered but not performed:
RISK OF COMPLICATIONS AND/OR MORBIDITY OR MORTALITY OF PATIENT MANAGEMENT
� Social determinants of health affecting care: Lives at home
� Discussion with other providers: I spoke to Dr. Ordaz to send patient in for IV antibiotics. Dr. Garner for admission.
� Escalation of care including admission/observation vs risk of discharge considered:
ANY OTHER UPDATES:
- Initiate intravenous antibiotic therapy as per the referral from Dr. Ordaz, wound care
- Consideration for narcotic (such as Dilaudid) for acute pain management via intravenous route as per patients tolerance and request�1 dose given in ED.
- Conduct blood work to aid in diagnosis and management.
Past History
Past History
ED Past Medical History: GERD, HTN, Other (Obesity, PNA, Cellulitis, Sleep Apea) and Other (Peripheral vascular disease, venous stasis ulcer)
ED Past Surgical History: Appendectomy and Tonsilectomy
Social History
Tobacco: Non-smoker
Alcohol: None
Drug: None
Personal:
Living: with family
Employment: Employed
Family History
Family History: Other (Noncontributory)
Phy Exam
Physical Exam
Physical Exam:
See HPI
Course
Orders/Labs/Results
Orders:
Orders
07/23/24 09:16
HYDROmorphone [Dilaudid] 1 mg IV NOW STA
Ondansetron Injectable [Zofran] 4 mg IV NOW STA
Piperacillin/Tazo 3.375 Gram [Zosyn] 3.375 gram in 50 ml IV NOW
07/23/24 09:23
Complete Blood Count/With Diff Urgent
Comprehensive Metabolic Panel Urgent
Lactic Acid Q4H
Comment: CANCEL 2nd LACTIC ACID IF 1st LACTIC ACID IS LESS THAN 2
Blood Culture Q30M
JOSUÉ Source: Blood/Venous
Specimen Description:
Blood Culture Q30M
JOSUÉ Source: Blood/Venous
Specimen Description:
07/23/24 09:31
Vancomycin [Vancocin] 2,000 mg 0.9% Sodium Chloride 500 ml [Nss] 500 ml IV NOW
07/23/24 11:59
Admit/Transfer Patient As Directed
Co-Sign Provider:
Level of Care: Inpatient admission
Assign to:: Medical/Surgical
Physician / Group: [facility]
Diagnosis: Right lower extremity open wounds with infection and cellulitis
Reason for Hospitalization: See progress note
Expected length of stay greater than two midnights?: Yes
ELOS- Estimated Length of Stay in days: 3
I certify the patient meets the requirements for IP care: Yes
PRN Pain Medication Management As Directed
May give lesser potent ordered pain med per pt: Yes
preference::
Protocol:: Medication orders for pain may be administered in a
manner that supports deferring to patient preference
when the pt is:
- Requesting an ordered lesser potent pain medication.
Least to most potent pain medications are defined
as: acetaminophen < NSAID < tramadol < opioids
(morphine, oxycodone, hydromorphone).
- Requesting a lesser dose of the same medication IF
ORDERED.
- Requesting a less intrusive route of administration
if both routes are prescribed by the provider (PO <
IV).
07/23/24 12:03
Code Status As Directed
Resuscitation Status: Full Code
07/23/24 13:30
Lactic Acid Q4H
Comment: CANCEL 2nd LACTIC ACID IF 1st LACTIC ACID IS LESS THAN 2
Abnormal Lab Results
07/23/24
09:23
RBC 4.50 L 10^6/uL
(4.70-6.10)
Hgb 11.2 L g/dL
(13.0-18.0)
Hct 37.0 L %
(39.0-52.0)
MCH 24.9 L pg
(27.0-31.0)
MCHC 30.3 L g/dL
(33.0-37.0)
RDW 15.4 H %
(11.5-14.5)
Absolute Lymphs (auto) 0.7 L 10^3/uL
(1.2-3.4)
Neutrophils % 77.0 H %
(42.2-75.2)
Lymphocytes % 10.5 L %
(20.5-51.1)
BUN 45 H mg/dl
(9-20)
Glucose 129 H mg/dl
(70-99)
AST 13 L U/L
(17-59)
07/23/24 09:23
07/23/24 09:23
Vital Signs
Initial and Last Documented VS:
Initial Vital Signs
Temp Pulse Resp BP Pulse Ox
37.1 C 100 16 123/74 99
07/23/24 08:53 07/23/24 08:53 07/23/24 08:53 07/23/24 08:53 07/23/24 08:53
Last Documented Vital Signs
Temp Pulse Resp BP Pulse Ox
37.1 C 80 20 128/77 98
07/23/24 08:53 07/23/24 11:14 07/23/24 11:14 07/23/24 11:14 07/23/24 11:14
*Critical Care Note
Total Time (30-74mins, 75-104mins- exclusive of procedures): Not Applicable
ED Attending Note
-
Portions of this chart may have been created with voice recognition software.� Occasional wrong word or��sound alike� substitutions may have occurred due to the inherent limitations of voice recognition software.
Discharge Plan
Departure
Patient Disposition: Admit
Date of Disposition: 07/23/24
Time of Disposition: 10:29
Presentation/result/management discussed w/ accepting MD/DO: Hospitalist
Patient with high blood pressure during this ER visit?: Yes
Discharge Problem:
Infected stasis ulcer
Interventions
Interventions:
*Risk Screen - Suicide Last Done: 07/23/24 08:54
*General Assessment Last Done: 07/23/24 08:54
*Neglect/Abuse Screening Last Done: 07/23/24 08:54
ED-Skin Assessment Last Done: 07/23/24 09:32
[2024-07-23 09:14] VITALS: BMI 41.9
[2024-07-23] MEDS: ZOSYN 50 IV ×3 (09:26→22:17)
[2024-07-23] MEDS: ZOFRAN 4 MG IV (09:26)
[2024-07-23] MEDS: DILAUDID 1 MG IV (09:26)
[2024-07-23 09:36] LABS: % Basophils 0.7 % (0-2); % Eosinophils 2.6 % (0-6); % Immature Granulocytes 0.4 % (0-0.5); % Lymphocytes 10.5 % (20.5-51.1); % Monocytes 8.8 % (1.7-9.3); Absolute Basophils 0.1 10^3/uL (0-0.2); Absolute Eosinophils 0.2 10^3/uL (0-0.7); Absolute Lymphocytes 0.7 10^3/uL (1.2-3.4); Absolute Monocytes 0.6 10^3/uL (0.1-0.6); Absolute Neutrophils 5.3 10^3/uL (1.4-6.5); Hemoglobin 11.2 g/dL (13.0-18.0); Mean Corp Hgb Conc. 30.3 g/dL (33.0-37.0); Mean Corpuscular Hgb 24.9 pg (27.0-31.0); Mean Corpuscular Volume 82.2 fL (80.0-94.0); Mean Platelet Volume 9.1 fL (7.4-10.4); Nucleated Red Blood Cells % 0 % (-); Platelet Count 268 10^3/uL (130-400); Red Cell Dist. Width 15.4 % (11.5-14.5); White Blood Cell Count 6.9 10^3/uL (4.8-10.8)
[2024-07-23] MEDS: VANCOCIN 540 MG IV (10:00)
[2024-07-23 10:04] LABS: ALT (SGPT) 10 U/L (0-50); AST (SGOT) 13 U/L (17-59); Albumin 3.7 g/dl (3.5-5.0); Alkaline Phosphatase 66 U/L (38-126); Blood Urea Nitrogen 45 mg/dl (9-20); Calcium 9.4 mg/dl (8.4-10.2); Carbon Dioxide 27 mmol/L (22-30); Chloride 104 mmol/L (98-107); Estimated Creatinine Clearance > 125 ml/min; Glucose 129 mg/dl (70-99); Potassium 5.1 mmol/L (3.5-5.1); Sodium 138 mmol/L (135-145); Total Bilirubin 0.4 mg/dl (0.2-1.3); Total Protein 6.7 g/dl (6.3-8.2); eGFR > 60.00
[2024-07-23 11:14] VITALS: BP 128/77
--- NOTE | 2024-07-23 12:07 | HPS.HSE ---
Family Physician
-
Family Physician: Paty Mills
Chief Complaint
-
Right leg pain, open wounds
History of Present Illness
Patient referred from wound care center for evaluation of his righ leg infected wounds for IV antibiotics.
Patient states he is got a chronic lymphedema bilateral lower extremities and has had on and off wounds and infection.
The current issue started a month ago he started to have open wounds in the right leg and he was getting wound care at home. He lives in the in-law suite of her daughter's house. He was then referred to wound care center and has been getting care
for the last 2 weeks. Wound care doctor was concerned that it is not healing and infected so sent to the ER for evaluation.
Pain in the right leg especially posterior calf is been an issue which is new.
Denies any peripheral arterial disease. Denies any diabetes. Denies any antibiotics use in the last month or in fact in the last 3 months. Not allergic to any antibiotics.
No associated fever or chills with this.
No nausea vomiting.
Denies any new medical issues. No new medication changes. Follows with primary doctor and clinical specialist.
Medical History
Past Medical History
Past Medical History: Reports Other
Additional Past Medical History:
Chronic Venous Stasis / Venous Insufficiency
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
Morbid Obesity
Hypertension
MEG not Currently on CPAP
Past Surgical History: Reports Other
Additional Past Surgical History:
Left TKA (2 weeks ago)
RLE Vein Stripping
Appendectomy
Social History
Tobacco: Non-smoker
Alcohol: None
Drug: None
Family History
Family History: Not pertinent and Other (Mother: Breast Cancer)
Allergies / Home Medications
Allergies reflects when Allergies were last updated in [facility].
Home Medications with original date entered in [facility]
Allergy/Medication List:
Allergies
Allergy/AdvReac Type Severity Reaction Status Date / Time
No Known Allergies Allergy Verified 12/28/23 17:49
Home Medications
ascorbic acid (vitamin C) 500 mg tablet (Vitamin C) 500 mg PO BID Supplement 02/21/18
ferrous sulfate 325 mg (65 mg iron) tablet (FeroSul) 325 mg PO BID Supplement 02/21/18
furosemide 20 mg tablet 20 mg PO BID Fluid retention/Swelling 02/21/18
tamsulosin 0.4 mg capsule 0.4 mg PO HS Urinary issue 02/21/18
aspirin 81 mg chewable tablet 81 mg PO DAILY Blood clot prevention/tx 12/07/21
cholecalciferol (vitamin D3) 25 mcg (1,000 unit) tablet 20 mcg PO DAILY Supplement 12/07/21
glucosamine sulfate 500 mg tablet (Glucosamine) 500 mg PO HS Supplement 12/07/21
tadalafil 5 mg tablet 5 mg PO DAILYPRN PRN ED 06/14/23
cyanocobalamin (vitamin B-12) 1,000 mcg tablet 1,000 mcg PO DAILY Supplement 12/28/23
docusate sodium 100 mg capsule (Stool Softener) 100 mg PO PRN PRN Constipation 12/28/23
lisinopril 20 mg tablet 20 mg PO DAILY Blood Pressure 12/28/23
Review of Systems
-
A 12 point ROS was completed and negative except as noted: Yes
Physical Exam
Vital Signs
Vital Signs
Temp Pulse Resp BP Pulse Ox
98.8 F 80 20 128/77 98
07/23/24 08:53 07/23/24 11:14 07/23/24 11:14 07/23/24 11:14 07/23/24 11:14
Physical Exam
General: Comfortable
HEENT: Moist mucous membranes
Respiratory: Clear
Cardiac: S1/S2 and Regular Rhythm; No Tachycardia
GI: Soft, Non Tender and Other (Obese)
Musculoskeletal: Edema, Left Lower Extremity and Edema, Right Lower Extremity (Bilateral legs and dressing. Patient says they are just dressed and very painful with dress changes. He also told me that pictures were taken. Will review the
pictures. Bilateral dorsalis pedis present. Chronic dermatitis changes noted in the visible parts of the leg. )
Neuro: AO x 3
Psych: Calm
Laboratory Results
-
07/23/24 09:23
07/23/24 09:
Laboratory Results
Lactic Acid 1.0 mmol/L (0.7-2.0) 07/23/24:
Total Bilirubin 0.4 mg/dl (0.2-1.3) 07/23/24:
AST 13 U/L (17-59) L 07/23/24:
ALT 10 U/L (0-50) 07/23/24:
Alkaline Phosphatase 66 U/L (38-126) 07/23/24 09:
Data Reviewed
-
Lab Data: Labs Reviewed by me
Impression/Plan
-
Right leg open wounds with infection and cellulitis
Chronic bilateral venous stasis.
History of right lower extremity vein stripping
History of prior lower extremity edema with infection.
Patient has been having progressive wounds which are not healing currently under the care of wound care center. Patient not improving. Not systemically toxic but with extent of involvement of the legs and his comorbidities of chronic lymphedema
would benefit intravenous antibiotics. Last culture data from end 2023 shows Pseudomonas and MSSA in the wound culture. No MRSA was noted on the screen.
Started on IV Zosyn. Repeat wound cultures. Consult wound care team.
Follow for clinical improvement.
Obtain ultrasound of the legs to rule out any DVT.
Has got good dorsalis pedis pulsation in both the feet.
History of chronic lymphedema
Continue with his Bumex
Hypertension-continue with his present medication lisinopril
Full code
[2024-07-23 13:51] VITALS: BP 126/68
[2024-07-23] MEDS: BUMEX 0.5 MG PO (15:14)
[2024-07-23] MEDS: FEOSOL 325 MG PO ×2 (15:15→20:28)
[2024-07-23] MEDS: LOW STRENGTH ASPIRIN 81 MG PO (15:15)
[2024-07-23] MEDS: ZESTRIL 20 MG PO (15:15)
[2024-07-23] MEDS: NEURONTIN 100 MG PO ×2 (15:15→22:16)
--- NOTE | 2024-07-23 15:32 | WOUNDNOTE ---
HIEN RN note: Patient admitted with infected ulcer on legs, sent from wound center.
See H&P for complete history. Lives at home with Son and family.
PMH: Obesity, HTN, chronic R&L lower leg venous stasis ulcers, RLE vein stripping, appendectomy, B/L lymphedema of legs, R knee replacement 2022 and L knee replacement February 2024.
Wound Location and type/assessment: Patient known to service, last seen 04/09/24 for chronic B/L leg venous stasis ulcers. Reviewed current wound care with wound center nurse, absorbant dressing and Coflex wrap for compression. Nurse Jovita reports
she is still waiting for pain medication from pharmacy. Patient having allot of pain from wounds when dressings changed, patient requested wound nurse see him tomorrow. Dressings intact some drainage coming through R leg wound. Legs and feet warm
with dry flaky skin.
Appetite:Good
Pressure redistribution devices in place: Accumax, ambulates with walker. pillow under calves.
Plan: Instructed nurse when assessing leg wounds after pain medication given can use adaptic, abd pad and kerlix daily and prn drainage. Can add alginate over adaptic for increased drainage. Will order mineral oil to start tomorrow. Recommend
compression with martha wraps knee high if ultrasound of legs negative for DVT. Will confirm orders with hospitalist, update care plan and follow tomorrow.
Note to case management requested for discharge: VN to continue for wound care.
Patient to follow up at wound care center upon discharge if not healing.
[2024-07-23 15:50] VITALS: BP 130/71
--- NOTE | 2024-07-23 15:56 | PTCARENOTE ---
Pt arrived to 3rd floor from ED at 1400. Pt was assessed and given drink. Pt at bed with son at bedside with no current complaints. Plan of care ongoing.
[2024-07-23] MEDS: NORCO 5/325 1 TABLET PO ×2 (16:14→22:22)
[2024-07-23] MEDS: LOVENOX 40 MG SC (17:29)
[2024-07-23] MEDS: DESENEX/MITRAZOL/ZEASORB 1 APPLIC TOPICAL (20:28)
[2024-07-23] MEDS: VITAMIN C 500 MG PO (20:34)
[2024-07-23] MEDS: NEURONTIN 300 MG PO (22:16)
[2024-07-23 23:00] VITALS: BP 108/59
--- NOTE | 2024-07-24 00:37 | PTCARENOTE ---
patient was offered oral care, but he explained that it is his routine to brush his teeth in the morning and refused care.
[2024-07-24] MEDS: DILAUDID 0.5 MG IV (01:20)
[2024-07-24] MEDS: ZOSYN 50 IV ×4 (03:56→21:13)
[2024-07-24 08:02] VITALS: BP 135/79
[2024-07-24] MEDS: BUMEX 0.5 MG PO ×2 (08:52→16:32)
[2024-07-24] MEDS: VITAMIN C 500 MG PO ×2 (08:52→19:36)
[2024-07-24] MEDS: VITAMIN D3 (cholecalciferol) 20 MCG PO (08:52)
[2024-07-24] MEDS: LOW STRENGTH ASPIRIN 81 MG PO (08:53)
[2024-07-24] MEDS: HYDROPHOR 1 APPLIC TOPICAL (08:53)
[2024-07-24] MEDS: FEOSOL 325 MG PO ×2 (08:53→19:36)
[2024-07-24] MEDS: VITAMIN B-12 1000 MCG PO (08:53)
[2024-07-24] MEDS: NEURONTIN 100 MG PO ×3 (08:53→21:13)
[2024-07-24] MEDS: ZESTRIL 20 MG PO (08:53)
[2024-07-24] MEDS: DESENEX/MITRAZOL/ZEASORB 1 APPLIC TOPICAL ×2 (08:53→19:36)
[2024-07-24] MEDS: DILAUDID 0.25 MG IV (09:00)
[2024-07-24 10:45] VITALS: BMI 41.9
--- NOTE | 2024-07-24 11:12 | WOUNDNOTE ---
R LATERAL POSTERIOR LOWER LEG
--- NOTE | 2024-07-24 11:13 | WOUNDNOTE ---
L POSTERIOR LOWER LEG
--- NOTE | 2024-07-24 11:14 | WOUNDNOTE ---
R LATERAL LOWER LEG
--- NOTE | 2024-07-24 11:15 | WOUNDNOTE ---
GLUTEAL CLEFT AND PROXIMAL POSTERIOR THIGHS
--- NOTE | 2024-07-24 11:19 | WOUNDNOTE ---
HIEN RN NOTE: Leg dressings changed with assist of student nurse Yahir. R leg venous ulcer in clusters, large in size, no odor. L posterior leg smaller in size but draining more serosanguineous drainage, no odor. Painful upon removal or cleaning of
wounds despite being premedicated for pain. Rosario Pad non adhesive diaper pad used over abd pads for copious drainage used. Next dressing nursing can use pink Rosario Pads at bedside. Mineral oil applied to dry skin on lower legs and feet. Med wraps
applied knee high, heels are intact. Pillow placed under calves. Patient turned to side with assist, gluteal cleft with linear opening, pink base. Suspect mainly MASD vs true stage 2 PI. Will update wound care orders and follow as needed. Nurse Aure
updated on the above.
--- NOTE | 2024-07-24 11:20 | WOUNDNOTE ---
WON RN NOTE: Leg dressings changed with assist of student nurse Yahir. R leg venous ulcer in clusters, large in size, no odor. L posterior leg smaller in size but draining more serosanguineous drainage, no odor. Painful upon removal or cleaning of
wounds despite being premedicated for pain. Rosario Pad non adhesive diaper pad used over abd pads for copious drainage. Next dressing nursing can use pink Rosario Pads at bedside prn copious drainage. Mineral oil applied to dry skin on lower legs and
feet. Med wraps applied knee high, heels are intact. Pillow placed under calves. Patient turned to side with assist, gluteal cleft with 2 linear openings, pink base, distal with dark maroon to periwound. Suspect mainly MASD vs true stage 2 PI.
Posterior thighs with chronic dark discolored skin that blanches. Will update wound care orders and follow as needed. Nurse Aure updated on the above.
--- NOTE | 2024-07-24 13:22 | W.PN.HOSP.TC ---
Today's Communication/Plan
-
Continue with Zosyn
Consult ID
Assessment / Plan
Assessment / Plan
Right leg open wounds/superficial ulceration with infection and cellulitis
Large areas of ulceration of legs Rt>Lt -clinically venous stasis related
Chronic bilateral venous stasis.
History of right lower extremity vein stripping
History of prior lower extremity edema with infection.
Patient has been having progressive wounds which are not healing currently under the care of wound care center. Patient not improving. Not systemically toxic but with extent of involvement of the legs and his comorbidities of chronic lymphedema
would benefit intravenous antibiotics. Last culture data from end 2023 shows Pseudomonas and MSSA in the wound culture. No MRSA was noted on the screen.
Started on IV Zosyn. Repeat wound cultures pending. CW topical ulcer treatment per wound care team.
Follow for clinical improvement.
ultrasound of the legs neg for DVT .Large right groin lymph node noted possibly secondary infection needs to be followed.
Has got good dorsalis pedis pulsation in both the feet.
Consult ID in view of significant infection of ulcers and as well as cellulitis.
History of chronic lymphedema
Continue with his Bumex
Hypertension-continue with his present medication lisinopril
Full code
Anticipated Discharge: > 48 hours
Subjective/Interval History
-
Date of Service: July 24, 2024
The dressing change was okay with the help of IV Dilaudid for pain.
He is now done with dressing changes for today and as well as Med wrapping done and feels okay.
No fever chills.
No nausea vomiting.
Objective Data
-
Vital Signs:
Vital Signs
Temp Pulse Resp BP Pulse Ox
97.8 F 82 16 135/79 95
07/24/24 08:02 07/24/24 08:02 07/24/24 08:02 07/24/24 08:02 07/24/24 08:02
I&O
07/23/24 07/24/24 07/25/24
06:59 06:59 06:59
Intake Total 450 / 450
Output Total 150 / 150
Balance 300 / 300
Review of Systems
-
Constitutional: Denies Fever
Respiratory: Denies Trouble Breathing
Cardiac: Denies Chest Pain
Neuro: Denies Dizzy
Physical Exam
-
General: Comfortable
Respiratory: Non Labored Respirations; Negative Accessory Resp Muscle Use
Cardiac: Regular Rhythm and S1/S2
Musculoskeletal: Other (both legs in dressing and med wrapped . Photos of ulcers taken in wound care ctr yesterday noted)
Neuro: AO x 3
Psych: Calm
Data Reviewed
-
Labs: Labs Reviewed by me
--- NOTE | 2024-07-24 14:34 | CON.ID ---
Consultation
-
Date/Time Consultation Requested: July 24, 2024 1327
Date/Time Consultation Performed: July 24, 2024 1443
Requesting Provider: Dr. Baltazar Murcia
Performing Provider: Dr. Kiki Swanson
Reason for Consultation: Leg wounds with cellulitis
Chief Complaint / Past History
Chief Complaint
Infected right leg wounds
History of Present Illness
Jarret Jack is a 74-year-old man past medical history chronic lower extremity lymphedema, bilateral venous stasis presented to hospital on July 23 due to worsening right leg wounds He has chronic right leg wounds for several months. He also
developed a small left calf wound recently after left total knee replacement when he was instructed to hold off leg compression during postop period. He follows at wound care center, seen on July 23, and sent to ER due to cellulitis. He complains
of wound pain on the right. Otherwise no fevers or chills. No other complaints.
Past History
Additional Past Medical History:
Hypertension
HFpEF
Class III Obesity (current BMI = 42)
Sleep apnea
Venous stasis bilateral lower extremities
Chronic right > L lower extremity lymphedema
BPH
R TKR
L TKR
Appendectomy
Vein surgery
T&A
Allergy History:
No Known Allergies Allergy (Verified 07/23/24 08:52)
Medications Reviewed: Yes
Current Antibiotics:
Zosyn d2
Vanco d2
Social History
Tobacco: Non-Smoker
Alcohol: None
Drug: None
Personal:
Living: With Family
Employment: Not Employed
Family History
Family History: Not Pertinent
Review of Systems
Review of Systems
General: Negative Fever, Chills or Change in Appetite
HEENT: Negative Sinus Problems or Headache
Cardiovascular: Negative Chest Pain or Dyspnea
Respiratory: Negative Dyspnea or Cough
Gasteroenterology: Negative Nausea, Vomiting or Diarrhea
Genital / Urological: Negative Dysuria or Flank Pain
Endocrine: Negative Weakness
Vital Signs
Temp Pulse Resp BP Pulse Ox
97.8 F 82 16 135/79 95
07/24/24 08:02 07/24/24 08:02 07/24/24 08:02 07/24/24 08:02 07/24/24 08:02
Physical Exam
Physical Exam
Constitutional: No Acute Distress and Obese
Eyes: No Conjunctival Hemorrhage and Sclera Anicteric
Cardiovascular: Regular Rate and S1/S2
Pulmonary: Clear
Gastrointestinal: Soft, Non Tender, Non Distended and Normal Bowel Sounds
Extremities: Edema (Lymphedema right greater than left) and Venous Insufficiency (Bilateral lower extremities)
Wound: Other (Reviewed today's wound photos: Right lateral leg is a large venous stasis wound, leg with erythema. Left calf shallow venous stasis wound.)
Neurological: AO x 3
Lab / Diagnostic Study Results
07/23/24 09:23
07/23/24 09:23
Abs Immat Gran (auto) 0.0 10^3/uL (0-0.05) 07/23/24 09:23
Absolute Neuts (auto) 5.3 10^3/uL (1.4-6.5) 07/23/24 09:23
Absolute Lymphs (auto) 0.7 10^3/uL (1.2-3.4) L 07/23/24 09:23
Absolute Monos (auto) 0.6 10^3/uL (0.1-0.6) 07/23/24 09:23
Absolute Basos (auto) 0.1 10^3/uL (0-0.2) 07/23/24 09:23
Immature Gran % 0.4 % (0-0.5) 07/23/24 09:23
Neutrophils % 77.0 % (42.2-75.2) H 07/23/24 09:23
Lymphocytes % 10.5 % (20.5-51.1) L 07/23/24 09:23
Monocytes % 8.8 % (1.7-9.3) 07/23/24 09:23
Eosinophils % 2.6 % (0-6) 07/23/24 09:23
Basophils % 0.7 % (0-2) 07/23/24 09:23
Lactic Acid Cancelled 07/23/24 13:30
Microbiology Results
Micro:
07/24/24 13:20 MRSA Screen - Pending
Nose
07/23/24 09:23 Blood Culture - Preliminary
Blood/Venous No Growth in 24 hours- Final report to follow
07/23/24 09:23 Blood Culture - Preliminary
Blood/Venous No Growth in 24 hours- Final report to follow
Assessment / Plan
# RLE cellulits
# Venous stasis wounds RLE>>LLE
# Chronic lymphedema
- Continue Zosyn (d2)
-DC Vancomycin
- Continue compression and local wound care.
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
Hypertension
HFpEF
Class III Obesity (current BMI = 42)
Sleep apnea
Venous stasis bilateral lower extremities
Chronic right > L lower extremity lymphedema
BPH
R TKR
L TKR
Appendectomy
Vein surgery
T&A
[2024-07-24 15:40] VITALS: BP 104/58
[2024-07-24] MEDS: NORCO 5/325 1 TABLET PO (16:28)
[2024-07-24] MEDS: LOVENOX 40 MG SC (17:55)
[2024-07-24] MEDS: NEURONTIN 300 MG PO (21:13)
[2024-07-24 23:00] VITALS: BP 108/67
--- NOTE | 2024-07-25 00:24 | PTCARENOTE ---
patient was offered oral care multiple times, but refused. The patient explained that it is his preference to do oral care in the morning.
[2024-07-25] MEDS: ZOSYN 50 IV ×4 (03:52→21:58)
[2024-07-25 07:45] VITALS: BP 125/72
[2024-07-25] MEDS: DESENEX/MITRAZOL/ZEASORB 1 APPLIC TOPICAL ×2 (08:18→20:28)
[2024-07-25] MEDS: ZESTRIL 20 MG PO (08:18)
[2024-07-25] MEDS: BUMEX 0.5 MG PO ×2 (08:18→17:14)
[2024-07-25] MEDS: VITAMIN C 500 MG PO ×2 (08:18→20:28)
[2024-07-25] MEDS: VITAMIN D3 (cholecalciferol) 20 MCG PO (08:18)
[2024-07-25] MEDS: FEOSOL 325 MG PO ×2 (08:18→20:28)
[2024-07-25] MEDS: VITAMIN B-12 1000 MCG PO (08:18)
[2024-07-25] MEDS: HYDROPHOR 1 APPLIC TOPICAL (08:18)
[2024-07-25] MEDS: LOW STRENGTH ASPIRIN 81 MG PO (08:18)
[2024-07-25] MEDS: NEURONTIN 100 MG PO ×3 (08:18→21:58)
--- NOTE | 2024-07-25 11:49 | W.PN.HOSP.TC ---
Today's Communication/Plan
-
Continue with IV Zosyn
Assessment / Plan
Assessment / Plan
Right leg open wounds/superficial ulceration with infection and cellulitis
Large areas of ulceration of legs Rt>Lt -clinically venous stasis related
Chronic bilateral venous stasis.
History of right lower extremity vein stripping
History of prior lower extremity edema with infection.
Patient has been having progressive wounds which are not healing currently under the care of wound care center. Patient not improving. Not systemically toxic but with extent of involvement of the legs and his comorbidities of chronic lymphedema
would benefit intravenous antibiotics. Last culture data from end 2023 shows Pseudomonas and MSSA in the wound culture. No MRSA was noted on the screen.
Started on IV Zosyn. Repeat wound cultures pending. CW topical ulcer treatment per wound care team.
Follow for clinical improvement.
ultrasound of the legs neg for DVT .Large right groin lymph node noted possibly secondary infection needs to be followed.
Has got good dorsalis pedis pulsation in both the feet.
Appt Consult ID input
History of chronic lymphedema
Continue with his Bumex
Hypertension-continue with his present medication lisinopril
Full code
Anticipated Discharge: > 48 hours
Subjective/Interval History
-
Date of Service: July 25, 2024
Pain from the right leg somewhat improving.
No fever chills.
He had loose stools around 3 yesterday. No nausea vomiting. Tolerating diet.
No shortness of breath or chest pain.
No fever or chills.
Objective Data
-
Vital Signs:
Vital Signs
Temp Pulse Resp BP Pulse Ox
98.1 F 82 18 125/72 98
07/25/24 07:45 07/25/24 07:45 07/25/24 07:45 07/25/24 07:45 07/25/24 07:45
I&O
07/24/24 07/25/24 07/26/24
06:59 06:59 06:59
Intake Total 1490 / 1490
Output Total 625 / 625
Balance 865 / 865
Physical Exam
-
Respiratory: Non Labored Respirations; Negative Accessory Resp Muscle Use
Cardiac: Regular Rhythm and S1/S2; Negative Tachycardic
GI: Soft and Nontender
Musculoskeletal: Other (Bilateral legs in dressing)
Neuro: AO x 3
Psych: Calm; Negative Confused
[2024-07-25] MEDS: DILAUDID 0.25 MG IV (13:48)
[2024-07-25 15:31] VITALS: BP 103/64
--- NOTE | 2024-07-25 16:32 | W.PN.ID1 ---
Date of Service
Date of Service: July 25, 2024
Today's Communication
Continue Zosyn.
Assessment / Plan
# RLE cellulitis
# Venous stasis wounds RLE>>LLE
# Chronic lymphedema
- Continue Zosyn (d3)
- Continue compression and local wound care.
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
Hypertension
HFpEF
Class III Obesity (current BMI = 42)
Sleep apnea
Venous stasis bilateral lower extremities
Chronic right > L lower extremity lymphedema
BPH
R TKR
L TKR
Appendectomy
Vein surgery
T&A
Chief Complaint
-: Cellulitis
Subjective / Review of Systems
Wounds less painful.
Vital Signs / Physical Exam
Vital Signs
Vital Signs
Temp Pulse Resp BP Pulse Ox
97.5 F 84 18 103/64 98
07/25/24 15:31 07/25/24 15:31 07/25/24 15:31 07/25/24 15:31 07/25/24 15:31
Physical Exam
Constitutional: No Acute Distress
Eyes: No Conjunctival Hemorrhage and Sclera Anicteric
Cardiovascular: Regular Rate and S1/S2
Pulmonary: Clear
Gastrointestinal: Soft and Non Tender
Extremities: Edema (BLE ERNIE-Wrap)
Neurological: AO x 3
Objective Data
Lab Data
Lab Results
07/23/24 09:23
07/23/24 09:23
Estimated Creat Clear > 125 ml/min 07/23/24 09:23
Lactic Acid Cancelled 07/23/24 13:30
Total Bilirubin 0.4 mg/dl (0.2-1.3) 07/23/24 09:23
AST 13 U/L (17-59) L 07/23/24 09:23
ALT 10 U/L (0-50) 07/23/24 09:23
Alkaline Phosphatase 66 U/L (38-126) 07/23/24 09:23
Most recent labs reviewed.
Micro Results:
07/24/24 13:20 MRSA Screen - Final
Nose No Methicillin Resistant Staphylococcus aureus isolated.
07/23/24 09:23 Blood Culture - Preliminary
Blood/Venous No Growth in 48 hours- Final report to follow
07/23/24 09:23 Blood Culture - Preliminary
Blood/Venous No Growth in 48 hours- Final report to follow
[2024-07-25] MEDS: LOVENOX 40 MG SC (17:14)
[2024-07-25] MEDS: NORCO 5/325 1 TABLET PO (17:15)
[2024-07-25] MEDS: NEURONTIN 300 MG PO (21:58)
[2024-07-25] MEDS: TYLENOL 650 MG PO (22:04)
[2024-07-25 23:58] VITALS: BP 103/49
[2024-07-26] MEDS: NORCO 5/325 1 TABLET PO ×3 (02:58→22:29)
[2024-07-26] MEDS: ZOSYN 50 IV ×4 (03:05→22:24)
[2024-07-26 07:16] VITALS: BP 134/71
[2024-07-26] MEDS: ZESTRIL 20 MG PO (08:49)
[2024-07-26] MEDS: VITAMIN D3 (cholecalciferol) 20 MCG PO (08:50)
[2024-07-26] MEDS: LOW STRENGTH ASPIRIN 81 MG PO (08:50)
[2024-07-26] MEDS: BUMEX 0.5 MG PO ×2 (08:50→16:05)
[2024-07-26] MEDS: NEURONTIN 100 MG PO ×3 (08:50→22:26)
[2024-07-26] MEDS: FEOSOL 325 MG PO ×2 (08:50→22:24)
[2024-07-26] MEDS: VITAMIN C 500 MG PO ×2 (08:50→22:27)
[2024-07-26] MEDS: VITAMIN B-12 1000 MCG PO (08:50)
[2024-07-26] MEDS: DESENEX/MITRAZOL/ZEASORB 1 APPLIC TOPICAL ×2 (08:50→22:27)
[2024-07-26] MEDS: HYDROPHOR 1 APPLIC TOPICAL (08:51)
[2024-07-26 11:36] VITALS: BMI 42.4
--- NOTE | 2024-07-26 11:57 | CM ---
Addendum entered by Cara Darden 07/26/24 12:08:
[facility] notified @ ; agency reported that patient is active; requested that Home Health referral/clinicals be sent via Fax

Original Note:
Met with patient at bedside; initial assessment completed
pharmacy verified: [facility] @ [address] [place] [address]
Patient reported he lives in a one floor in-law suite; his son and son's family lives in main house
PLOF: patient reported he is independent with personal care; able to drive to/from work
Home Health services: VN, PT, OT w/ [facility]
DME: [employer]; Ramp to enter home; no longer uses CPAP
Will drive himself home; son will support as needed
Plan: home with resumption of home health services when medically stable
[2024-07-26] MEDS: DILAUDID 0.25 MG IV (13:13)
--- NOTE | 2024-07-26 13:33 | W.PN.HOSP.TC ---
Today's Communication/Plan
-
Continue Zosyn and narrow when appropriate per ID
DC planning
Assessment / Plan
Assessment / Plan
Right leg open wounds/superficial ulceration with infection and cellulitis
Large areas of ulceration of legs Rt>Lt -clinically venous stasis related
Chronic bilateral venous stasis.
History of right lower extremity vein stripping
History of prior lower extremity edema with infection.
Patient has been having progressive wounds which are not healing currently under the care of wound care center. Patient not improving. Not systemically toxic but with extent of involvement of the legs and his comorbidities of chronic lymphedema
would benefit intravenous antibiotics. Last culture data from end 2023 shows Pseudomonas and MSSA in the wound culture. No MRSA was noted on the screen.
Started on IV Zosyn. CW topical ulcer treatment per wound care team.
Improved pain from the legs. No fever chills.
ultrasound of the legs neg for DVT .Large right groin lymph node noted possibly secondary infection needs to be followed.
Has got good dorsalis pedis pulsation in both the feet.
Appt Consult ID input
History of chronic lymphedema
Continue with his Bumex
Hypertension-continue with his present medication lisinopril
Full code
Anticipated Discharge: Today
Subjective/Interval History
-
Date of Service: July 26, 2024
Pain much improved from the right proximal body.
No fever or chills.
Denies any nausea vomiting.
Looser consistency to the stools but no diarrhea
No shortness of breath or chest pain.
Objective Data
-
Vital Signs:
Vital Signs
Temp Pulse Resp BP Pulse Ox
97.8 F 79 17 134/71 96
07/26/24 07:16 07/26/24 08:49 07/26/24 07:16 07/26/24 08:49 07/26/24 07:16
I&O
07/25/24 07/26/24 07/27/24
06:59 06:59 06:59
Intake Total 1490 / 1490 720 / 720
Output Total 625 / 625 500 / 500
Balance 865 / 865 220 / 220
Physical Exam
-
General: No Apparent Distress
Respiratory: Non Labored Respirations; Negative Accessory Resp Muscle Use
Cardiac: Regular Rhythm and S1/S2; Negative Tachycardic
GI: Soft
Musculoskeletal: Other (Both legs in dressing-will review the wound pictures when taken)
Psych: Calm
[2024-07-26 15:03] VITALS: BP 105/63
--- NOTE | 2024-07-26 15:29 | W.PN.ID1 ---
Date of Service
Date of Service: July 26, 2024
Today's Communication
Tomorrow can dc home on cipro 500mg po bid and cephalexin 1000mg po tid through 08/01/24.
Assessment / Plan
# RLE cellulitis improving
# Venous stasis wounds RLE>>LLE, improving
# Chronic lymphedema
- Continue compression and local wound care.
- Continue Zosyn (d4)
- Tomorrow can dc home on cipro 500mg po bid and cephalexin 1000mg po tid through 08/01/24.
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
Hypertension
HFpEF
Class III Obesity (current BMI = 42)
Sleep apnea
Venous stasis bilateral lower extremities
Chronic right > L lower extremity lymphedema
BPH
R TKR
L TKR
Appendectomy
Vein surgery
T&A
Chief Complaint
-: Cellulitis
Subjective / Review of Systems
Leg wounds not as painful.
Vital Signs / Physical Exam
Vital Signs
Vital Signs
Temp Pulse Resp BP Pulse Ox
97.5 F 84 17 105/63 99
07/26/24 15:03 07/26/24 15:03 07/26/24 15:03 07/26/24 15:03 07/26/24 15:03
Physical Exam
Constitutional: No Acute Distress
Cardiovascular: Regular Rate and S1/S2
Pulmonary: Clear
Gastrointestinal: Soft, Non Tender and Non Distended
Extremities: Edema (BLE lymphedema)
Wound: Other (Reviewed today's wound photos: right lateral leg massive wound, dry, granulating tissue, improved surrounding erythema)
Neurological: AO x 3
Objective Data
Lab Data
Lab Results
07/23/24 09:23
07/23/24 09:23
Estimated Creat Clear > 125 ml/min 07/23/24 09:23
Lactic Acid Cancelled 07/23/24 13:30
Total Bilirubin 0.4 mg/dl (0.2-1.3) 07/23/24 09:23
AST 13 U/L (17-59) L 07/23/24 09:23
ALT 10 U/L (0-50) 07/23/24 09:23
Alkaline Phosphatase 66 U/L (38-126) 07/23/24 09:23
Most recent labs reviewed.
Micro Results:
07/23/24 09:23 Blood Culture - Preliminary
Blood/Venous No Growth in 72 hours- Final report to follow
07/23/24 09:23 Blood Culture - Preliminary
Blood/Venous No Growth in 72 hours- Final report to follow
07/24/24 13:20 MRSA Screen - Final
Nose No Methicillin Resistant Staphylococcus aureus isolated.
Care Review
Plan reviewed with: Physician (Dr. Edwardo Murcia)
[2024-07-26] MEDS: LOVENOX 40 MG SC (17:27)
[2024-07-26] MEDS: NEURONTIN 300 MG PO (22:24)
[2024-07-26 23:00] VITALS: BP 118/47
--- NOTE | 2024-07-27 00:56 | PTCARENOTE ---
said he will do it in the morning. Asked multiple times
[2024-07-27] MEDS: ZOSYN 50 IV ×4 (05:10→20:56)
[2024-07-27 07:40] VITALS: BP 108/59
[2024-07-27] MEDS: VITAMIN D3 (cholecalciferol) 20 MCG PO (07:54)
[2024-07-27] MEDS: NEURONTIN 100 MG PO ×3 (07:55→20:56)
[2024-07-27] MEDS: ZESTRIL 20 MG PO (07:55)
[2024-07-27] MEDS: BUMEX 0.5 MG PO ×2 (07:55→14:57)
[2024-07-27] MEDS: LOW STRENGTH ASPIRIN 81 MG PO (07:55)
[2024-07-27] MEDS: VITAMIN C 500 MG PO ×2 (07:55→20:56)
[2024-07-27] MEDS: VITAMIN B-12 1000 MCG PO (07:55)
[2024-07-27] MEDS: FEOSOL 325 MG PO ×2 (07:55→20:56)
[2024-07-27] MEDS: DESENEX/MITRAZOL/ZEASORB 1 APPLIC TOPICAL ×2 (07:56→20:57)
[2024-07-27] MEDS: HYDROPHOR 1 APPLIC TOPICAL (07:56)
--- NOTE | 2024-07-27 09:53 | W.PN.ID1 ---
Date of Service
Date of Service: July 27, 2024
Today's Communication
- Transition Zosyn (d4) to cipro 500mg po bid and cephalexin 1000mg po tid through 08/01/24.
_ DC home.
-ID will sign off.
Assessment / Plan
# RLE cellulitis improving
# Venous stasis wounds RLE>>LLE, improving
# Chronic lymphedema
- Continue compression and local wound care.
- Transition Zosyn (d4) to cipro 500mg po bid and cephalexin 1000mg po tid through 08/01/24.
- Follow-up at [facility].
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
Hypertension
HFpEF
Class III Obesity (current BMI = 42)
Sleep apnea
Venous stasis bilateral lower extremities
Chronic right > L lower extremity lymphedema
BPH
R TKR
L TKR
Appendectomy
Vein surgery
T&A
Chief Complaint
-: Cellulitis
Subjective / Review of Systems
Feeling better.
Vital Signs / Physical Exam
Vital Signs
Vital Signs
Temp Pulse Resp BP Pulse Ox
98.7 F 70 14 108/59 97
07/27/24 07:40 07/27/24 07:55 07/27/24 07:40 07/27/24 07:55 07/27/24 07:40
Physical Exam
Constitutional: No Acute Distress and Obese
Cardiovascular: Regular Rate and S1/S2
Pulmonary: Clear
Gastrointestinal: Soft, Non Tender and Non Distended
Extremities: Edema (BLE lymphedema)
Wound: Other (Reviewed 07/26 wound photos: right lateral leg massive wound, dry, granulating tissue, improved surrounding erythema)
Neurological: AO x 3
Objective Data
Lab Data
Lab Results
07/23/24 09:23
07/23/24 09:23
Estimated Creat Clear > 125 ml/min 07/23/24 09:23
Lactic Acid Cancelled 07/23/24 13:30
Total Bilirubin 0.4 mg/dl (0.2-1.3) 07/23/24 09:23
AST 13 U/L (17-59) L 07/23/24 09:23
ALT 10 U/L (0-50) 07/23/24 09:23
Alkaline Phosphatase 66 U/L (38-126) 07/23/24 09:23
Most recent labs reviewed.
Micro Results:
07/23/24 09:23 Blood Culture - Preliminary
Blood/Venous No Growth in 4 days- Final report to follow
07/23/24 09:23 Blood Culture - Preliminary
Blood/Venous No Growth in 4 days- Final report to follow
07/24/24 13:20 MRSA Screen - Final
Nose No Methicillin Resistant Staphylococcus aureus isolated.
--- NOTE | 2024-07-27 10:56 | W.PN.HOSP.TC ---
Addendum entered and electronically signed by Sen Fregoso MD 07/27/24 15:48:
Dictation- [id number]
Addendum entered and electronically signed by Sen Fregoso MD 07/27/24 14:54:
No labs since 07/23/2024.
Did not order CBC as patient is getting better and labs were normal
Get a BMP before discharge
Original Note:
Today's Communication/Plan
-
Discharge
Assessment / Plan
Assessment / Plan
74-year-old with lower extremity cellulitis and ulcers
[facility]: S1-S2 normal
Chest: CTA B/L
Abdomen: Soft, NT / Bowel sounds present
Extremities: Pt does not want me to unwrap his dressings. Pictures reviewed
# Right lower extremity open wounds/ulceration with infection and cellulitis
Bilateral lower extremity ulcers right more than left-secondary to venous stasis
Chronic bilateral venous stasis
History of right lower extremity vein stripping
Ultrasound without any DVT
Large inguinal lymph node likely secondary infection-needs to be followed as outpatient
Zosyn changed to ciprofloxacin vitamin grams twice daily and cephalexin 1000 mg twice daily through 08/01/2024
Good pulses lower extremity
Continue Bumex for edema
Infectious disease following
# Exposure to COVID-testing negative. Patient was advised to test again as outpatient if he has symptoms.
# Hypertension-continue lisinopril
# Chronic HFpEF-continue Bumex
# Iron deficiency anemia-continue supplements
# Chronic pain-opiate dependent for pain control
Continue opiates and also gabapentin
# Sleep apnea-continue CPAP
# GERD-continue Pepcid
# Obesity per BMI 42-needs weight loss advised
# DVT prophylaxis-Lovenox
# Full code
Discussed with nursing
Okay for discharge per ID
More than 30 minutes spent in discharge including
Final examination of the patient
Summarizing hospital stay
Instructions for continuing care to all relevant caregivers
Preparation of discharge records, prescriptions, and referral forms
Total time spent (in minutes): 38 min
Part of this note was created using voice recognition system. Occasional wrong word or��sound alike� substitutions may have inadvertently occurred due to the inherent limitations of voice recognition software. If noted kindly bring it to my
attention for correction.
Anticipated Discharge: Today
Subjective/Interval History
-
Date of Service: July 27, 2024
Objective Data
-
Vital Signs:
Vital Signs
Temp Pulse Resp BP Pulse Ox
98.7 F 70 14 108/59 97
07/27/24 07:40 07/27/24 07:55 07/27/24 07:40 07/27/24 07:55 07/27/24 07:40
I&O
07/26/24 07/27/24 07/28/24
06:59 06:59 06:59
Intake Total 720 / 720 1280 / 1280
Output Total 500 / 500 350 / 350
Balance 220 / 220 930 / 930
--- NOTE | 2024-07-27 11:04 | RESPNOTE ---
Patient does not want to wear bipap, he has not used his bipap at home and does not want to use our machine
[2024-07-27 11:26] LABS: COVID-19 Antigen Negative (Negative)
[2024-07-27] MEDS: DILAUDID 0.25 MG IV (14:34)
[2024-07-27 16:08] LABS: Blood Urea Nitrogen 45 mg/dl (9-20); Calcium 8.8 mg/dl (8.4-10.2); Carbon Dioxide 29 mmol/L (22-30); Chloride 106 mmol/L (98-107); Estimated Creatinine Clearance 100 ml/min; Glucose 126 mg/dl (70-99); Potassium 4.9 mmol/L (3.5-5.1); Sodium 141 mmol/L (135-145); eGFR > 60.00
--- NOTE | 2024-07-27 17:24 | PTCARENOTE ---
S Pt. verbalized he doesn't want to leave at the time of discharge- he would like to leave in the morning because he doesn't have help this evening at home
B Pt. admitted with R lower ext. open wounds with infection
A see online database
R RN reached out to Dr. Fregoso via tiger text and cross coverage and made aware.
[2024-07-27] MEDS: LOVENOX 40 MG SC (17:42)
[2024-07-27] MEDS: NEURONTIN 300 MG PO (20:56)
[2024-07-27] MEDS: FLUSH (NSS) 1 FLUSH IV (20:58)
[2024-07-27 23:55] VITALS: BP 108/61
[2024-07-28] MEDS: ZOSYN 50 IV ×2 (04:04→08:53)
[2024-07-28] MEDS: FLUSH (NSS) 1 FLUSH IV (04:08)
[2024-07-28 07:40] VITALS: BP 123/68
[2024-07-28] MEDS: LOW STRENGTH ASPIRIN 81 MG PO (08:38)
[2024-07-28] MEDS: VITAMIN C 500 MG PO ×2 (08:38→20:09)
[2024-07-28] MEDS: ZESTRIL 20 MG PO (08:39)
[2024-07-28] MEDS: DESENEX/MITRAZOL/ZEASORB 1 APPLIC TOPICAL ×2 (08:39→20:09)
[2024-07-28] MEDS: VITAMIN D3 (cholecalciferol) 20 MCG PO (08:39)
[2024-07-28] MEDS: FEOSOL 325 MG PO ×2 (08:39→20:09)
[2024-07-28] MEDS: NEURONTIN 100 MG PO ×3 (08:39→20:09)
[2024-07-28] MEDS: BUMEX 0.5 MG PO ×2 (08:39→17:50)
[2024-07-28] MEDS: VITAMIN B-12 1000 MCG PO (08:39)
[2024-07-28] MEDS: HYDROPHOR 1 APPLIC TOPICAL (08:40)
[2024-07-28] MEDS: DILAUDID 0.25 MG IV (13:12)
--- NOTE | 2024-07-28 14:29 | CM ---
MD entered order for discharge.
Spoke with pt in room .
He said he was ready for discharge.
Pt will have wound care done by RN prior to discharge.
As per care port [facility] accepted patient.
Son Layotn will drive him home.
PLAN :Home with [facility] notified # [phone]
--- NOTE | 2024-07-28 14:55 | W.PN.HOSP.TC ---
Today's Communication/Plan
-
DC
Assessment / Plan
Assessment / Plan
74-year-old with lower extremity cellulitis and ulcers
# Right lower extremity open wounds/ulceration with infection and cellulitis
Bilateral lower extremity ulcers right more than left-secondary to venous stasis
Chronic bilateral venous stasis
History of right lower extremity vein stripping
Ultrasound without any DVT
Large inguinal lymph node likely secondary infection-needs to be followed as outpatient
Zosyn changed to ciprofloxacin vitamin grams twice daily and cephalexin 1000 mg twice daily through 08/01/2024
Good pulses lower extremity
Continue Bumex for edema
Infectious disease following
#Localized rash bilateral posterior upper arms-? Contact. Patient advised to continue to keep an eye on that. If becomes more generalized to contact ID and consider change of antibiotics.
# Exposure to COVID-testing negative. Patient was advised to test again as outpatient if he has symptoms.
# Hypertension-continue lisinopril
# Chronic HFpEF-continue Bumex
# Iron deficiency anemia-continue supplements
# Chronic pain-opiate dependent for pain control
Continue opiates and also gabapentin
# Sleep apnea-continue CPAP
# GERD-continue Pepcid
# Obesity per BMI 42-needs weight loss advised
# DVT prophylaxis-Lovenox
# Full code
Discussed with nursing
Okay for discharge
More than 30 minutes spent in discharge including
Final examination of the patient
Summarizing hospital stay
Instructions for continuing care to all relevant caregivers
Preparation of discharge records, prescriptions, and referral forms
Total time spent (in minutes): 32 min
Part of this note was created using voice recognition system. Occasional wrong word or��sound alike� substitutions may have inadvertently occurred due to the inherent limitations of voice recognition software. If noted kindly bring it to my
attention for correction.
Anticipated Discharge: Today
Subjective/Interval History
-
Date of Service: July 28, 2024
Was planned for discharge today
He had a dressing change today.
No fever chills.
Improved right leg pain.
The nurse noticed a localized rash in the posterior upper arm bilaterally which are itchy. No other skin rash noted. Patient says he noticed the itch in the last day or so.
Objective Data
-
Vital Signs:
Vital Signs
Temp Pulse Resp BP Pulse Ox
98.5 F 71 18 123/68 98
07/28/24 07:40 07/28/24 07:40 07/28/24 07:40 07/28/24 07:40 07/28/24 13:17
I&O
07/27/24 07/28/24 07/29/24
06:59 06:59 06:59
Intake Total 1280 / 1280 1560 / 1560
Output Total 350 / 350
Balance 930 / 930 1560 / 1560
Physical Exam
-
General: Comfortable
Respiratory: Non Labored Respirations; Negative Accessory Resp Muscle Use
Cardiac: Regular Rhythm and S1/S2
GI: Soft
Skin: Rash (Very localized maculopapular rash in the posterior upper arms bilaterally unclear if it is contact but no other area of rash.)
Neuro: AO x 3
Psych: Calm
[2024-07-28 16:00] VITALS: BP 117/69
[2024-07-28] MEDS: TYLENOL 650 MG PO (17:49)
[2024-07-28] MEDS: LOVENOX 40 MG SC (17:49)
[2024-07-28] MEDS: BENADRYL 25 MG PO (17:50)
[2024-07-28] MEDS: ZOSYN IV (17:50)
[2024-07-28] MEDS: CIPRO 500 MG PO (17:50)
--- NOTE | 2024-07-28 18:12 | PTCARENOTE ---
IV zosyn given as per MD order in RUE IV. about an hour later, i noticed a new raised red rash developing on RUE. he was itching his arm vigorously . Patient validated that the itching started late yesterday and that he did not report it. I told
him i have to alert the md out of fear of an allergicr reaction. he stated he wanted to go home and not to tell md. I explained i have to. I called Md and he came to bedside and assessed for the rash. At this time, Md stated he was not confident
that it was a reaction to zosyn and would be DC him later not on zosyn. PT was later DC and i removed IV at that time. When son came to pickle maker his father, the patient had increased amount of red raised rash and itching. it progressed tolower
abdomen, lower back, legs and BUE arms including upper and lower arms. MD notified, DC cancelled, and zosyn added as allergy and benadryl given.
[2024-07-28] MEDS: NEURONTIN 300 MG PO (20:09)
[2024-07-28 23:30] VITALS: BP 102/55
[2024-07-29 07:52] VITALS: BP 113/65
--- NOTE | 2024-07-29 09:00 | CM ---
MD entered order for discharge.
He said he was ready for discharge.
Pt will have wound care done by RN prior to discharge.
As per [facility] accepted patient.
Son Layton will drive him home.
PLAN :Home with [facility] notified # [phone]
[2024-07-29] MEDS: NEURONTIN 100 MG PO ×2 (09:22→16:18)
[2024-07-29] MEDS: VITAMIN B-12 1000 MCG PO (09:22)
[2024-07-29] MEDS: BUMEX 0.5 MG PO ×2 (09:22→16:17)
[2024-07-29] MEDS: ZESTRIL 20 MG PO (09:22)
[2024-07-29] MEDS: VITAMIN D3 (cholecalciferol) 20 MCG PO (09:22)
[2024-07-29] MEDS: CIPRO 500 MG PO ×2 (09:22→16:18)
[2024-07-29] MEDS: FEOSOL 325 MG PO (09:22)
[2024-07-29] MEDS: LOW STRENGTH ASPIRIN 81 MG PO (09:23)
[2024-07-29] MEDS: HYDROPHOR 1 APPLIC TOPICAL (09:23)
[2024-07-29] MEDS: DESENEX/MITRAZOL/ZEASORB 1 APPLIC TOPICAL (09:23)
[2024-07-29] MEDS: VITAMIN C 500 MG PO (09:23)
[2024-07-29] MEDS: BENADRYL 25 MG PO (09:24)
[2024-07-29] MEDS: NORCO 5/325 1 TABLET PO (12:44)
--- NOTE | 2024-07-29 14:35 | W.PN.HOSP.TC ---
Today's Communication/Plan
-
DC
Assessment / Plan
Assessment / Plan
74-year-old with lower extremity cellulitis and ulcers
# Right lower extremity open wounds/ulceration with infection and cellulitis
Bilateral lower extremity ulcers right more than left-secondary to venous stasis
Chronic bilateral venous stasis
History of right lower extremity vein stripping
Ultrasound without any DVT
Large inguinal lymph node likely secondary infection-needs to be followed as outpatient
Zosyn changed to ciprofloxacin vitamin grams twice daily and cephalexin 1000 mg twice daily through 08/01/2024
Good pulses lower extremity
Continue Bumex for edema
Discussed with ID on-call today-will continue with ciprofloxacin and cephalexin as planned and see how the rash evolves. Patient advised to call back if fever or generalized feeling of unwell or if the rash becomes more generalized.
#Gen maculpapular rash suspected drug rash-suspected Zosyn related. Stopped Zosyn yesterday. Listed as allergy. No systemic toxicity. Continue with as needed hydralazine.
# Exposure to COVID-testing negative. Patient was advised to test again as outpatient if he has symptoms.
# Hypertension-continue lisinopril
# Chronic HFpEF-continue Bumex
# Iron deficiency anemia-continue supplements
# Chronic pain-opiate dependent for pain control
Continue opiates and also gabapentin
# Sleep apnea-continue CPAP
# GERD-continue Pepcid
# Obesity per BMI 42-needs weight loss advised
# DVT prophylaxis-Lovenox
# Full code
Discussed with nursing
Okay for discharge
More than 30 minutes spent in discharge including
Final examination of the patient
Summarizing hospital stay
Instructions for continuing care to all relevant caregivers
Preparation of discharge records, prescriptions, and referral forms
Total time spent (in minutes): 33 min
Part of this note was created using voice recognition system. Occasional wrong word or��sound alike� substitutions may have inadvertently occurred due to the inherent limitations of voice recognition software. If noted kindly bring it to my
attention for correction.
Anticipated Discharge: Today
Subjective/Interval History
-
Date of Service: July 29, 2024
Last evening rash became generalized to arms and thigh. It was itchy.
Today improved rash on the thighs and forearms but still has a rash on the posterior tricep area bilaterally. No itching today. He was using Benadryl.
No systemic symptoms of being unwell, weakness or fatigue. No fevers or chills. No nausea or vomiting. Diarrhea. Denies shortness of breath or tongue swelling.
He feels better and would like to go home today.
Objective Data
-
Vital Signs:
Vital Signs
Temp Pulse Resp BP Pulse Ox
98.6 F 70 18 113/65 99
07/29/24 07:52 07/29/24 07:52 07/29/24 07:52 07/29/24 07:52 07/29/24 07:52
I&O
07/28/24 07/29/24 07/30/24
06:59 06:59 06:59
Intake Total 1560 / 1560 480 / 480
Balance 1560 / 1560 480 / 480
Physical Exam
-
Respiratory: Non Labored Respirations; Negative Accessory Resp Muscle Use
Cardiac: Regular Rhythm and S1/S2; Negative Tachycardic
Skin: Rash (faded rash in forearms and thigh; still with maculpapular rash in post arms.)
Neuro: AO x 3
Psych: Calm
[2024-07-29 14:54] VITALS: BP 121/64
--- NOTE | 2024-07-29 16:04 | W.DCSUMMARY ---
Discharge Summary
Discharge Data
Date of Admission: 07/23/24
Date of Discharge: 07/29/24
-
Pending Results: No
Hospital Course
Addendum to discharge summary by Dr. Fregoso from 07/27/2024
Patient developed maculopapular rash which was itchy generalized to bilateral arms and bilateral thighs suspected secondary to Zosyn which was discontinued. He had no systemic toxicity. He improved with as needed Benadryl and was discharged home
on ciprofloxacin and cephalexin as planned. He was also advised to use as needed Benadryl for symptom improvement. If he were to develop any fevers, more rash or with general feeling of unwell to come back to the ER.
Discharge Plan
-
Patient Disposition: Home with Home Care
Discharge Diagnosis/Procedures: Right lower extremity cellulitis with open wounds
Drug rash possibly secondary to Zosyn
Hypertension
Chronic heart failure
Ideations anemia
Chronic pain
Sleep apnea
GERD
Condition: Good
Diet: 2 Gram Sodium and Restrict fluids to 64 oz
Activity: As tolerated
Driving Restrictions: As prior to admission
Other Services: VN
Specialty Instructions: Weigh Daily- Call MD for wt gain/loss 3 lbs overnight/5 lbs in 1 week
Activity Restrictions/Additional Instructions:
Wound Care Instructions
Legs: clean with soap and water, adaptic,alginate (for increased drainage)abd pads and kerlix daily and prn drainage.
mineral oil to legs and feet daily
compression daily forefoot to below knee, leg elevation when sitting
offloading cushion when sitting
frequent turning when in bed
Follow up at wound care center call for an appointment.
Referrals:
Paty Mills CRNP [Family Provider, General] - in less than 1 week
Prescriptions:
New
ciprofloxacin HCl [Cipro] 500 mg tablet
500 mg PO BID Qty: 11 0RF
cephalexin 500 mg capsule
1,000 mg PO Q12H Qty: 22 0RF
diphenhydramine HCl [Benadryl Allergy] 25 mg tablet
25 mg PO TID PRN (Reason: itching) Qty: 15 0RF
Continued
ascorbic acid (vitamin C) [Vitamin C] 500 MG tablet
500 mg PO BID
ferrous sulfate [FeroSul] 325 MG tablet
325 mg PO BID
glucosamine sulfate [Glucosamine] 500 mg Tablet
500 mg PO HS
aspirin 81 mg Tablet,Chewable
81 mg PO DAILY
cholecalciferol (vitamin D3) 25 mcg (1,000 unit) Tablet
20 mcg PO DAILY
lisinopril 20 mg Tablet
20 mg PO DAILY
cyanocobalamin (vitamin B-12) 1,000 mcg Tablet
1,000 mcg PO DAILY
hydrocodone-acetaminophen 5-325 mg Tablet
1 tab PO Q6HPRN PRN (Reason: severe pains)
bumetanide 0.5 mg Tablet
0.5 mg PO BID
gabapentin 300 mg Capsule
300 mg PO HS
gabapentin 100 mg Capsule
100 mg PO TID
Discharge Orders:
Discharge Patient (As Directed); Ordered 07/29/24
Ordered By: Baltazar Murcia
Discharge Date and Time
Print Language: ANGOLAN
[2024-07-29] MEDS: LOVENOX SC (16:18)
== END 2024-07-29 17:11 | disposition home health service (06) | DRG 603 ==
LOC: 3 WEST ACU 12:13
PROVIDERS: Hospitalist; ADMITTING PHYSICIAN Internal Medicine; CONSULT PHYSICIAN Internal Medicine Infectious Disease; EMERGENCY PHYSICIAN Emergency Medicine; FAMILY PHYSICIAN Nurse Practitioner Adult Health
DX: L03.115 Cellulitis of right lower limb (principal); Z68.41 Body mass index [BMI] 40.0-44.9, adult; L97.819 Non-pressure chronic ulcer of other part of right lower leg with unspecified severity; F11.20 Opioid dependence, uncomplicated; I50.30 Unspecified diastolic (congestive) heart failure; L97.829 Non-pressure chronic ulcer of other part of left lower leg with unspecified severity; I87.8 Other specified disorders of veins; G89.29 Other chronic pain; I89.0 Lymphedema, not elsewhere classified; D50.9 Iron deficiency anemia, unspecified; I11.0 Hypertensive heart disease with heart failure; I87.2 Venous insufficiency (chronic) (peripheral); I73.9 Peripheral vascular disease, unspecified; L27.0 Generalized skin eruption due to drugs and medicaments taken internally; T36.0X5A Adverse effect of penicillins, initial encounter; Y92.239 Unspecified place in hospital as the place of occurrence of the external cause; K21.9 Gastro-esophageal reflux disease without esophagitis; N40.0 Benign prostatic hyperplasia without lower urinary tract symptoms; E66.813 Obesity, class 3; G47.33 Obstructive sleep apnea (adult) (pediatric); Z60.2 Problems related to living alone; Z96.653 Presence of artificial knee joint, bilateral; Z79.82 Long term (current) use of aspirin; Z11.52 Encounter for screening for COVID-19; Z87.01 Personal history of pneumonia (recurrent)
CPT/HCPCS: 80048; 80053; 83605; 85025; 87040; 87070; 87811; 93970; 96374; 96375; 99215; 99285

== ENCOUNTER → 2024-08-14 10:44 | Outpatient (REF) | payer MEDICARE, OTHER, SELFPAY | LOC: WOUND 10:44 | PROVIDERS: ATTENDING PHYSICIAN Surgery; FAMILY PHYSICIAN Nurse Practitioner Adult Health | DX: I87.313 Chronic venous hypertension (idiopathic) with ulcer of bilateral lower extremity (principal); L97.212 Non-pressure chronic ulcer of right calf with fat layer exposed; L97.222 Non-pressure chronic ulcer of left calf with fat layer exposed; L03.115 Cellulitis of right lower limb; I73.9 Peripheral vascular disease, unspecified; I83.019 Varicose veins of right lower extremity with ulcer of unspecified site; I87.2 Venous insufficiency (chronic) (peripheral); I87.311 Chronic venous hypertension (idiopathic) with ulcer of right lower extremity; I50.32 Chronic diastolic (congestive) heart failure; I10 Essential (primary) hypertension | CPT/HCPCS: 29581; 99213 ==

== ENCOUNTER → 2024-09-04 09:07 | Outpatient (REF) | payer MEDICARE, OTHER, SELFPAY | LOC: WOUND 09:07 | PROVIDERS: ATTENDING PHYSICIAN Surgery; FAMILY PHYSICIAN Nurse Practitioner Adult Health | DX: I87.313 Chronic venous hypertension (idiopathic) with ulcer of bilateral lower extremity (principal); L97.212 Non-pressure chronic ulcer of right calf with fat layer exposed; L97.222 Non-pressure chronic ulcer of left calf with fat layer exposed; L03.115 Cellulitis of right lower limb; I73.9 Peripheral vascular disease, unspecified; I87.2 Venous insufficiency (chronic) (peripheral); I87.311 Chronic venous hypertension (idiopathic) with ulcer of right lower extremity; I50.32 Chronic diastolic (congestive) heart failure; I11.0 Hypertensive heart disease with heart failure | CPT/HCPCS: 29581; 99213 ==

== ENCOUNTER → 2024-09-28 08:09 | Outpatient (REF) | payer MEDICARE, OTHER, SELFPAY | LOC: WOUND 08:09 | PROVIDERS: ATTENDING PHYSICIAN Surgery; FAMILY PHYSICIAN Nurse Practitioner Adult Health | DX: I87.313 Chronic venous hypertension (idiopathic) with ulcer of bilateral lower extremity (principal); L97.212 Non-pressure chronic ulcer of right calf with fat layer exposed; L97.222 Non-pressure chronic ulcer of left calf with fat layer exposed; L03.115 Cellulitis of right lower limb; I73.9 Peripheral vascular disease, unspecified; I83.019 Varicose veins of right lower extremity with ulcer of unspecified site; I87.2 Venous insufficiency (chronic) (peripheral); I87.311 Chronic venous hypertension (idiopathic) with ulcer of right lower extremity; I50.32 Chronic diastolic (congestive) heart failure; I11.0 Hypertensive heart disease with heart failure | CPT/HCPCS: 29581; 99213 ==

== ENCOUNTER → 2024-11-01 08:11 | Outpatient (REF) | payer MEDICARE, OTHER, SELFPAY | LOC: WOUND 08:11 | PROVIDERS: ATTENDING PHYSICIAN Surgery; FAMILY PHYSICIAN Nurse Practitioner Adult Health | DX: I87.313 Chronic venous hypertension (idiopathic) with ulcer of bilateral lower extremity (principal); L97.222 Non-pressure chronic ulcer of left calf with fat layer exposed; L97.212 Non-pressure chronic ulcer of right calf with fat layer exposed; L03.115 Cellulitis of right lower limb; I73.9 Peripheral vascular disease, unspecified; I87.2 Venous insufficiency (chronic) (peripheral) | CPT/HCPCS: 29581; 99213 ==

== ENCOUNTER → 2024-11-19 07:50 | Outpatient (REF) | payer MEDICARE, OTHER, SELFPAY | LOC: WOUND 07:50 | PROVIDERS: ATTENDING PHYSICIAN Surgery; FAMILY PHYSICIAN Nurse Practitioner Adult Health | DX: I87.313 Chronic venous hypertension (idiopathic) with ulcer of bilateral lower extremity (principal); L97.212 Non-pressure chronic ulcer of right calf with fat layer exposed; L97.222 Non-pressure chronic ulcer of left calf with fat layer exposed; I73.9 Peripheral vascular disease, unspecified; I87.2 Venous insufficiency (chronic) (peripheral); I87.311 Chronic venous hypertension (idiopathic) with ulcer of right lower extremity; I50.32 Chronic diastolic (congestive) heart failure; I11.0 Hypertensive heart disease with heart failure | CPT/HCPCS: 29581; 99213 ==

== ENCOUNTER 2024-12-08 02:45 | Inpatient (IN) | payer MEDICARE, OTHER, SELFPAY ==
[2024-12-07 20:29] VITALS: BMI 45.5
[2024-12-07 20:57] LABS: Hematocrit 35.2 % (39.0-52.0); Hemoglobin 10.5 g/dL (13.0-18.0); Mean Corp Hgb Conc. 29.8 g/dL (33.0-37.0); Mean Corpuscular Volume 85.0 fL (80.0-94.0); Nucleated Red Blood Cells % 0 % (-); Platelet Count 251 10^3/uL (130-400); Red Cell Dist. Width 14.5 % (11.5-14.5)
[2024-12-07 21:00] VITALS: BP 128/66
[2024-12-07 21:16] LABS: ALT (SGPT) 13 U/L (0-50); AST (SGOT) 16 U/L (17-59); Albumin 3.8 g/dl (3.5-5.0); Alkaline Phosphatase 63 U/L (38-126); Blood Urea Nitrogen 31 mg/dl (9-20); Calcium 8.9 mg/dl (8.4-10.2); Carbon Dioxide 29 mmol/L (22-30); Chloride 104 mmol/L (98-107); Estimated Creatinine Clearance > 125 ml/min; Glucose 143 mg/dl (70-99); Potassium 4.0 mmol/L (3.5-5.1); Sodium 136 mmol/L (135-145); Total Protein 7.0 g/dl (6.3-8.2); eGFR > 60.00
[2024-12-07 22:00] VITALS: BP 133/65
[2024-12-07] MEDS: TYLENOL 1000 MG PO (22:13)
--- NOTE | 2024-12-07 23:25 | ED.GENMED ---
History of Present Illness
<Amalia Vo PA-C - Last Filed: 12/08/24 03:13>
General
Chief Complaint: Fall
Source: patient
Exam Limitations: none
Time Seen by Provider: 12/07/24 21:22
Nursing documentation reviewed up to this point in time: agreed with
History of Present Illness
History of Present Illness:
Patient is a 74-year-old male with history of hypertension, CHF, lymphedema of bilateral lower extremities who presents to the emergency department via EMS after mechanical fall at home. Patient states he was walking in his kitchen when he lost his
footing and fell landing 'as a pretzel'. He is unsure exactly which side he landed on. He states that he did not strike his head. There was no loss consciousness. Fortunately, his phone was nearby and he was able to contact his daughter who then
called 911 promptly.
He reports pain in his left groin and left upper leg. He also has some pain in his right shoulder. He denies any headache, neck pain. No chest pain, shortness of breath, or abdominal pain. No back pain. No numbness/tingling in extremities.
Patient lives in an in-law suite on the property of his daughter and was alone at the time of the fall.
He is not on any oral anticoagulation.
Past History
<Amalia Vo PA-C - Last Filed: 12/08/24 03:13>
Past History
ED Past Medical History: GERD, HTN, Other (Obesity, PNA, Cellulitis, Sleep Apea) and Other (Peripheral vascular disease, venous stasis ulcer)
ED Past Surgical History: Appendectomy and Tonsilectomy
Social History
Tobacco: Non-smoker
Alcohol: None
Drug: None
Personal:
Living: with family
Employment: Employed
Family History
Family History: Other (Noncontributory)
Review of Systems
<Amalia Vo PA-C - Last Filed: 12/08/24 03:13>
Review of Systems
Allergies reviewed?: Yes
All Other Systems: ROS reviewed and negative except as documented in HPI and ROS
Phy Exam
<Amalia Vo PA-C - Last Filed: 12/08/24 03:13>
Physical Exam
Physical Exam:
Vitals: Patient's vital signs are stable.
General: Large body habitus, appears uncomfortable
Skin: Warm and dry, no rashes or lesions
Head: Normocephalic, atraumatic
Eyes: Sclera nonicteric. EOMs intact. No nystagmus.
Throat: Protecting airway
Neck: Normal ROM, no cervical spine tenderness, no meningismus
Cardiac: Regular rate and rhythm, no murmurs. No reproducible tenderness to anterior chest wall.
Pulm: Normal respiratory effort, no wheezes, rales, rhonchi heard on exam
Abdomen: Soft and nontender.
Extremities: Left leg minimally shortened. Tenderness in left inguinal region and left proximal thigh. No tenderness of left knee or left ankle. Very limited range of motion in left leg secondary to pain. Edema of bilateral lower extremities
with 2+ palpable DP pulses. Chronic wounds of LLE. Right lower extremity atraumatic and nontender full range of motion. Mild tenderness left proximal humerus. Distal pulses intact.
Neuro: AAOx3. No gross deficits
Psychiatric: Normal affect.
Course
<Amalia Vo PA-C - Last Filed: 12/08/24 03:13>
Orders/Labs/Results
Orders:
Orders
12/07/24 20:38
Cardiac Monitoring- Treatment ONCE
IV Insert/Care/Rem.- Treatment PRN
Pulse Ox/spot Check [RESP] Urgent
Quantity: 1
Special Instructions: ON ROOM AIR
12/07/24 20:39
Complete Blood Count/With Diff Urgent
Comprehensive Metabolic Panel Urgent
12/07/24 21:51
Electrocardiogram (*1) Urgent
Reason for Study: Fatigue / Weakness
EKG- Treatment ONCE
Hip, Left 2-3 Views [CR Hip - LT w/wo Pel 2-3 Vw*] Urgent
Comment:
Reason For Exam: fall
Include a pelvis x-ray?: Yes
Shoulder, Right 2 Views [CR Shoulder - Right Min 2 View] Urgent
Comment:
Reason For Exam: fall
12/07/24 21:54
Acetaminophen [Tylenol] 1,000 mg PO NOW STA
12/07/24 22:58
Femur, Left 2 View [CR Femur - Left Min 2 Vw] Urgent
Comment:
Reason For Exam: fall
12/08/24 01:32
Morphine Sulfate 4 mg IV NOW STA
12/08/24 02:20
Admit/Transfer Patient As Directed
Co-Sign Provider:
Level of Care: Inpatient admission
Assign to:: Medical/Surgical
Physician / Group: Lito
Diagnosis: Left knee periprosthetic fracture
Reason for Hospitalization: left knee periprosthetic fracture
Expected length of stay greater than two midnights?: Yes
ELOS- Estimated Length of Stay in days: 2
I certify the patient meets the requirements for IP care: Yes
12/08/24 02:21
PRN Pain Medication Management As Directed
May give lesser potent ordered pain med per pt: Yes
preference::
Protocol:: Medication orders for pain may be administered in a
manner that supports deferring to patient preference
when the pt is:
- Requesting an ordered lesser potent pain medication.
Least to most potent pain medications are defined
as: acetaminophen < NSAID < tramadol < opioids
(morphine, oxycodone, hydromorphone).
- Requesting a lesser dose of the same medication IF
ORDERED.
- Requesting a less intrusive route of administration
if both routes are prescribed by the provider (PO <
IV).
12/08/24 02:22
Code Status As Directed
Resuscitation Status: Full Code
12/08/24 03:24
Acetaminophen [Tylenol] 650 mg PO Q4HWA PRN
Magnesium Hydroxide [Milk of Magnesia] 30 ml PO DAILYPRN PRN
Morphine Sulfate 2 mg IV Q2HPRN PRN
Oxycodone [Roxicodone] 5 mg PO Q4HPRN PRN
Tamsulosin [Flomax] 0.4 mg PO DAILYPRN PRN
12/08/24 03:24
Activity As Directed
Activity Level: Bedrest
Bladder Scan As Directed
Follow Bladder Retention/Intermittent Cath Algorithm?: Yes
PRN if no void in __ hours: 6
Comment: if not voiding 6 hrs upon arrival to floor, bladder scan & follow algorithm
Intake/ Output As Directed
Frequency: Per unit guidelines
Pneumatic Compression Sleeves As Directed
Type: Knee high
Comment: Right lower extremity
Straight Cath As Directed
Frequency: Per Retention Algorithm
Additional Instructions: straight cath as needed per acute urinary retention algorithm for 24 hrs
Additional Instructions: for bladder scan greater than 400 mL
Vital Signs As Directed
Frequency: Per unit guidelines
DX Deep Vein Thrombosis Video Routine
12/08/24 Breakfast
NPO
Allow oral meds: Yes
Allow clear liquids: Sips of Clears
12/08/24 08:00
Gabapentin [Neurontin] 100 mg PO TID
Lisinopril [Zestril] 20 mg PO DAILY
12/08/24 20:00
Docusate Sodium [Colace] 100 mg PO BID
Sennosides [Senokot] 17.2 mg PO BID
12/08/24 22:00
Gabapentin [Neurontin] 300 mg PO HS
Abnormal Lab Results
12/07/24
20:39
RBC 4.14 L 10^6/uL
(4.70-6.10)
Hgb 10.5 L g/dL
(13.0-18.0)
Hct 35.2 L %
(39.0-52.0)
MCH 25.4 L pg
(27.0-31.0)
MCHC 29.8 L g/dL
(33.0-37.0)
Absolute Neuts (auto) 6.9 H 10^3/uL
(1.4-6.5)
Absolute Lymphs (auto) 0.6 L 10^3/uL
(1.2-3.4)
Absolute Monos (auto) 0.8 H 10^3/uL
(0.1-0.6)
Neutrophils % 79.5 H %
(42.2-75.2)
Lymphocytes % 7.3 L %
(20.5-51.1)
Monocytes % 9.4 H %
(1.7-9.3)
BUN 31 H mg/dl
(9-20)
Creatinine 0.6 L mg/dL
(0.7-1.3)
Glucose 143 H mg/dl
(70-99)
AST 16 L U/L
(17-59)
12/07/24 20:39
12/07/24 20:39
Vital Signs
Initial and Last Documented VS:
Initial Vital Signs
Pulse Resp
93 28
12/07/24 20:39 12/07/24 20:39
Last Documented Vital Signs
Temp Pulse Resp BP Pulse Ox
97.4 F 94 18 124/60 95
12/08/24 14:00 12/08/24 14:00 12/08/24 14:00 12/08/24 14:00 12/08/24 14:00
<Carol Reeder MD - Last Filed: 12/10/24 10:34>
Orders/Labs/Results
Orders:
Orders
12/07/24 20:38
Cardiac Monitoring- Treatment ONCE
IV Insert/Care/Rem.- Treatment PRN
Pulse Ox/spot Check [RESP] Urgent
Quantity: 1
Special Instructions: ON ROOM AIR
12/07/24 20:39
Complete Blood Count/With Diff Urgent
Comprehensive Metabolic Panel Urgent
12/07/24 21:51
Electrocardiogram (*1) Urgent
Reason for Study: Fatigue / Weakness
EKG- Treatment ONCE
Hip, Left 2-3 Views [CR Hip - LT w/wo Pel 2-3 Vw*] Urgent
Comment:
Reason For Exam: fall
Include a pelvis x-ray?: Yes
Shoulder, Right 2 Views [CR Shoulder - Right Min 2 View] Urgent
Comment:
Reason For Exam: fall
12/07/24 21:54
Acetaminophen [Tylenol] 1,000 mg PO NOW STA
12/07/24 22:58
Femur, Left 2 View [CR Femur - Left Min 2 Vw] Urgent
Comment:
Reason For Exam: fall
12/08/24 01:32
Morphine Sulfate 4 mg IV NOW STA
12/08/24 02:20
Admit/Transfer Patient As Directed
Co-Sign Provider:
Level of Care: Inpatient admission
Assign to:: Medical/Surgical
Physician / Group: Lito
Diagnosis: Left knee periprosthetic fracture
Reason for Hospitalization: left knee periprosthetic fracture
Expected length of stay greater than two midnights?: Yes
ELOS- Estimated Length of Stay in days: 2
I certify the patient meets the requirements for IP care: Yes
12/08/24 02:21
PRN Pain Medication Management As Directed
May give lesser potent ordered pain med per pt: Yes
preference::
Protocol:: Medication orders for pain may be administered in a
manner that supports deferring to patient preference
when the pt is:
- Requesting an ordered lesser potent pain medication.
Least to most potent pain medications are defined
as: acetaminophen < NSAID < tramadol < opioids
(morphine, oxycodone, hydromorphone).
- Requesting a lesser dose of the same medication IF
ORDERED.
- Requesting a less intrusive route of administration
if both routes are prescribed by the provider (PO <
IV).
12/08/24 02:22
Code Status As Directed
Resuscitation Status: Full Code
12/08/24 03:24
Acetaminophen [Tylenol] 650 mg PO Q4HWA PRN
Magnesium Hydroxide [Milk of Magnesia] 30 ml PO DAILYPRN PRN
Morphine Sulfate 2 mg IV Q2HPRN PRN
Oxycodone [Roxicodone] 5 mg PO Q4HPRN PRN
Tamsulosin [Flomax] 0.4 mg PO DAILYPRN PRN
12/08/24 03:24
Activity As Directed
Activity Level: Bedrest
Bladder Scan As Directed
Follow Bladder Retention/Intermittent Cath Algorithm?: Yes
PRN if no void in __ hours: 6
Comment: if not voiding 6 hrs upon arrival to floor, bladder scan & follow algorithm
Intake/ Output As Directed
Frequency: Per unit guidelines
Pneumatic Compression Sleeves As Directed
Type: Knee high
Comment: Right lower extremity
Straight Cath As Directed
Frequency: Per Retention Algorithm
Additional Instructions: straight cath as needed per acute urinary retention algorithm for 24 hrs
Additional Instructions: for bladder scan greater than 400 mL
Vital Signs As Directed
Frequency: Per unit guidelines
DX Deep Vein Thrombosis Video Routine
12/08/24 Breakfast
NPO
Allow oral meds: Yes
Allow clear liquids: Sips of Clears
12/08/24 08:00
Gabapentin [Neurontin] 100 mg PO TID
Lisinopril [Zestril] 20 mg PO DAILY
12/08/24 20:00
Docusate Sodium [Colace] 100 mg PO BID
Sennosides [Senokot] 17.2 mg PO BID
12/08/24 22:00
Gabapentin [Neurontin] 300 mg PO HS
Abnormal Lab Results
12/07/24
20:39
RBC 4.14 L 10^6/uL
(4.70-6.10)
Hgb 10.5 L g/dL
(13.0-18.0)
Hct 35.2 L %
(39.0-52.0)
MCH 25.4 L pg
(27.0-31.0)
MCHC 29.8 L g/dL
(33.0-37.0)
Absolute Neuts (auto) 6.9 H 10^3/uL
(1.4-6.5)
Absolute Lymphs (auto) 0.6 L 10^3/uL
(1.2-3.4)
Absolute Monos (auto) 0.8 H 10^3/uL
(0.1-0.6)
Neutrophils % 79.5 H %
(42.2-75.2)
Lymphocytes % 7.3 L %
(20.5-51.1)
Monocytes % 9.4 H %
(1.7-9.3)
BUN 31 H mg/dl
(9-20)
Creatinine 0.6 L mg/dL
(0.7-1.3)
Glucose 143 H mg/dl
(70-99)
AST 16 L U/L
(17-59)
12/07/24 20:39
12/07/24 20:39
Vital Signs
Initial and Last Documented VS:
Initial Vital Signs
Pulse Resp
93 28
12/07/24 20:39 12/07/24 20:39
Last Documented Vital Signs
Temp Pulse Resp BP Pulse Ox
97.4 F 94 18 124/60 95
12/08/24 14:00 12/08/24 14:00 12/08/24 14:00 12/08/24 14:00 12/08/24 14:00
<Amalia Vo PA-C - Last Filed: 12/08/24 03:13>
MDM/Problems Addressed
Differential Diagnosis Includes:
Not limited to: Hip fracture, pelvic fracture, hip dislocation, femur fracture, proximal humerus fracture, etc.
MDM/Problems Addressed:
74-year-old male with left hip/upper leg pain after mechanical fall at home just prior to arrival. Denies head strike or loss of conscious. No associated headache, neck pain, back pain, chest pain, shortness of breath. Unable to bear weight
following fall. Vital stable. On exam�patient appears uncomfortable. There is no evidence of head or neck trauma. He does have significant bilateral edema, which is baseline. Left lower extremity appears minimally shortened with reproducible
tenderness in left inguinal region and left proximal thigh. Mild tenderness to right proximal humerus. Distal pulses intact. He is alert and oriented x 3 without any focal deficits.
Ultimately, fall seems mechanical in nature. Do not suspect syncope. Basic labs were sent prior to my evaluation which reveals stable anemia. Chemistry unremarkable.
Will obtain x-ray imaging of left hip/pelvis and right shoulder. Will check CT head and cervical spine given unwitnessed nature of fall. Will obtain EKG
Update: I was contacted by [facility] who states that he was attempting to transfer patient to CAT scan when he repeatedly refused CT imaging of his head and cervical spine as it 'is unnecessary' as he did not hit his head. He is aware of trauma
associated with fall and potential missed life-threatening diagnoses without pursuing further imaging.
X-ray imaging reviewed by me which reveals left femur fracture. No evidence of acute fracture of left hip or pelvis. Right shoulder x-ray without acute findings. Case discussed at length with our orthopedic, Dr. Ortega who reviewed imaging.
Patient did have a recent left total knee replacement at [facility] with Dr. Alfredito English in December 2023. Left femur fracture extends distally just above left prosthetic knee. Given proximity to knee with recent replacement, will discuss
with [facility] for potential transfer
Update: Patient was accepted to [facility] for continuation of care under Dr. Yu Yancey. No beds available tonight. Will admit to hospitalist pending transfer. Patient remains hemodynamically stable in no distress. Will keep patient
n.p.o. for potential OR tomorrow at [place].
Chronic conditions affecting care:
CHF, hypertension, lymphedema
<Amalia Vo PA-C - Last Filed: 12/08/24 03:13>
*Radiology
Radiology exam reviewed: preliminary read by ED provider (X-ray imaging reviewed by me-periprosthetic fracture of left femur)
*Pulse Oximetry
SaO2: 89
Oxygen Mode of Delivery: Room air
Patient hypoxic: no
*EKG
Interpreted by ED Provider?: Yes
EKG Intrepretation Date: 12/08/24
Interpretation: normal
Comparison EKG: no changes
Heart Rate: 92
Rate: normal
Rhythm: sinus
Reynolds: normal axis
Interval: normal QT interval
QRS Pattern: normal QRS
Ischemia: no ischemia
*Surgery Consultant Interpretation
Rate: Surgery Consultant- N/A
*Critical Care Note
Total Time (30-74mins, 75-104mins- exclusive of procedures): Not Applicable
<Amalia Vo PA-C - Last Filed: 12/08/24 03:13>
Patient Management
Discussion with other providers: Hospitalist and Crime Scene Technician (Case discussed with orthopedics)
Escalation/DeEscalation of care consider admission/obs:
Admit pending transfer to [facility]
ED Attending Note
<Amalia Vo PA-C - Last Filed: 12/08/24 03:13>
-
Portions of this chart may have been created with voice recognition software.� Occasional wrong word or��sound alike� substitutions may have occurred due to the inherent limitations of voice recognition software.
<Carol Reeder MD - Last Filed: 12/10/24 10:34>
ED Attending Note
Patient seen and examined by attending physician: Yes
I performed the substantive portion of visit, reviewed & personally made and approve the management plan that is documented in note by myself or ROSEANN.: Yes
ED Attending Note:
74-year-old male who fell from standing at home now complaining of left groin and femur pain. He denies head injury or loss of consciousness, neck pain, numbness, tingling. He also has mild right shoulder pain. Patient brought by EMS. On exam
here, patient has limited range of motion and obvious tenderness to palpation of the left lower extremity particularly at the distal femur. Pulses intact. Bilateral lower extremity edema noted which patient states is baseline. Patient awake and
alert, appropriate. Work appear consistent with distal femur fracture. PA discussed with Ortho here, Dr. Ortega, who internal corrosion specialist recommended discussion with patient's original knee surgeon at [place]. Disposition has excepted patient at [place]
however there are no beds available until least tomorrow morning. As such, patient will be admitted to the hospital. He will be kept n.p.o., pain management, hydration. Patient updated regarding plan of care.
Discharge Plan
Departure
Patient Disposition: Admit
Date of Disposition: 12/08/24
Time of Disposition: 01:08
Presentation/result/management discussed w/ accepting MD/DO: Hospitalist
Discharge Problem:
Periprosthetic fracture around internal prosthetic left knee joint, Femur fracture, left
Interventions
Interventions:
*Risk Screen - Suicide Last Done: 12/07/24 20:33
*General Assessment Last Done: 12/07/24 20:33
*Neglect/Abuse Screening Last Done: 12/07/24 20:33
*ED- Fall Risk Assessment Last Done: 12/07/24 20:33
*ED COVID-19 Vaccine History Last Done: 12/07/24 20:33
*ED Influenza Vaccine History Last Done: 12/07/24 20:33
*Nursing Disposition Last Done: 12/08/24 03:14
ED-Musculoskeletal Assessment Last Done: 12/07/24 20:35
ED- Neurological Assessment Last Done: 12/07/24 20:35
ED-Skin Assessment Last Done: 12/07/24 20:35
Discharge Date and Time
Discharge Date/Time: 12/08/24 03:16
[2024-12-08 01:51] VITALS: BP 120/59
[2024-12-08] MEDS: MORPHINE SULFATE 4 MG IV (01:51)
[2024-12-08 02:00] VITALS: BP 111/62
--- NOTE | 2024-12-08 02:14 | HPS.HSE ---
Family Physician
-
Family Physician: Paty Mills
Chief Complaint
-
Fall
History of Present Illness
This is a 74-year-old with past medical history significant for hypertension, chronic lower extremity fluid retention, chronic bilateral lower extremity wounds secondary to venous stasis, obesity, MEG not on CPAP, hyperlipidemia presenting to the
emergency department status post mechanical fall at home.
Patient was operating his refrigerator door when he tried to turn around and unfortunately crossed his legs tripping over and falling. He had pain immediately. There was no loss of consciousness. He denied having any prior chest discomfort
lightheadedness or dizziness.
Patient is on chronic Lasix for lower extremity edema and does have chronic venous stasis for which he follows with wound care. He has compression dressings and also used sequential compression devices at home. He is status post left total knee
arthroplasty as well as prior right knee surgery.
In the emergency department patient was afebrile, blood pressure was 193/65 with a pulse rate of 89 satting and 95% on room air. ECG shows a normal sinus rhythm at a rate of 92.
CBC was unremarkable, electrolytes BUN/creatinine were all in the normal range.
Skeletal survey shows a left periprosthetic fracture of the femur.
Medical History
Past Medical History
Past Medical History: Reports Other
Additional Past Medical History:
Chronic Venous Stasis / Venous Insufficiency
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
Morbid Obesity
Hypertension
MEG not Currently on CPAP
Past Surgical History: Reports Other
Additional Past Surgical History:
Left TKA
RLE Vein Stripping
Appendectomy
Social History
Tobacco: Non-smoker
Alcohol: None
Drug: None
Family History
Family History: Not pertinent and Other (Mother: Breast Cancer)
Allergies / Home Medications
Allergies reflects when Allergies were last updated in [employer].
Home Medications with original date entered in [employer]
Allergy/Medication List:
Allergies
Allergy/AdvReac Type Severity Reaction Status Date / Time
No Known Allergies Allergy Verified 12/28/23 17:49
Home Medications
ascorbic acid (vitamin C) [Vitamin C] 500 MG tablet
500 mg PO BID
ferrous sulfate [FeroSul] 325 MG tablet
325 mg PO BID
glucosamine sulfate [Glucosamine] 500 mg Tablet
500 mg PO HS
aspirin 81 mg Tablet,Chewable
81 mg PO DAILY
cholecalciferol (vitamin D3) 25 mcg (1,000 unit) Tablet
20 mcg PO DAILY
lisinopril 20 mg Tablet
20 mg PO DAILY
cyanocobalamin (vitamin B-12) 1,000 mcg Tablet
1,000 mcg PO DAILY
hydrocodone-acetaminophen 5-325 mg Tablet
1 tab PO Q6HPRN PRN (Reason: severe pains)
bumetanide 0.5 mg Tablet
0.5 mg PO BID
gabapentin 300 mg Capsule
300 mg PO HS
gabapentin 100 mg Capsule
100 mg PO TID
Review of Systems
-
Constitutional: Reports No Symptoms
EENT: Reports No Symptoms
Respiratory: Reports No Symptoms
Cardiac: Reports No Symptoms
Abdomen/GI: Reports No Symptoms
: Reports No Symptoms
Musculoskeletal: Reports Joint Pain
Skin: Reports No Symptoms
Neurological: Reports No Symptoms
Endocrine: Reports No Symptoms
Hematologic/Lymphatic: Reports No Symptoms
Psych: Reports No Symptoms
Physical Exam
Vital Signs
Vital Signs
Pulse Resp BP Pulse Ox
89 25 133/65 89
12/07/24 22:45 12/07/24 22:45 12/07/24 22:00 12/07/24 23:26
Physical Exam
General: Well Developed and Pain
HEENT: Moist mucous membranes
Respiratory: Clear
Cardiac: S1/S2 and Regular Rhythm; No Tachycardia
GI: Soft, Non Tender and Other (Obese)
Musculoskeletal: Edema, Left Lower Extremity and Edema, Right Lower Extremity
Neuro: AO x 3
Psych: Calm
Laboratory Results
-
12/07/24 20:39
12/07/24 20:39
Laboratory Results
Total Bilirubin 0.7 mg/dl (0.2-1.3) 12/07/24 20:39
AST 16 U/L (17-59) L 12/07/24 20:39
ALT 13 U/L (0-50) 12/07/24 20:39
Alkaline Phosphatase 63 U/L (38-126) 12/07/24 20:39
Data Reviewed
-
Diagnostic Radiology: Image Personally Visualized and interpreted
Medical Tests (Nuc Med, Echo, EKG etc): Image Personally Visualized and interpreted
Lab Data: Labs Reviewed by me
Old Records: Reviewed
Impression/Plan
-
IMPRESSION:
74-year-old with past medical history significant for CHF, chronic lower extremity edema, chronic infection of the lower extremity status post left total knee arthroplasty, morbid obesity presenting to the emergency department following a mechanical
fall. Found to have a left knee periprosthetic fracture.
PLAN:
Left knee periprosthetic fracture -plan is to go to surgery in the morning at [facility]. Patient is accepted at [facility] and awaiting the bed. Dr. Yu Yancey has accepted the patient. Knee replacement was previously done by Dr. English at
[facility]. Plan is to go to the OR at [facility] tomorrow.
-Admit to MedSurg
-N.p.o. for now
- no thinners
- pain control
- hold lasix and hold iv fluids for now
- non weight bearing status
- monitor for retention
- transfer documents in [facility], [facility] to call back in AM.
HTN
- continue lisinopril for now
- hold furosemide
DVT PPX - SCD to right leg
Code status - Full Code
[2024-12-08 04:07] VITALS: BP 141/67
[2024-12-08 04:10] VITALS: BMI 45.5
--- NOTE | 2024-12-08 04:41 | PTCARENOTE ---
Patient arrived on unit @0320 via stretcher from ED. Patient pulled over to bed from stretcher with assist x4. Patient AAOx3, c/o pain to left hip upon movement, states pain level is 5/10 when not moving. Upon skin assessment patient is wearing
compression dressings to b/l legs, requested chronic bilateral lower extremity wounds to be assessed in AM and not immediately. Patient oriented to unit, call perez within reach, plan of care continues.
[2024-12-08] MEDS: ZESTRIL 20 MG PO (07:48)
[2024-12-08] MEDS: NEURONTIN 100 MG PO (07:48)
[2024-12-08] MEDS: MORPHINE SULFATE 2 MG IV ×2 (07:48→13:36)
[2024-12-08 08:30] VITALS: BP 118/67
--- NOTE | 2024-12-08 09:23 | PTCARENOTE ---
Addendum entered by Kiki Abarca RN 12/08/24 14:13:
[facility] nurse Maxine updated on transport time. Pt leaving at this time via [facility] transport. Pain meds given before transport. Report provided to EMS.
Addendum entered by Kiki Abarca RN 12/08/24 09:47:
Pickup time 1400. Patient updated.
Original Note:
Transfer initiated. Discharge order received. Report provided to Maxine LOPEZ at [facility]. Phone number used: [phone]. Bed: 497 on 4D. Awaiting pickup transport time.
--- NOTE | 2024-12-08 10:09 | W.PN.UPDATE ---
Update Note
Progress Note Update
patient admitted earlier this AM for cecilia-prosthetic L distal femur fracture.
pending transfer to [place] for surgical intervention (previously operated on by Dr. English for Left Knee replacement). Transfer occurring around 2pm per unit staff
Currently pain is well controlled. denies any new complaints.
--- NOTE | 2024-12-08 10:13 | W.DCSUMMARY ---
Discharge Summary
Discharge Data
Date of Admission: 12/08/24
Date of Discharge: 12/08/24
-
Pending Results: No
Hospital Course
74 y/o M, hx of MEG, HTN, Obesity, Chronic Non-Healing Ulcer of the Right Lower Leg from chronic venous stasis, prior L knee replacement presented 12/07 with mechanical fall. He was found to have a displaced, foreshortened and angulated oblique
fracture through the mid/distal femoral shaft. Pain control and bedrest was ordered. He was transferred to [facility] on 12/08 for surgical intervention given his prior L knee replacement was performed [address] English).
Discharge Plan
-
Patient Disposition: Acute Care Hospital
Condition: Fair
Discharge Orders:
Discharge Patient (As Directed); Ordered 12/08/24
Ordered By: Lianne Méndez
Discharge Date and Time
Print Language: IRISH
[2024-12-08 14:00] VITALS: BP 124/60
--- NOTE | 2024-12-08 15:01 | CM ---
Patient was discharged via ambulance to [facility] for Orthopedic services.
== END 2024-12-08 14:13 | disposition short-term general hospital (02) | DRG 534 ==
LOC: 3 WEST ACU 02:45
PROVIDERS: Emergency Medicine; ADMITTING PHYSICIAN Internal Medicine; ATTENDING PHYSICIAN Internal Medicine; EMERGENCY PHYSICIAN Emergency Medicine; FAMILY PHYSICIAN Nurse Practitioner Adult Health
DX: S72.492A Other fracture of lower end of left femur, initial encounter for closed fracture (principal); M97.12XA Periprosthetic fracture around internal prosthetic left knee joint, initial encounter; I11.0 Hypertensive heart disease with heart failure; I50.9 Heart failure, unspecified; I89.0 Lymphedema, not elsewhere classified; I73.9 Peripheral vascular disease, unspecified; I87.8 Other specified disorders of veins; R60.9 Edema, unspecified; G47.33 Obstructive sleep apnea (adult) (pediatric); E78.5 Hyperlipidemia, unspecified; I87.2 Venous insufficiency (chronic) (peripheral); K21.9 Gastro-esophageal reflux disease without esophagitis; E66.01 Morbid (severe) obesity due to excess calories; W01.0XXA Fall on same level from slipping, tripping and stumbling without subsequent striking against object, initial encounter; Y93.01 Activity, walking, marching and hiking; Y92.000 Kitchen of unspecified non-institutional (private) residence as the place of occurrence of the external cause; Z87.01 Personal history of pneumonia (recurrent); Z79.899 Other long term (current) drug therapy
CPT/HCPCS: 73030; 73502; 73552; 80053; 85025; 87070; 93005; 94760; 96374; 99285